=== PATIENT | male | born 1935 | race Caucasian/White ===

== ENCOUNTER 2016-04-13 09:54 | Outpatient (CLI) | payer MEDICARE, OTHER | END 2016-04-13 09:55 | disposition home or self-care (01) | DX: D63.1 Anemia in chronic kidney disease (principal) ==

== ENCOUNTER 2016-06-24 09:35 | Outpatient (CLI) | payer MEDICARE, OTHER | END 2016-06-24 09:36 | disposition home or self-care (01) | DX: I05.9 Rheumatic mitral valve disease, unspecified (principal); I25.10 Atherosclerotic heart disease of native coronary artery without angina pectoris ==

== ENCOUNTER 2017-04-10 08:00 | Outpatient (CLI) | payer MEDICARE, OTHER ==
[2017-04-10 19:35] LABS: BASOPHILS % (AUTO) 0.6 %; EOSINOPHILS # (AUTO) 0.4 10^3/uL (0.0-0.7); EOSINOPHILS % (AUTO) 6.9 %; HGB - HEMOGLOBIN 13.3 g/dL (14.0-18.0); LYMPHOCYTES # (AUTO) 1.2 10^3/uL (1.5-3.5); LYMPHOCYTES % (AUTO) 23.2 %; MEAN CORPUSCULAR HEMOGLOBIN 32.5 pg (27.0-31.0); MEAN CORPUSCULAR HGB CONC 33.3 g/dL (32.0-36.0); MEAN CORPUSCULAR VOLUME 97.6 fL (80.0-94.0); MEAN PLATELET VOLUME 7.2 fL (7.4-11.4); MONOCYTES # (AUTO) 0.7 10^3/uL (0.0-1.0); MONOCYTES % (AUTO) 12.5 %; NEUTROPHILS % (AUTO) 56.8 %; PLT - PLATELET COUNT 232 10^3/uL (130-450); RED BLOOD COUNT 4.11 10^6/uL (4.70-6.10); RED CELL DISTRIBUTION WIDTH 14.1 % (12.0-15.0); WHITE BLOOD COUNT 5.3 x10^3/uL (4.8-10.8)
[2017-04-10 19:40] LABS: ALBUMIN 3.7 g/dL (3.2-5.5); BILIRUBIN,TOTAL 0.4 mg/dL (0.2-1.0); CALCIUM 9.8 mg/dL (8.5-10.3); CREATININE 2.3 mg/dL (0.6-1.2); TOTAL PROTEIN 7.3 g/dL (6.7-8.2)
== END 2017-04-10 08:01 | disposition home or self-care (01) ==
LOC: LAB.WCP 08:00
PROVIDERS: ATTEND Family Medicine
DX: I50.9 Heart failure, unspecified (principal); I25.10 Atherosclerotic heart disease of native coronary artery without angina pectoris; D63.1 Anemia in chronic kidney disease; N18.9 Chronic kidney disease, unspecified; I12.9 Hypertensive chronic kidney disease with stage 1 through stage 4 chronic kidney disease, or unspecified chronic kidney disease
CPT/HCPCS: 36415; 80053; 84443; 85025

== ENCOUNTER 2017-07-24 21:52 | Emergency (ER) | payer MEDICARE, OTHER ==
--- NOTE | 2017-07-24 22:46 | ED Physician Documentation ---
History of Present Illness - Stated complaint Stated Complaint: HI FEVER - Chief complaint Chief Complaint: Resp - History obtained from History obtained from: Patient - History of Present Illness Timing: Yesterday Pain level now: 0 Improved by: no ameliorating factors Worsened by: no exacerbating factors - Additonal information Additional information: c/o rhinorrhea (clear, thin), CAN CRIMPER cough, mild generalized headache, and sinus congestion since yesterday. His chief concern wast that tonight he measured fever of 100.4 at home. He did not take anything that would reduce fever (such as acetaminophen or ibuprofen) today or tonight. Review of Systems Constitutional: reports: Fever (Tmax 100.4). denies: Chills, Myalgias, Fatigue , Sweats Ears: denies: Ear pain Nose: reports: Rhinorrhea / runny nose, Congestion. denies: Sinus pressure / pain Throat: denies: Sore throat Cardiac: reports: Reviewed and negative Respiratory: reports: Cough. denies: Dyspnea, Wheezing GI: reports: Reviewed and negative PD PAST MEDICAL HISTORY - Past Medical History Cardiovascular: Hypertension, High cholesterol, Coronary artery disease, [place], Valve disorder Respiratory: Pneumonia, Sleep apnea, CPAP use Neuro: None Endocrine/Autoimmune: None GI: None : None Psych: None Musculoskeletal: None Derm: Eczema, Psoriasis - Past Surgical History Past Surgical History: Yes General: Cholecystectomy, Appendectomy, Hiatal hernia repair Cardiovascular: CABG, Coronary stent, Other HEENT: Tonsil/Adenoidectomy - Present Medications Home Medications: Ambulatory Orders Medication Instructions Recorded Confirmed Aspirin [Maribeth] 325 mg PO ONCE 02/02/13 01/13/15 Atorvastatin Calcium [Lipitor] 80 mg PO HS 02/02/13 01/13/15 Carvedilol [Coreg] 6.25 mg PO BID 02/02/13 01/13/15 Cetirizine [ZyrTEC] 5 mg PO DAILY 02/02/13 01/13/15 Cholecalciferol (Vitamin D3) 4,000 unit PO DAILY 02/02/13 01/13/15 [Vitamin D-3] Clopidogrel [Plavix] 75 mg PO ONCE 02/02/13 01/13/15 Fluticasone [Flonase] 1 sprays CLARK DAILY 02/02/13 01/13/15 Folic Acid 800 mg PO DAILY 02/02/13 01/13/15 Furosemide [Lasix] 10 mg PO DAILY 02/02/13 01/13/15 Losartan [Cozaar] 25 mg PO DAILY 02/02/13 01/13/15 Clobetasol Propionate/Emoll 1 applic TOP QPM 03/29/14 01/13/15 [Temovate Emollient 0.05% Crm] Esomeprazole Magnesium [Nexium] 1 cap PO BID 03/29/14 01/13/15 Isosorbide Mononitrate [Isosorbide 30 mg PO BID 03/29/14 01/13/15 Mononitrate ER] Nitroglycerin Dixon [Nitrolingual 1 spray SL DAILY 03/29/14 01/13/15 Dixon] - Allergies Allergies/Adverse Reactions: Allergies Allergy/AdvReac Type Severity Reaction Status Date / Time Penicillins AdvReac Severe passed out Verified 07/24/17 22:32 codeine [Codeine] AdvReac Intermediate gi problems Verified 07/24/17 22:32 onion family Allergy Emesis Uncoded 07/24/17 22:32 - Social History Does the pt smoke?: No Smoking Status: Never smoker Does the pt drink ETOH?: Yes Does the pt have substance abuse?: No - Immunizations Immunizations are current?: No Immunizations: TDAP >10years/unknown - POLST Patient has POLST: Yes PD ED PE NORMAL - Vitals Vital signs reviewed: Yes - General General: Alert and oriented X 3, No acute distress, Well developed/nourished - HEENT HEENT: Moist mucous membranes, Pharynx benign - Neck Neck: Supple, no meningeal sign - Cardiac Cardiac: RRR, No murmur - Respiratory Respiratory: No respiratory distress, Clear bilaterally - Extremities Extremities: No edema Results - Vitals Vitals: Vital Signs - 24 hr 07/24/17 07/24/17 21:55 23:10 Temperature 37.1 C 37.3 C Heart Rate 63 67 Respiratory 18 16 Rate Blood Pressure 172/90 H 157/69 H O2 Saturation 95 100 Oxygen O2 Source Room air PD MEDICAL DECISION MAKING - ED course Complexity details: considered differential, d/w patient ED course: well-appearing, NAD. presents with URI symptoms including sinus congestion. cough but denies dyspnea, chest pain, or sensation of chest congestion. 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 Unremarkable physical exam including CTA bilateral pulmonary exam. VSS. emergent testing not indicated at this time, encouraged to return if worse and f/u with PMD if not improving Departure - Departure Disposition: 01 Home, Self Care Clinical Impression: Bronchitis Sinusitis Qualifiers: Sinusitis location: unspecified location Chronicity: unspecified Qualified Code (s): J32.9 - Chronic sinusitis, unspecified Condition: Good Instructions: ED Upper Resp Infec No Abx Tx, ED Sinusitis No Abx Follow-Up: Jorge Lema MD [Primary Care Provider] - Discharge Date/Time: 07/24/17 23:15
[2017-07-24 23:21] VITALS: BP 157/69
== END 2017-07-24 23:15 | disposition home or self-care (01) ==
LOC: ED 21:52
DX: J40 Bronchitis, not specified as acute or chronic (principal); J32.9 Chronic sinusitis, unspecified; I10 Essential (primary) hypertension; E78.00 Pure hypercholesterolemia, unspecified; I25.10 Atherosclerotic heart disease of native coronary artery without angina pectoris; I25.2 Old myocardial infarction; Z95.5 Presence of coronary angioplasty implant and graft; Z95.1 Presence of aortocoronary bypass graft; Z79.82 Long term (current) use of aspirin
CPT/HCPCS: 99282; 99283

== ENCOUNTER 2017-12-20 10:00 | Outpatient (CLI) | payer MEDICARE, OTHER ==
[2017-12-20 12:49] LABS: BASOPHILS % (AUTO) 0.6 %; EOSINOPHILS # (AUTO) 0.3 10^3/uL (0.0-0.7); EOSINOPHILS % (AUTO) 4.9 %; HGB - HEMOGLOBIN 13.6 g/dL (14.0-18.0); LYMPHOCYTES # (AUTO) 1.2 10^3/uL (1.5-3.5); LYMPHOCYTES % (AUTO) 22.5 %; MEAN CORPUSCULAR HEMOGLOBIN 33.5 pg (27.0-31.0); MEAN CORPUSCULAR HGB CONC 34.9 g/dL (32.0-36.0); MEAN PLATELET VOLUME 7.5 fL (7.4-11.4); MONOCYTES # (AUTO) 0.4 10^3/uL (0.0-1.0); MONOCYTES % (AUTO) 7.8 %; NEUTROPHILS # (AUTO) 3.4 10^3/uL (1.5-6.6); NEUTROPHILS % (AUTO) 64.2 %; PLT - PLATELET COUNT 180 10^3/uL (130-450); RED BLOOD COUNT 4.08 10^6/uL (4.70-6.10); RED CELL DISTRIBUTION WIDTH 14.6 % (12.0-15.0); WHITE BLOOD COUNT 5.2 x10^3/uL (4.8-10.8)
[2017-12-20 13:05] LABS: ALBUMIN 4.1 g/dL (3.2-5.5); ALBUMIN/GLOBULIN RATIO 1.5 (1.0-2.2); ALKALINE PHOSPHATASE 85 IU/L (42-121); ALT ALANINE AMINOTRANSFERASE 17 IU/L (10-60); AST ASPARTATE AMINOTRANSFERASE 23 IU/L (10-42); BILIRUBIN,TOTAL 0.7 mg/dL (0.2-1.0); BUN - BLOOD UREA NITROGEN 36 mg/dL (6-20); CALCIUM 10.1 mg/dL (8.5-10.3); CARBON DIOXIDE - CO2 27 mmol/L (21-32); CHLORIDE 104 mmol/L (101-111); CHOL/HDL RATIO 4.4 (<5.0); CHOLESTEROL 194 mg/dL; CREATININE 2.1 mg/dL (0.6-1.2); GFR - MDRD 30 (>89); GLUCOSE 119 mg/dL (70-100); HB2 TOTAL 14.3 g/dL; HDL CHOLESTEROL 44 mg/dL; HEMOGLOBIN A1C 0.59 g/dL; HEMOGLOBIN A1C % 5.9 % (4.6-6.2); LDL CHOLESTEROL,CALCULATED 96 mg/dL; LDL/HDL RATIO 2.2 (<3.6); SODIUM 138 mmol/L (135-145); TOTAL PROTEIN 6.8 g/dL (6.7-8.2); VLDL CHOLESTEROL 54 mg/dL
== END 2017-12-20 10:01 | disposition home or self-care (01) ==
LOC: LAB.WCP 10:00
PROVIDERS: ATTEND Family Medicine
DX: E78.5 Hyperlipidemia, unspecified (principal); R73.02 Impaired glucose tolerance (oral); I10 Essential (primary) hypertension; Z79.899 Other long term (current) drug therapy; D63.1 Anemia in chronic kidney disease
CPT/HCPCS: 36415; 80053; 80061; 83036; 83721; 85025

== ENCOUNTER 2017-12-20 17:19 | Outpatient (CLI) | payer MEDICARE, OTHER ==
--- NOTE | 2017-12-20 18:47 | Ultrasound Report ---
Reason: LEG PAIN, BILATERAL Procedure Date: 12/20/2017 Accession Number: [id number] / [id number] Procedure: US - Duplex Ext Veins Bilateral CPT Code: FULL RESULT: EXAM: BILATERAL LOWER EXTREMITY VENOUS ULTRASOUND EXAM DATE: 12/20/2017 06:05 PM. CLINICAL HISTORY: LEG PAIN, BILATERAL. COMPARISON: None. TECHNIQUE: Real-time sonographic vascular imaging was performed by the headlight adjuster through the lower extremities utilizing both color-flow and Doppler spectral analysis. Multiple manufacturers service representative static images were saved for review. FINDINGS: Right: Common Femoral Vein (CFV): Normal. CFV-GSV Junction: Normal. Profunda Femoral Vein (PFV): Normal. Femoral Vein (FV) Prox: Normal. Femoral Vein (FV) Mid: Normal. Femoral Vein (FV) Dist: Normal. Popliteal Vein: Normal. Posterior Tibial Veins: Normal. Peroneal Veins: Normal. Left: Common Femoral Vein (CFV): Normal. CFV-GSV Junction: Normal. Profunda Femoral Vein (PFV): Normal. Femoral Vein (FV) Prox: Normal. Femoral Vein (FV) Mid: Normal. Femoral Vein (FV) Dist: Normal. Popliteal Vein: Normal. Posterior Tibial Veins: Normal. Peroneal Veins: Normal. Other: None. IMPRESSION: No evidence for deep venous thrombosis bilaterally. RADIA The above findings were discussed with Denice Carty by Dr. Mercy Guadalupe at 18:45 hrs on 12/20/17.
== END 2017-12-20 17:20 | disposition home or self-care (01) ==
LOC: DI 17:19
PROVIDERS: ATTEND Family Medicine
DX: M79.605 Pain in left leg (principal); M79.604 Pain in right leg; Z79.899 Other long term (current) drug therapy; E78.5 Hyperlipidemia, unspecified; I10 Essential (primary) hypertension; D63.1 Anemia in chronic kidney disease
CPT/HCPCS: 36415; 80053; 80061; 83036; 83721; 85025; 93970

== ENCOUNTER 2018-01-08 18:50 | Outpatient (CLI) | payer MEDICARE, OTHER | END 2018-01-08 18:51 | disposition critical access hospital (66) | LOC: EMS 18:50 | PROVIDERS: ATTEND Surgery | DX: R53.1 Weakness (principal); R05 Cough; R50.9 Fever, unspecified; M79.10 Myalgia, unspecified site | CPT/HCPCS: A0425; A0427 ==

== ENCOUNTER 2018-01-08 18:57 | Inpatient (IN) | payer MEDICARE, OTHER ==
[2018-01-08] MEDS ORDERED: OSELTAMIVIR 75 MG CAPSULE PO STA (20:50)
[2018-01-08 21:35] LABS: BASOPHILS % (AUTO) 0.5 %; HGB - HEMOGLOBIN 13.6 g/dL (14.0-18.0); LYMPHOCYTES # (AUTO) 0.6 10^3/uL (1.5-3.5); LYMPHOCYTES % (AUTO) 10.3 %; MEAN CORPUSCULAR HEMOGLOBIN 33.4 pg (27.0-31.0); MEAN CORPUSCULAR VOLUME 95.4 fL (80.0-94.0); MEAN PLATELET VOLUME 7.5 fL (7.4-11.4); MONOCYTES # (AUTO) 0.6 10^3/uL (0.0-1.0); MONOCYTES % (AUTO) 9.7 %; NEUTROPHILS # (AUTO) 4.8 10^3/uL (1.5-6.6); NEUTROPHILS % (AUTO) 79.5 %; PLT - PLATELET COUNT 106 10^3/uL (130-450); RED BLOOD COUNT 4.07 10^6/uL (4.70-6.10); RED CELL DISTRIBUTION WIDTH 14.6 % (12.0-15.0)
[2018-01-08 21:44] LABS: ALBUMIN 3.5 g/dL (3.2-5.5); ALBUMIN/GLOBULIN RATIO 1.2 (1.0-2.2); BILIRUBIN,TOTAL 1.1 mg/dL (0.2-1.0); CALCIUM 8.9 mg/dL (8.5-10.3); CREATININE 2.4 mg/dL (0.6-1.2); TOTAL PROTEIN 6.4 g/dL (6.7-8.2)
[2018-01-08] MEDS ORDERED: ACETAMINOPHEN 500 MG TABLET PO STA (22:20)
[2018-01-08] MEDS ORDERED: SODIUM CHLORIDE 0.9% 1,000 ML IV ONE (22:20)
--- NOTE | 2018-01-08 23:06 | XRAY Report ---
Reason: cough Procedure Date: 01/08/2018 Accession Number: [id number] / [id number] Procedure: XR - Chest 2 View X-Ray CPT Code: 24260 FULL RESULT: EXAM: CHEST RADIOGRAPHY EXAM DATE: 01/08/2018 10:51 PM. CLINICAL HISTORY: Cough. COMPARISON: CHEST 2 VIEW PA/LAT 01/07/2018 2:25 PM. TECHNIQUE: 2 views. FINDINGS: Lungs/Pleura: There are new bibasilar infiltrates present. Trace left effusion. No pneumothorax. Mediastinum: Stable postoperative changes. Other: None. IMPRESSION: New bibasilar infiltrates and trace left effusion. RADIA
[2018-01-08] MEDS ORDERED: PROCHLORPERAZINE 10 MG/2 ML VIAL IVP PRN (23:25)
[2018-01-08] MEDS ORDERED: ONDANSETRON 4 MG/2 ML VIAL IVP PRN (23:25)
[2018-01-08] MEDS ORDERED: SODIUM CHLORIDE FLUSH 0.9% 10 ML SYRINGE IVP PRN (23:25)
[2018-01-08] MEDS ORDERED: oxyCODONE 5 MG TABLET PO PRN (23:25)
[2018-01-08] MEDS ORDERED: ACETAMINOPHEN 325 MG TABLET PO PRN (23:25)
[2018-01-08] MEDS ORDERED: ZOLPIDEM 5 MG TABLET PO PRN (23:25)
[2018-01-08] MEDS ORDERED: PROMETHAZINE 25 MG/1 ML VIAL IM PRN (23:25)
[2018-01-08] MEDS ORDERED: ALBUTEROL NEB 2.5 MG/3 ML INH PRN (23:25)
--- NOTE | 2018-01-08 23:27 | ED Physician Documentation ---
History of Present Illness - Stated complaint Stated Complaint: WEAKNESS - Chief complaint Chief Complaint: General - History obtained from History obtained from: Patient, Family - History of Present Illness Timing: Yesterday - Additonal information Additional information: Patient is an 82 year old male who is presenting to the emergency department for fever, cough and generally not feeling well. Patient saw his pmd and was diagnosed with influenza but was unable to fill his prescription for tamiflu. patient's symptoms got progressively worse this evening and was unable to walk to the bathroom by himself so his brought him in for evaluation. Review of Systems Constitutional: reports: Fever, Chills, Myalgias Nose: reports: Rhinorrhea / runny nose, Congestion Respiratory: reports: Cough GI: reports: Nausea. denies: Vomiting, Constipation, Diarrhea : reports: Reviewed and negative Skin: denies: Rash, Lesions Neurologic: reports: Generalized weakness. denies: Focal weakness, Numbness Immunocompromised: denies: Immunocompromised PD PAST MEDICAL HISTORY - Past Medical History Cardiovascular: Hypertension, High cholesterol, Coronary artery disease, [place], Valve disorder Respiratory: Pneumonia, Sleep apnea, CPAP use Endocrine/Autoimmune: None GI: None : None Psych: None Musculoskeletal: None Derm: Eczema, Psoriasis - Past Surgical History Past Surgical History: Yes General: Cholecystectomy, Appendectomy, Hiatal hernia repair Cardiovascular: CABG, Coronary stent, Other HEENT: Tonsil/Adenoidectomy - Present Medications Home Medications: Ambulatory Orders Medication Instructions Recorded Confirmed Aspirin [Maribeth] 325 mg PO ONCE 02/02/13 01/13/15 Atorvastatin Calcium [Lipitor] 80 mg PO HS 02/02/13 01/13/15 Carvedilol [Coreg] 6.25 mg PO BID 02/02/13 01/13/15 Cetirizine [ZyrTEC] 5 mg PO DAILY 02/02/13 01/13/15 Cholecalciferol (Vitamin D3) 4,000 unit PO DAILY 02/02/13 01/13/15 [Vitamin D-3] Clopidogrel [Plavix] 75 mg PO ONCE 02/02/13 01/13/15 Fluticasone [Flonase] 1 sprays CLARK DAILY 02/02/13 01/13/15 Folic Acid 800 mg PO DAILY 02/02/13 01/13/15 Furosemide [Lasix] 10 mg PO DAILY 02/02/13 01/13/15 Losartan [Cozaar] 25 mg PO DAILY 02/02/13 01/13/15 Clobetasol Propionate/Emoll 1 applic TOP QPM 03/29/14 01/13/15 [Temovate Emollient 0.05% Crm] Esomeprazole Magnesium [Nexium] 1 cap PO BID 03/29/14 01/13/15 Isosorbide Mononitrate [Isosorbide 30 mg PO BID 03/29/14 01/13/15 Mononitrate ER] Nitroglycerin Lannon [Nitrolingual 1 spray SL DAILY 03/29/14 01/13/15 Lannon] - Allergies Allergies/Adverse Reactions: Allergies Allergy/AdvReac Type Severity Reaction Status Date / Time Penicillins AdvReac Severe passed out Verified 01/08/18 18:59 codeine [Codeine] AdvReac Intermediate gi problems Verified 01/08/18 18:59 onion family Allergy Emesis Uncoded 01/08/18 18:59 - Social History Does the pt smoke?: No Smoking Status: Never smoker Does the pt drink ETOH?: Yes Does the pt have substance abuse?: No - Immunizations Immunizations are current?: No Immunizations: TDAP >10years/unknown - POLST Patient has POLST: Yes PD ED PE NORMAL - Vitals Vital signs reviewed: Yes - General General: Alert and oriented X 3 - HEENT HEENT: Atraumatic - Cardiac Cardiac: RRR - Derm Derm: Normal color, Other (diaphoretic) - Extremities Extremities: No deformity - Neuro Neuro: Alert and oriented X 3 Eye Opening: Spontaneous Motor: Obeys Commands Verbal: Oriented GCS Score: 15 PD ED PE EXPANDED - General General: Alert, Other (diaphoretic and ill appearing) - HEENT HEENT: Nasal congestion, Rhinorrhea - Respiratory Respiratory: Decreased breath sounds, Right lower lobe, Left lower lobe Results - Vitals Vitals: Vital Signs - 24 hr 01/08/18 01/08/18 01/08/18 18:59 20:17 22:20 Temperature 37.2 C 38.9 C H Heart Rate 87 73 75 Respiratory 18 20 18 Rate Blood Pressure 102/76 121/62 125/70 O2 Saturation 90 L 90 L 94 01/08/18 23:23 Temperature 39.4 C H Heart Rate 78 Respiratory 16 Rate Blood Pressure 119/64 O2 Saturation 97 Oxygen O2 Source Nasal cannula Oxygen Flow Rate 2 - Labs Labs: Laboratory Tests 01/08/18 01/08/18 01/08/18 19:25 21:20 21:20 WBC 6.0 RBC 4.07 L Hgb 13.6 L Hct 38.8 L MCV 95.4 H MCH 33.4 H MCHC 35.0 RDW 14.6 Plt Count 106 L MPV 7.5 Neut # (Auto) 4.8 Lymph # (Auto) 0.6 L Grayson # (Auto) 0.6 Eos # (Auto) 0.0 Baso # (Auto) 0.0 Absolute Nucleated RBC 0.00 Nucleated RBC % 0.1 Sodium 134 L Potassium 3.8 Chloride 100 L Carbon Dioxide 25 Anion Gap 9.0 BUN 34 H Creatinine 2.4 H Estimated GFR (MDRD) 26 L Glucose 110 H Lactic Acid Calcium 8.9 Total Bilirubin 1.1 H AST 37 ALT 26 Alkaline Phosphatase 78 Total Protein 6.4 L Albumin 3.5 Globulin 2.9 Albumin/Globulin Ratio 1.2 Lipase 32 Influenza A (Rapid) POSITIVE H Influenza B (Rapid) Negative 01/08/18 21:20 WBC RBC Hgb Hct MCV MCH MCHC RDW Plt Count MPV Neut # (Auto) Lymph # (Auto) Grayson # (Auto) Eos # (Auto) Baso # (Auto) Absolute Nucleated RBC Nucleated RBC % Sodium Potassium Chloride Carbon Dioxide Anion Gap BUN Creatinine Estimated GFR (MDRD) Glucose Lactic Acid 1.2 Calcium Total Bilirubin AST ALT Alkaline Phosphatase Total Protein Albumin Globulin Albumin/Globulin Ratio Lipase Influenza A (Rapid) Influenza B (Rapid) - Rads (name of study) chest x-ray Radiology: Final report received (bilateral bibasilar infiltrates) PD MEDICAL DECISION MAKING - ED course Complexity details: reviewed old records, reviewed results, re-evaluated almas lozada, considered differential, d/w patient, d/w family, d/w operations consultant ED course: Patient was seen and examined at bedside. Patient was hypoxic on room air at 90% and treated with supplemental oxygen. patient was positive for influenza and was treated with tamiflu 75mg, ns bolus and tylenol for fever. labs were drawn including cultures. chest x-ray was ordered. patient originally refused the chest x-ray, so there was a delay. Chest x-ray was found to show bilateral infiltrates. Case was discussed with hospitalist. patient was treated with azithromycin and rocephin. Patient was accepted by the hospitalist for for further care. - Sepsis Event Vital Signs: Vital Signs - 24 hr 01/08/18 01/08/18 01/08/18 18:59 20:17 22:20 Temperature 37.2 C 38.9 C H Heart Rate 87 73 75 Respiratory 18 20 18 Rate Blood Pressure 102/76 121/62 125/70 O2 Saturation 90 L 90 L 94 01/08/18 23:23 Temperature 39.4 C H Heart Rate 78 Respiratory 16 Rate Blood Pressure 119/64 O2 Saturation 97 Oxygen O2 Source Nasal cannula Oxygen Flow Rate 2 Departure - Departure Disposition: [facility] DC/Xfer Clinical Impression: Influenza A Condition: Stable Discharge Date/Time: 01/09/18 00:50
[2018-01-08] MEDS ORDERED: IBUPROFEN 600 MG TABLET PO STA (23:40)
[2018-01-08] MEDS ORDERED: ASPIRIN 325 MG TABLET PO SCH (23:45)
[2018-01-08] MEDS ORDERED: CLOPIDOGREL 75 MG TABLET PO SCH (23:45)
[2018-01-08] MEDS ORDERED: SODIUM CHLORIDE 0.9% 1,000 ML IV SCH (23:45)
--- NOTE | 2018-01-08 23:48 | HISTORY & PHYSICAL EXAMINATION ---
Chief Complaint - Chief Complaint Chief Complaint: Weakness and fever History of Present Illness - Admitted From Admitted From:: Emergency Department - History Obtained From Records Reviewed: Yes History obtained from: Patient Exam Limitations: None - History of Present Illness HPI Comment/Other: Patient is an 82-year-old gentleman with a past medical history significant for coronary artery disease status post 8 stents and CABG x2, obstructive sleep apnea on CPAP, mitral regurgitation status post clip repair, hypertension, hyperlipidemia, chronic kidney disease stage III and hiatal hernia repair who presented to the emergency department with a chief complaint of weakness and fever. The patient states that he was in his normal state of health when 2 days ago in the afternoon he was on the phone and then all of a sudden started to feel ill. He states that it started with a runny nose and body aches and then he began to have chills and had the hardest time getting warm again. He states he became extremely weak and could barely get up off the couch. He states that later in the day when getting up out of his bed he actually fell and hit the right side of his torso against a dresser. He states that yesterday he went to see his primary care physician and ended up seeing the physician engineering assistant who ordered a chest x-ray and did a flu swab but did not start him on any treatment. He states that his weakness continued to worsen over the course of the day yesterday. He states today he was having fevers with increasing weakness and began developing a cough with yellow sputum production and felt short of breath. He also states that he has been having headaches and nausea throughout the day. He states that he has a very poor appetite and has barely eaten anything in the last 2 days. He states that since the symptoms were not improving he finally decided to come to the emergency department. Patient denies any blurred vision, sore throat, difficulty swallowing, chest pain, orthopnea, PND, increased lower extremity swelling, abdominal pain, vomiting, diarrhea, constipation, urinary urgency, urinary frequency, dysuria, joint swelling, back pain, neck stiffness, recent unintentional weight loss, skin rash, skin changes, hair loss, polyuria, polydipsia, night sweats or any focal neurologic deficits. On presentation to the emergency department the patient was initially afebrile but then spiked a fever up to 38.9, blood pressure and heart rate remained stable. The patient was slightly hypoxic down to 90% on room air. The patient underwent a flu swab which was positive for influenza A. The patient's lab work revealed acute on chronic renal failure with a creatinine up to 2.4. The atul ent also had slightly elevated BUN and a low sodium all concerning for dehydration. The patient did not have any leukocytosis but did have a mild thrombocytopenia. The patient's chest x-ray revealed bibasilar infiltrates and a trace left effusion concerning for pneumonia. The patient was admitted to the medical escobar for influenza A and community-acquired pneumonia. Blood cultures were taken in the emergency department and patient was started on Tamiflu, ceftriaxone and azithromycin. History - Past Medical History Cardiovascular: reports: Hypertension, High cholesterol, Coronary artery disease, [place], Valve disorder Respiratory: reports: Pneumonia, Sleep apnea, CPAP use Endocrine/Autoimmune: reports: None GI: reports: None : reports: Renal insuffiency Psych: reports: None Musculoskeletal: reports: None Derm: reports: Eczema, Psoriasis MRSA Hx?: No - Past Surgical History General: reports: Cholecystectomy, Appendectomy, Hiatal hernia repair Cardiovascular: reports: CABG, Coronary stent, Other HEENT: reports: Tonsil/Adenoidectomy Derm: reports: Skin cancer surgery - Family & Social History Family History: Mother: (Mother of congestive heart failure and father of cancer), CAD, Father: , Cancer, Brother: Cancer Living arrangement: At home Living Situation: With spouse/s.o. Social History Notes: The patient lives in [place] with his and dog. He has been to his for 50 years they did not have any children. The patient is born and raised in [place] 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 The patient's inherited [address] land in [facility] [facility] [place] from her father and they decided to come here and retire. The patient quit smoking about 50 years ago prior to that he smoked 1 pack a day for 15 years. He drinks alcohol socially but is not a daily drinker. He denies any illicit drug use. - POLST Patient has POLST: No POLST Status: Full Code Meds/Allgy - Home Medications Home Medications: Ambulatory Orders Medication Instructions Recorded Confirmed Aspirin [Maribeth] 325 mg PO ONCE 02/02/13 01/13/15 Atorvastatin Calcium [Lipitor] 80 mg PO HS 10/28/13 10/08/15 Carvedilol [Coreg] 6.25 mg PO BID 02/02/13 01/13/15 Cetirizine [ZyrTEC] 5 mg PO DAILY 02/02/13 01/13/15 Cholecalciferol (Vitamin D3) 4,000 unit PO DAILY 02/02/13 01/13/15 [Vitamin D-3] Clopidogrel [Plavix] 75 mg PO ONCE 02/02/13 01/13/15 Fluticasone [Flonase] 1 sprays CLARK DAILY 02/02/13 01/13/15 Folic Acid 800 mg PO DAILY 02/02/13 01/13/15 Furosemide [Lasix] 10 mg PO DAILY 02/02/13 01/13/15 Losartan [Cozaar] 25 mg PO DAILY 02/02/13 01/13/15 Clobetasol Propionate/Emoll 1 applic TOP QPM 03/29/14 01/13/15 [Temovate Emollient 0.05% Crm] Esomeprazole Magnesium [Nexium] 1 cap PO BID 03/29/14 01/13/15 Isosorbide Mononitrate [Isosorbide 30 mg PO BID 03/29/14 01/13/15 Mononitrate ER] Nitroglycerin [place] [Nitrolingual 1 spray SL DAILY 03/29/14 01/13/15 [place]] - Allergies Allergies/Adverse Reactions: Allergies Allergy/AdvReac Type Severity Reaction Status Date / Time Penicillins AdvReac Severe passed out Verified 01/08/18 18:59 codeine [Codeine] AdvReac Intermediate gi problems Verified 01/08/18 18:59 onion family Allergy Emesis Uncoded 01/08/18 18:59 Review of Systems - Other Findings Other Findings: A comprehensive review of systems was performed the pertinent positives and negatives are stated above in the HPI and the remainder of the review of systems is negative. Prior Level of Functionality: At his baseline the patient is fully independent. He does not use any assistance devices for ambulation. He is able to perform all his activities of daily living independently. Exam - Vital Signs Reviewed Vital Signs: Yes Vital Signs: Vital Signs x48h Temp Pulse Resp BP Pulse Ox 01/08/18 23:23 39.4 C H 78 16 119/64 97 01/08/18 22:20 38.9 C H 75 18 125/70 94 01/08/18 20:17 73 20 121/62 90 L 01/08/18 18:59 37.2 C 87 18 102/76 90 L - Physical Exam General Appearance: positive: Alert, Other (Ill-appearing, flushed and very warm to touch) Eyes Bilateral: positive: Normal inspection, PERRL, EOMI, No lid inflammation, Conjunctivae nml, No scleral icterus ENT: positive: ENT inspection nml, Pharynx nml, Dry mucous membranes. negative: Purulent nasal drainage, Pharyngeal erythema, Oral lesions Neck: positive: Nml inspection, Thyroid nml, No JVD, Trachea midline. negative: Thyromegaly, Lymphadenopathy (R), Lymphadenopathy (L), Stiff neck, Carotid bruit , Tracheal deviation Respiratory: positive: Chest non-tender, No respiratory distress, Rhonchi (Bibasilar) Cardiovascular: positive: Regular rate & rhythm, No murmur, No gallop, Systolic murmur Peripheral Pulses: positive: 2+ Abdomen: positive: Non-tender, No organomegaly, Nml bowel sounds, No distention. negative: Guarding, Rebound, Hepatomegaly Back: positive: Nml inspection. negative: CVA tenderness (R), CVA tenderness (L) Skin: positive: Color nml, No rash, Warm, Dry. negative: Cyanosis, Diaphoresis, Pallor Extremities: positive: Non-tender, Full ROM, Nml appearance, No pedal edema Neurologic/Psychiatric: positive: Oriented x3, CN's nml (2-12), Motor nml, Sensation nml, Mood/affect nml Conclusion/Plan - Problem List (1) CAP (community acquired pneumonia) Conclusion/Plan: Patient presented to the emergency department with generalized weakness and fever. The patient has also been having increasing cough and shortness of breath over the course of the last day. The patient was found to have influenza A positive on his flu swab and chest x-ray revealed a by basilar pneumonia. The patient was hypoxic on presentation down to 90% on room air. The patient's pneumonia severity index score is 136 which puts him at a risk class V, 27-29.2% mortality. Based on the score hospitalization is recommended. Plan: Admit patient to medical escobar IV fluids IV antibiotics with ceftriaxone and azithromycin Tylenol for fever Supplemental oxygen Monitor closely Qualifiers: Laterality: unspecified laterality Qualified Code(s): J18.9 - Pneumonia, unspecified organism (2) Influenza A Conclusion/Plan: Patient presented to the emergency department with generalized weakness and fever. Over the last 3 days the patient has been having symptoms of weakness, body aches, fevers, chills, nausea, decreased appetite and today developed cough and shortness of breath. The patient's flu swab was positive for influenza A on presentation to the ER. The patient appears to have had influenza for the last 2 days and now has developed pneumonia on his chest x-ray. Plan: IV fluids and supportive care Tamiflu adjusted for renal dosing Tylenol for fever (3) Acute renal failure superimposed on stage 3 chronic kidney disease Conclusion/Plan: Patient has a history of chronic kidney disease stage III. Today the patient's creatinine is elevated 2.4 and BUN is elevated to 34. Patient appears to have acute on chronic renal failure likely secondary to dehydration from ongoing infection. Plan: IV fluids Avoid nephrotoxic agents Monitor creatinine Qualifiers: Acute renal failure type: unspecified Qualified Code(s): N17.9 - Acute kidney failure, unspecified; N18.3 - Chronic kidney disease, stage 3 (moderate) (4) Hyponatremia Conclusion/Plan: Patient has mild hyponatremia on presentation with a sodium of 134. Given patient's ongoing infection he likely has dehydration. Patient appears to have hypovolemic hyponatremia. Patient will be given IV fluids and we will continue to monitor his sodium. (5) Hypertension Conclusion/Plan: The patient has a history of hypertension and on presentation to the emergency department the patient's blood pressure is controlled. We are concerned that the patient could become septic and become hypotensive. We will be careful in giving the patient his home antihypertensive medications. We will monitor the blood pressure closely and give him IV fluids. We will hold antihypertensive medications if the patient's blood pressure does drop. Qualifiers: Hypertension type: essential hypertension Qualified Code(s): I10 - Essential (primary) hypertension (6) History of coronary artery disease Conclusion/Plan: Patient has a history of coronary artery disease with 8 stents and 2 coronary artery bypass grafts. The patient is currently on optimal treatment with aspirin, Lipitor, Coreg and Plavix. He is not having any chest pain and his shortness of breath appears to be secondary to his pneumonia. Currently the patient is stable. We will get an echocardiogram since it has been a number of years since his last echo. (7) HONG on CPAP Conclusion/Plan: Patient has a history of obstructive sleep apnea. Patient will be continued on his home CPAP while he is hospitalized. (8) Hyperlipidemia Conclusion/Plan: The patient has a history of hyperlipidemia and is on Lipitor at home. We will continue the patient's home dose of Lipitor while he is hospitalized. Qualifiers: Hyperlipidemia type: unspecified Qualified Code(s): E78.5 - Hyperlipidemia, unspecified - Lab Results Fish Bones: 01/08/18 21:20 01/08/18 21:20 Other Lab Results: Laboratory Results WBC 6.0 x10^3/uL (4.8-10.8) 01/08/18 21:20 RBC 4.07 10^6/uL (4.70-6.10) L 01/08/18 21:20 Hgb 13.6 g/dL (14.0-18.0) L 01/08/18 21:20 Hct 38.8 % (42.0-52.0) L 01/08/18 21:20 MCV 95.4 fL (80.0-94.0) H 01/08/18 21:20 MCH 33.4 pg (27.0-31.0) H 01/08/18 21:20 MCHC 35.0 g/dL (32.0-36.0) 01/08/18 21:20 RDW 14.6 % (12.0-15.0) 01/08/18 21:20 Plt Count 106 10^3/uL (130-450) L 01/08/18 21:20 MPV 7.5 fL (7.4-11.4) 01/08/18 21:20 Neut # (Auto) 4.8 10^3/uL (1.5-6.6) 01/08/18 21:20 Lymph # (Auto) 0.6 10^3/uL (1.5-3.5) L 01/08/18 21:20 [place] # (Auto) 0.6 10^3/uL (0.0-1.0) 01/08/18 21:20 Eos # (Auto) 0.0 10^3/uL (0.0-0.7) 01/08/18 21:20 Baso # (Auto) 0.0 10^3/uL (0.0-0.1) 01/08/18 21:20 Absolute Nucleated RBC 0.00 x10^3/uL 01/08/18 21:20 Nucleated RBC % 0.1 /100WBC 01/08/18 21:20 Sodium 134 mmol/L (135-145) L 01/08/18 21:20 Potassium 3.8 mmol/L (3.5-5.0) 01/08/18 21:20 Chloride 100 mmol/L (101-111) L 01/08/18 21:20 Carbon Dioxide 25 mmol/L (21-32) 01/08/18 21:20 Anion Gap 9.0 (6-13) 01/08/18 21:20 BUN 34 mg/dL (6-20) H 01/08/18 21:20 Creatinine 2.4 mg/dL (0.6-1.2) H 01/08/18 21:20 Estimated GFR (MDRD) 26 (>89) L 01/08/18 21:20 Glucose 110 mg/dL (70-100) H 01/08/18 21:20 Lactic Acid 1.2 mmol/L (0.5-2.2) 01/08/18 21:20 Calcium 8.9 mg/dL (8.5-10.3) 01/08/18 21:20 Total Bilirubin 1.1 mg/dL (0.2-1.0) H 01/08/18 21:20 AST 37 IU/L (10-42) 01/08/18 21:20 ALT 26 IU/L (10-60) 01/08/18 21:20 Alkaline Phosphatase 78 IU/L (42-121) 01/08/18 21:20 Total Protein 6.4 g/dL (6.7-8.2) L 01/08/18 21:20 Albumin 3.5 g/dL (3.2-5.5) 01/08/18 21:20 Globulin 2.9 g/dL (2.1-4.2) 01/08/18 21:20 Albumin/Globulin Ratio 1.2 (1.0-2.2) 01/08/18 21:20 Lipase 32 U/L (22-51) 01/08/18 21:20 Influenza A (Rapid) POSITIVE (Negative) H 01/08/18 19:25 Influenza B (Rapid) Negative (Negative) 01/08/18 19:25 - Diagnostic Imaging Results Diagnostic Imaging Results: positive: Final report reviewed Diagnostic Imaging Results Comments: Chest x-ray Impression: New bibasilar infiltrates and trace left effusion. Core Measures - Anticipated LOS I expect patient to be DC'd or transferred within 96 hours.: Yes - DVT/VTE - Prophylaxis VTE/DVT Prophylaxis med ordered at admit?: Yes
[2018-01-08] MEDS ORDERED: cefTRIAXone 1 GM in SODIUM CHLORIDE 0.9% MINIBAG 100 ML IV STA (23:52)
[2018-01-08] MEDS ORDERED: AZITHROMYCIN INJ 500 MG in SODIUM CHLORIDE 0.9% 250 ML IV STA (23:53)
[2018-01-09] MEDS: SODIUM CHLORIDE FLUSH 0.9% 10 ML SYRINGE IVP SCH ×3 (01:57→18:26)
[2018-01-09] MEDS: PANTOPRAZOLE 40 MG TABLET PO SCH (06:15)
[2018-01-09 06:37] LABS: BASOPHILS % (AUTO) 0.4 %; HGB - HEMOGLOBIN 12.6 g/dL (14.0-18.0); LYMPHOCYTES % (AUTO) 12.5 %; MEAN CORPUSCULAR HEMOGLOBIN 33.5 pg (27.0-31.0); MEAN CORPUSCULAR HGB CONC 34.5 g/dL (32.0-36.0); MEAN CORPUSCULAR VOLUME 97.1 fL (80.0-94.0); MEAN PLATELET VOLUME 7.6 fL (7.4-11.4); MONOCYTES # (AUTO) 0.7 10^3/uL (0.0-1.0); MONOCYTES % (AUTO) 8.9 %; NEUTROPHILS % (AUTO) 78.2 %; PLT - PLATELET COUNT 92 10^3/uL (130-450); RED BLOOD COUNT 3.76 10^6/uL (4.70-6.10); RED CELL DISTRIBUTION WIDTH 14.5 % (12.0-15.0); WHITE BLOOD COUNT 7.7 x10^3/uL (4.8-10.8)
[2018-01-09 07:03] LABS: ALBUMIN 2.9 g/dL (3.2-5.5); ALBUMIN/GLOBULIN RATIO 1.2 (1.0-2.2); ALKALINE PHOSPHATASE 63 IU/L (42-121); ALT ALANINE AMINOTRANSFERASE 22 IU/L (10-60); AST ASPARTATE AMINOTRANSFERASE 34 IU/L (10-42); BUN - BLOOD UREA NITROGEN 39 mg/dL (6-20); CALCIUM 8.3 mg/dL (8.5-10.3); CARBON DIOXIDE - CO2 23 mmol/L (21-32); CHLORIDE 103 mmol/L (101-111); CREATININE 2.6 mg/dL (0.6-1.2); GFR - MDRD 24 (>89); GLUCOSE 102 mg/dL (70-100); SODIUM 134 mmol/L (135-145); TOTAL PROTEIN 5.4 g/dL (6.7-8.2)
[2018-01-09 07:08] LABS: VBG PH 7.336 (7.31-7.41)
[2018-01-09] MEDS ORDERED: HEPARIN 5,000 UNIT/ML VIAL SUBQ SCH (09:00)
[2018-01-09] MEDS ORDERED: ISOSORBIDE MONONITRATE ER 30 MG TABLET PO SCH (09:00)
[2018-01-09] MEDS ORDERED: CARVEDILOL 3.125 MG TABLET PO SCH (09:00)
[2018-01-09] MEDS: cefTRIAXone 2 GM in SODIUM CHLORIDE 0.9% MINIBAG 100 ML IV SCH (10:17)
[2018-01-09] MEDS: SACCHAROMYCES BOULARDII 250 MG CAPSULE PO SCH ×2 (10:39→18:26)
[2018-01-09] MEDS: CETIRIZINE 10 MG TABLET PO SCH (10:40)
[2018-01-09] MEDS: CLOPIDOGREL 75 MG TABLET PO SCH (10:44)
[2018-01-09] MEDS: ASPIRIN 325 MG TABLET PO SCH (10:44)
[2018-01-09] MEDS: POLYETHYLENE GLYCOL 3350 17 GM PACKET PO SCH (11:06)
[2018-01-09] MEDS: OSELTAMIVIR 30 MG CAPSULE PO SCH (11:25)
[2018-01-09] MEDS: LOSARTAN 50 MG TABLET PO SCH (11:25)
[2018-01-09] MEDS: FLUTICASONE NASAL SPRAY NAS SCH (11:29)
[2018-01-09] MEDS: AZITHROMYCIN INJ 500 MG in SODIUM CHLORIDE 0.9% 250 ML IV SCH (11:47)
[2018-01-09] MEDS: ATORVASTATIN 40 MG TABLET PO SCH (13:21)
[2018-01-09] MEDS: SODIUM CHLORIDE 0.9% 1,000 ML IV SCH (14:30)
--- NOTE | 2018-01-09 15:44 | PROVIDER PROGRESS NOTE ---
Subjective - Prog Note Date Prog Note Date: 01/09/18 - Subjective Pt reports feeling: Improved Subjective: pt report he already feels better, no fever or chill, nasal congestion is better. denies chest pain, headache, neck stiffness. Current Medications - Current Medications Current Medications: Active Medications Acetaminophen (Tylenol) 650 mg PO Q4HR PRN PRN Reason: Pain 1 to 4 Albuterol () 2.5 mg INH Q4HR PRN PRN Reason: Wheezing Last Admin: 01/09/18 10:51 Dose: 2.5 mg Aspirin (Maribeth) 325 mg PO DAILY [facility] Last Admin: 01/09/18 10:44 Dose: 325 mg Atorvastatin Calcium (Lipitor) 80 mg PO DAILY [facility] Last Admin: 01/09/18 13:21 Dose: 80 mg Carvedilol (Coreg) 3.125 mg PO DAILY [facility] Cetirizine HCl (Zyrtec) 5 mg PO DAILY [facility] Last Admin: 01/09/18 10:40 Dose: 5 mg Clopidogrel Bisulfate (Plavix) 75 mg PO DAILY [facility] Last Admin: 01/09/18 10:44 Dose: 75 mg Fluticasone Propionate (Flonase) 0 sprays CLARK DAILY [facility] Last Admin: 01/09/18 11:29 Dose: 1 sprays Folic Acid () 1 mg PO DAILY [facility] Azithromycin 500 mg/ Sodium (Chloride) 250 mls @ 250 mls/hr IV DAILY [facility] Last Infusion: 01/09/18 12:47 Dose: Infused Ceftriaxone Sodium 2 gm/ (Sodium Chloride) 100 mls @ 200 mls/hr IV DAILY [facility] Last Infusion: 01/09/18 11:37 Dose: Infused Sodium Chloride (Normal Saline 0.9%) 1,000 mls @ 85 mls/hr IV .[id number] [facility] Last Admin: 01/09/18 14:30 Dose: 85 mls/hr Ibuprofen (Motrin) 600 mg PO Q6HR PRN PRN Reason: Pain 1 to 4 Isosorbide Mononitrate (Imdur) 30 mg PO DAILY [facility] Losartan Potassium (Cozaar) 25 mg PO DAILY [facility] Last Admin: 01/09/18 11:25 Dose: 25 mg Ondansetron HCl (Zofran Inj) 4 mg IVP Q6HR PRN PRN Reason: Nausea / Vomiting Oseltamivir Phosphate (Tamiflu) 30 mg PO DAILY [facility] Last Admin: 01/09/18 11:25 Dose: 30 mg Oxycodone HCl (Roxicodone) 5 mg PO Q4HR PRN PRN Reason: Pain 5 to 7 Pantoprazole Sodium (Protonix) 40 mg PO QDAC [facility] Last Admin: 01/09/18 06:15 Dose: 40 mg Polyethylene Glycol (Miralax) 17 gm PO DAILY [facility] Last Admin: 01/09/18 11:06 Dose: Not Given Prochlorperazine Edisylate (Compazine Inj) 10 mg IVP Q6HR PRN PRN Reason: Nausea / Vomiting Promethazine HCl (Phenergan Inj) 25 mg IM Q6HR PRN PRN Reason: Nausea / Vomiting Saccharomyces Boulardii (Florastor) 250 mg PO BIDWM [facility] Last Admin: 01/09/18 10:39 Dose: 250 mg Sodium Chloride (Normal Saline Flush 0.9%) 10 ml IVP PRN PRN PRN Reason: NEEDED PER PROVIDER ORDERS Last Admin: 01/09/18 01:58 Dose: 10 ml Sodium Chloride (Normal Saline Flush 0.9%) 10 ml IVP 0100,0900,1700 [facility] Last Admin: 01/09/18 10:23 Dose: 10 ml Zolpidem Tartrate (Ambien) 5 mg PO QPM PRN PRN Reason: Insomnia Atorvastatin Calcium [Lipitor] 80 mg PO DAILY 02/02/13 Clopidogrel [Plavix] 75 mg PO DAILY 02/02/13 Fluticasone [Flonase] 1 sprays CLARK DAILY 02/02/13 Furosemide [Lasix] 30 mg PO DAILY 02/02/13 Losartan [Cozaar] 25 mg PO DAILY 02/02/13 Isosorbide Mononitrate [Isosorbide Mononitrate ER] 30 mg PO DAILY 03/29/14 Albuterol Sulfate [Proair Hfa Inhaler] 2 puffs INH Q4H PRN 01/09/18 Aspirin [[place] Aspirin EC] 81 mg PO DAILY 01/09/18 Azelastine HCl 2 spray CLARK BID PRN 01/09/18 Carvedilol [Coreg] 3.125 mg PO DAILY 01/09/18 Cholecalciferol [Vitamin D3] 5,000 unit PO DAILY 01/09/18 Cyclosporine [Restasis] 1 each EACHEYE BID 01/09/18 Escitalopram Oxalate [Lexapro] 5 mg PO DAILY 01/09/18 Esomeprazole Magnesium [Nexium 24Hr] 20 mg PO QDAC 01/09/18 Esomeprazole Magnesium [Nexium 24Hr] 40 mg PO QPM 01/09/18 Folic Acid 1.6 mg PO QPM 01/09/18 Folic Acid 2.4 mg PO DAILY 01/09/18 Nitroglycerin [Nitrostat] 0.4 mg SL Q5MIN PRN 01/09/18 Objective - Vital Signs/Intake & Output Reviewed Vital Signs: Yes Vital Signs: Vital Signs x48h Temp Pulse Pulse Resp BP Pulse Ox 01/09/18 13:47 36.5 C 59 L 16 113/57 L 98 01/09/18 13:23 36.9 C 01/09/18 10:51 65 16 01/09/18 08:36 36.9 C 61 16 111/56 L 97 Intake & Output: Intake & Output 01/06/18 01/07/18 01/08/18 01/09/18 23:59 23:59 23:59 23:59 Intake Total 1300 1215 Balance 1300 1215 - Objective General Appearance: positive: No acute distress, Alert. negative: Lethargic Eyes Bilateral: positive: Normal inspection, PERRL, No lid inflammation, Conj unctivae nml ENT: positive: ENT inspection nml, Pharynx nml, No signs of dehydration. negative: Purulent nasal drainage, Pharyngeal erythema, Oral lesions, Dry mucous membranes Neck: positive: Nml inspection, Thyroid nml, No JVD, Trachea midline. negative: Thyromegaly, Lymphadenopathy (R), Lymphadenopathy (L), Stiff neck, Swelling/bruising, Tracheal deviation Respiratory: positive: Chest non-tender, No respiratory distress, Rhonchi. negative: Wheezes, Rales Cardiovascular: positive: Regular rate & rhythm, No murmur, No gallop. negative: Irregularly irregular, Extrasystoles, Tachycardia, Bradycardia, JVD present, Systolic murmur, Diastolic murmur Peripheral Pulses: 2+ Radial (R), 2+ Radial (L), 2+ Dorsalis pedis (R), 2+ Dorsalis pedis (L) Abdomen: positive: Non-tender, No organomegaly, Nml bowel sounds, No distention. negative: Tenderness, Guarding, Rebound Back: positive: Nml inspection. negative: CVA tenderness (R), CVA tenderness (L) Skin: positive: Color nml, No rash, Warm, Dry. negative: Cyanosis, Diaphoresis, Pallor Extremities: positive: Non-tender, Full ROM, Nml appearance. negative: Calf tenderness, Joint swelling, Mitzy's sign/cords Neurologic/Psychiatric: positive: Oriented x3, Motor nml, Sensation nml, Mood/affect nml. negative: Weakness, Sensory loss, Facial droop, Slurred/abnml speech, Depressed mood/affect - Lab Results Fish Bones: 01/09/18 06:25 01/09/18 06:25 Other Labs: Lab Results x24hrs 01/09/18 01/09/18 01/09/18 Range/Units 06:25 06:25 06:25 WBC (4.8-10.8) x10^3/uL RBC (4.70-6.10) 10^6/uL Hgb (14.0-18.0) g/dL Hct (42.0-52.0) % MCV (80.0-94.0) fL MCH (27.0-31.0) pg MCHC (32.0-36.0) g/dL RDW (12.0-15.0) % Plt Count (130-450) 10^3/uL MPV (7.4-11.4) fL Neut # (Auto) (1.5-6.6) 10^3/uL Lymph # (Auto) (1.5-3.5) 10^3/uL Weber # (Auto) (0.0-1.0) 10^3/uL Eos # (Auto) (0.0-0.7) 10^3/uL Baso # (Auto) (0.0-0.1) 10^3/uL Absolute Nucleated RBC x10^3/uL Nucleated RBC % /100WBC VBG pH 7.336 (7.31-7.41) Ionized Calcium 1.14 L YES (1.15-1.33) mmol/L Sodium 134 L (135-145) mmol/L Potassium 3.6 (3.5-5.0) mmol/L Chloride 103 (101-111) mmol/L Carbon Dioxide 23 (21-32) mmol/L Anion Gap 8.0 (6-13) BUN 39 H (6-20) mg/dL Creatinine 2.6 H (0.6-1.2) mg/dL Estimated GFR (MDRD) 24 L (>89) Glucose 102 H (70-100) mg/dL Lactic Acid 1.1 (0.5-2.2) mmol/L Calcium 8.3 L (8.5-10.3) mg/dL Total Bilirubin 1.0 (0.2-1.0) mg/dL AST 34 (10-42) IU/L ALT 22 (10-60) IU/L Alkaline Phosphatase 63 (42-121) IU/L Total Protein 5.4 L (6.7-8.2) g/dL Albumin 2.9 L (3.2-5.5) g/dL Globulin 2.5 (2.1-4.2) g/dL Albumin/Globulin Ratio 1.2 (1.0-2.2) Lipase (22-51) U/L Influenza A (Rapid) (Negative) Influenza B (Rapid) (Negative) 01/09/18 01/08/18 01/08/18 Range/Units 06:25 21:20 21:20 WBC 7.7 (4.8-10.8) x10^3/uL RBC 3.76 L (4.70-6.10) 10^6/uL Hgb 12.6 L (14.0-18.0) g/dL Hct 36.5 L (42.0-52.0) % MCV 97.1 H (80.0-94.0) fL MCH 33.5 H (27.0-31.0) pg MCHC 34.5 (32.0-36.0) g/dL RDW 14.5 (12.0-15.0) % Plt Count 92 L (130-450) 10^3/uL MPV 7.6 (7.4-11.4) fL Neut # (Auto) 6.0 (1.5-6.6) 10^3/uL Lymph # (Auto) 1.0 L (1.5-3.5) 10^3/uL Weber # (Auto) 0.7 (0.0-1.0) 10^3/uL Eos # (Auto) 0.0 (0.0-0.7) 10^3/uL Baso # (Auto) 0.0 (0.0-0.1) 10^3/uL Absolute Nucleated RBC 0.00 x10^3/uL Nucleated RBC % 0.0 /100WBC VBG pH (7.31-7.41) Ionized Calcium (1.15-1.33) mmol/L Sodium 134 L (135-145) mmol/L Potassium 3.8 (3.5-5.0) mmol/L Chloride 100 L (101-111) mmol/L Carbon Dioxide 25 (21-32) mmol/L Anion Gap 9.0 (6-13) BUN 34 H (6-20) mg/dL Creatinine 2.4 H (0.6-1.2) mg/dL Estimated GFR (MDRD) 26 L (>89) Glucose 110 H (70-100) mg/dL Lactic Acid 1.2 (0.5-2.2) mmol/L Calcium 8.9 (8.5-10.3) mg/dL Total Bilirubin 1.1 H (0.2-1.0) mg/dL AST 37 (10-42) IU/L ALT 26 (10-60) IU/L Alkaline Phosphatase 78 (42-121) IU/L Total Protein 6.4 L (6.7-8.2) g/dL Albumin 3.5 (3.2-5.5) g/dL Globulin 2.9 (2.1-4.2) g/dL Albumin/Globulin Ratio 1.2 (1.0-2.2) Lipase 32 (22-51) U/L Influenza A (Rapid) (Negative) Influenza B (Rapid) (Negative) 01/08/18 01/08/18 Range/Units 21:20 19:25 WBC 6.0 (4.8-10.8) x10^3/uL RBC 4.07 L (4.70-6.10) 10^6/uL Hgb 13.6 L (14.0-18.0) g/dL Hct 38.8 L (42.0-52.0) % MCV 95.4 H (80.0-94.0) fL MCH 33.4 H (27.0-31.0) pg MCHC 35.0 (32.0-36.0) g/dL RDW 14.6 (12.0-15.0) % Plt Count 106 L (130-450) 10^3/uL MPV 7.5 (7.4-11.4) fL Neut # (Auto) 4.8 (1.5-6.6) 10^3/uL Lymph # (Auto) 0.6 L (1.5-3.5) 10^3/uL Weber # (Auto) 0.6 (0.0-1.0) 10^3/uL Eos # (Auto) 0.0 (0.0-0.7) 10^3/uL Baso # (Auto) 0.0 (0.0-0.1) 10^3/uL Absolute Nucleated RBC 0.00 x10^3/uL Nucleated RBC % 0.1 /100WBC VBG pH (7.31-7.41) Ionized Calcium (1.15-1.33) mmol/L Sodium (135-145) mmol/L Potassium (3.5-5.0) mmol/L Chloride (101-111) mmol/L Carbon Dioxide (21-32) mmol/L Anion Gap (6-13) BUN (6-20) mg/dL Creatinine (0.6-1.2) mg/dL Estimated GFR (MDRD) (>89) Glucose (70-100) mg/dL Lactic Acid (0.5-2.2) mmol/L Calcium (8.5-10.3) mg/dL Total Bilirubin (0.2-1.0) mg/dL AST (10-42) IU/L ALT (10-60) IU/L Alkaline Phosphatase (42-121) IU/L Total Protein (6.7-8.2) g/dL Albumin (3.2-5.5) g/dL Globulin (2.1-4.2) g/dL Albumin/Globulin Ratio (1.0-2.2) Lipase (22-51) U/L Influenza A (Rapid) POSITIVE H (Negative) Influenza B (Rapid) Negative (Negative) ABX Reporting Has patient been on IV antibiotics over the past 48 hours?: Yes Assessment/Plan - Problem List (1) CAP (community acquired pneumonia) Impression: Conclusion/Plan: 01/09 continue IV fluids, IV antibiotics with ceftriaxone and azithromycin no more fever, follow up blood culture Patient presented to the emergency department with generalized weakness and fever. The patient has also been having increasing cough and shortness of breath over the course of the last day. The patient was found to have influenza A positive on his flu swab and chest x-ray revealed a by basilar pneumonia. The patient was hypoxic on presentation down to 90% on room air. The patient's pneumonia severity index score is 136 which puts him at a risk class V, 27-29.2% mortality. Based on the score hospitalization is recommended. Plan: Admit patient to medical escobar IV fluids IV antibiotics with ceftriaxone and azithromycin Tylenol for fever Supplemental oxygen Monitor closely Qualifiers: Laterality: unspecified laterality Qualified Code(s): J18.9 - Pneumonia, unspecified organism (2) Influenza A Conclusion/Plan: continue IV fluids and supportive care Tamiflu adjusted for renal dosing Patient presented to the emergency department with generalized weakness and fever. Over the last 3 days the patient has been having symptoms of weakness, body aches, fevers, chills, nausea, decreased appetite and today developed cough and shortness of breath. The patient's flu swab was positive for influenza A on presentation to the ER. The patient appears to have had influenza for the last 2 days and now has developed pneumonia on his chest x-ray. Plan: IV fluids and supportive care Tamiflu adjusted for renal dosing Tylenol for fever (3) Acute renal failure superimposed on stage 3 chronic kidney disease Conclusion/Plan: IV fluids Avoid nephrotoxic agents continue lab monitor Patient has a history of chronic kidney disease stage III. Today the patient's creatinine is elevated 2.4 and BUN is elevated to 34. Patient appears to have acute on chronic renal failure likely secondary to dehydration from ongoing infection. Plan: IV fluids Avoid nephrotoxic agents Monitor creatinine (4) Hyponatremia Conclusion/Plan: Patient has mild hyponatremia on presentation with a sodium of 134. Given atul ent's ongoing infection he likely has dehydration. Patient appears to have hypovolemic hyponatremia. Patient will be given IV fluids and we will continue to monitor his sodium. (5) Hypertension Conclusion/Plan: The patient has a history of hypertension and on presentation to the emergency department the patient's blood pressure is controlled. We are concerned that the patient could become septic and become hypotensive. We will be careful in giving the patient his home antihypertensive medications. We will monitor the blood pressure closely and give him IV fluids. We will hold antihypertensive medications if the patient's blood pressure does drop. Qualifiers: Hypertension type: essential hypertension Qualified Code(s): I10 - Essential (primary) hypertension (6) History of coronary artery disease Conclusion/Plan: stable, no chest pain. Patient has a history of coronary artery disease with 8 stents and 2 coronary artery bypass grafts. The patient is currently on optimal treatment with aspirin, Lipitor, Coreg and Plavix. He is not having any chest pain and his shortness of breath appears to be secondary to his pneumonia. Currently the p atient is stable. We will get an echocardiogram since it has been a number of years since his last echo. (7) HONG on CPAP Conclusion/Plan: Patient has a history of obstructive sleep apnea. Patient will be continued on his home CPAP while he is hospitalized. (8) Hyperlipidemia Conclusion/Plan: The patient has a history of hyperlipidemia and is on Lipitor at home. We will continue the patient's home dose of Lipitor while he is hospitalized. Qualifiers: Laterality: unspecified laterality Qualified Code(s): J18.9 - Pneumonia, unspecified organism
[2018-01-09] MEDS: BENZOCAINE/MENTHOL LOZENGE MM PRN ×2 (18:43→21:56)
[2018-01-09] MEDS ORDERED: ATORVASTATIN 40 MG TABLET PO SCH (21:00)
[2018-01-09] MEDS ORDERED: CLOBETASOL PROPIONATE TOP SCH (21:00)
[2018-01-09] MEDS ORDERED: EMOLL TOP SCH (21:00)
[2018-01-10] MEDS: SODIUM CHLORIDE FLUSH 0.9% 10 ML SYRINGE IVP SCH ×3 (01:00→15:34)
[2018-01-10] MEDS: SODIUM CHLORIDE 0.9% 1,000 ML IV SCH ×2 (01:10→13:24)
[2018-01-10] MEDS: IBUPROFEN 600 MG TABLET PO PRN ×2 (01:15→21:22)
[2018-01-10 06:27] LABS: BASOPHILS % (AUTO) 0.2 %; EOSINOPHILS # (AUTO) 0.1 10^3/uL (0.0-0.7); HGB - HEMOGLOBIN 11.6 g/dL (14.0-18.0); LYMPHOCYTES # (AUTO) 1.3 10^3/uL (1.5-3.5); LYMPHOCYTES % (AUTO) 17.8 %; MEAN CORPUSCULAR HEMOGLOBIN 33.6 pg (27.0-31.0); MEAN CORPUSCULAR HGB CONC 34.6 g/dL (32.0-36.0); MEAN CORPUSCULAR VOLUME 97.2 fL (80.0-94.0); MEAN PLATELET VOLUME 7.6 fL (7.4-11.4); MONOCYTES # (AUTO) 0.5 10^3/uL (0.0-1.0); NEUTROPHILS # (AUTO) 5.4 10^3/uL (1.5-6.6); PLT - PLATELET COUNT 87 10^3/uL (130-450); RED BLOOD COUNT 3.45 10^6/uL (4.70-6.10); RED CELL DISTRIBUTION WIDTH 14.6 % (12.0-15.0); WHITE BLOOD COUNT 7.3 x10^3/uL (4.8-10.8)
[2018-01-10 06:44] LABS: ALBUMIN 2.7 g/dL (3.2-5.5); ALBUMIN/GLOBULIN RATIO 1.2 (1.0-2.2); ALKALINE PHOSPHATASE 62 IU/L (42-121); ALT ALANINE AMINOTRANSFERASE 21 IU/L (10-60); AST ASPARTATE AMINOTRANSFERASE 28 IU/L (10-42); BILIRUBIN,TOTAL 0.5 mg/dL (0.2-1.0); BUN - BLOOD UREA NITROGEN 36 mg/dL (6-20); CALCIUM 8.5 mg/dL (8.5-10.3); CARBON DIOXIDE - CO2 23 mmol/L (21-32); CHLORIDE 106 mmol/L (101-111); CREATININE 2.3 mg/dL (0.6-1.2); GFR - MDRD 27 (>89); GLUCOSE 105 mg/dL (70-100); SODIUM 137 mmol/L (135-145)
[2018-01-10] MEDS: PANTOPRAZOLE 40 MG TABLET PO SCH (06:55)
[2018-01-10] MEDS: ASPIRIN 325 MG TABLET PO SCH (08:44)
[2018-01-10] MEDS: FOLIC ACID 1 MG TABLET PO SCH (08:44)
[2018-01-10] MEDS: CETIRIZINE 10 MG TABLET PO SCH (08:44)
[2018-01-10] MEDS: ATORVASTATIN 40 MG TABLET PO SCH (08:45)
[2018-01-10] MEDS: CLOPIDOGREL 75 MG TABLET PO SCH (08:45)
[2018-01-10] MEDS: ISOSORBIDE MONONITRATE ER 30 MG TABLET PO SCH (08:46)
[2018-01-10] MEDS: LOSARTAN 50 MG TABLET PO SCH (08:46)
[2018-01-10] MEDS: CARVEDILOL 3.125 MG TABLET PO SCH (08:46)
[2018-01-10] MEDS: OSELTAMIVIR 30 MG CAPSULE PO SCH (08:47)
[2018-01-10] MEDS: FLUTICASONE NASAL SPRAY NAS SCH (08:48)
[2018-01-10] MEDS: POLYETHYLENE GLYCOL 3350 17 GM PACKET PO SCH (08:50)
[2018-01-10] MEDS: cefTRIAXone 2 GM in SODIUM CHLORIDE 0.9% MINIBAG 100 ML IV SCH (08:50)
[2018-01-10] MEDS: SACCHAROMYCES BOULARDII 250 MG CAPSULE PO SCH (08:50)
[2018-01-10] MEDS: guaiFENesin/CODEINE 5 ML UDC PO PRN ×2 (09:50→16:06)
[2018-01-10] MEDS: AZITHROMYCIN INJ 500 MG in SODIUM CHLORIDE 0.9% 250 ML IV SCH (10:14)
--- NOTE | 2018-01-10 11:32 | PROVIDER PROGRESS NOTE ---
Subjective - Prog Note Date Prog Note Date: 01/10/18 - Subjective Pt reports feeling: Improved Subjective: pt report he feel better for breathing, but still complain of cough, and feel weakness. Pt denies fever, chill, chest pain, SOB Current Medications - Current Medications Current Medications: Active Medications Acetaminophen (Tylenol) 650 mg PO Q4HR PRN PRN Reason: Pain 1 to 4 Albuterol () 2.5 mg INH Q4HR PRN PRN Reason: Wheezing Last Admin: 01/09/18 10:51 Dose: 2.5 mg Aspirin (Maribeth) 325 mg PO DAILY [facility] Last Admin: 01/10/18 08:44 Dose: 325 mg Atorvastatin Calcium (Lipitor) 80 mg PO DAILY [facility] Last Admin: 01/10/18 08:45 Dose: 80 mg Carvedilol (Coreg) 3.125 mg PO DAILY [facility] Last Admin: 01/10/18 08:46 Dose: 3.125 mg Cetirizine HCl (Zyrtec) 5 mg PO DAILY [facility] Last Admin: 01/10/18 08:44 Dose: 5 mg Clopidogrel Bisulfate (Plavix) 75 mg PO DAILY [facility] Last Admin: 01/10/18 08:45 Dose: 75 mg Fluticasone Propionate (Flonase) 0 sprays CLARK DAILY [facility] Last Admin: 01/10/18 08:48 Dose: 1 sprays Folic Acid () 1 mg PO DAILY [facility] Last Admin: 01/10/18 08:44 Dose: 1 mg Guaifenesin/Codeine Phosphate (Robitussin Ac) 5 ml PO Q6HR PRN PRN Reason: Cough Last Admin: 01/10/18 09:50 Dose: 5 ml Azithromycin 500 mg/ Sodium (Chloride) 250 mls @ 250 mls/hr IV DAILY [facility] Last Infusion: 01/10/18 11:17 Dose: Infused Ceftriaxone Sodium 2 gm/ (Sodium Chloride) 100 mls @ 200 mls/hr IV DAILY [facility] Last Infusion: 01/10/18 09:52 Dose: Infused Sodium Chloride (Normal Saline 0.9%) 1,000 mls @ 85 mls/hr IV .[id number] [facility] Last Admin: 01/10/18 01:10 Dose: 85 mls/hr Ibuprofen (Motrin) 600 mg PO Q6HR PRN PRN Reason: Pain 1 to 4 Last Admin: 01/10/18 01:15 Dose: 600 mg Isosorbide Mononitrate (Imdur) 30 mg PO DAILY [facility] Last Admin: 01/10/18 08:46 Dose: 30 mg Losartan Potassium (Cozaar) 25 mg PO DAILY [facility] Last Admin: 01/10/18 08:46 Dose: 25 mg Ondansetron HCl (Zofran Inj) 4 mg IVP Q6HR PRN PRN Reason: Nausea / Vomiting Oseltamivir Phosphate (Tamiflu) 30 mg PO DAILY [facility] Last Admin: 01/10/18 08:47 Dose: 30 mg Oxycodone HCl (Roxicodone) 5 mg PO Q4HR PRN PRN Reason: Pain 5 to 7 Pantoprazole Sodium (Protonix) 40 mg PO QDAC [facility] Last Admin: 01/10/18 06:55 Dose: 40 mg Polyethylene Glycol (Miralax) 17 gm PO DAILY [facility] Last Admin: 01/10/18 08:50 Dose: Not Given Prochlorperazine Edisylate (Compazine Inj) 10 mg IVP Q6HR PRN PRN Reason: Nausea / Vomiting Promethazine HCl (Phenergan Inj) 25 mg IM Q6HR PRN PRN Reason: Nausea / Vomiting Sodium Chloride (Normal Saline Flush 0.9%) 10 ml IVP PRN PRN PRN Reason: NEEDED PER PROVIDER ORDERS Last Admin: 01/09/18 01:58 Dose: 10 ml Sodium Chloride (Normal Saline Flush 0.9%) 10 ml IVP 0100,0900,1700 [facility] Last Admin: 01/10/18 10:18 Dose: 10 ml Throat Lozenges (Cepacol) 1 lozenge MM Q2HR PRN PRN Reason: Throat pain Last Admin: 01/09/18 21:56 Dose: 1 lozenge Atorvastatin Calcium [Lipitor] 80 mg PO DAILY 02/02/13 Clopidogrel [Plavix] 75 mg PO DAILY 02/02/13 Fluticasone [Flonase] 1 sprays CLARK DAILY 02/02/13 Furosemide [Lasix] 30 mg PO DAILY 02/02/13 Losartan [Cozaar] 25 mg PO DAILY 02/02/13 Isosorbide Mononitrate [Isosorbide Mononitrate ER] 30 mg PO DAILY 03/29/14 Albuterol Sulfate [Proair Hfa Inhaler] 2 puffs INH Q4H PRN 01/09/18 Aspirin [Reno Aspirin EC] 81 mg PO DAILY 01/09/18 Azelastine HCl 2 spray CLARK BID PRN 01/09/18 Carvedilol [Coreg] 3.125 mg PO DAILY 01/09/18 Cholecalciferol [Vitamin D3] 5,000 unit PO DAILY 01/09/18 Cyclosporine [Restasis] 1 each EACHEYE BID 01/09/18 Escitalopram Oxalate [Lexapro] 5 mg PO DAILY 01/09/18 Esomeprazole Magnesium [Nexium 24Hr] 20 mg PO QDAC 01/09/18 Esomeprazole Magnesium [Nexium 24Hr] 40 mg PO QPM 01/09/18 Folic Acid 1.6 mg PO QPM 01/09/18 Folic Acid 2.4 mg PO DAILY 01/09/18 Nitroglycerin [Nitrostat] 0.4 mg SL Q5MIN PRN 01/09/18 Objective - Vital Signs/Intake & Output Reviewed Vital Signs: Yes Vital Signs: Vital Signs x48h Temp Pulse Resp BP Pulse Ox 01/10/18 07:54 36.6 C 60 16 118/66 94 Intake & Output: Intake & Output 01/07/18 01/08/18 01/09/18 01/10/18 23:59 23:59 23:59 23:59 Intake Total 1300 2551 1526.667 Output Total 650 675 Balance 1300 1901 851.667 - Objective General Appearance: positive: No acute distress, Alert. negative: Lethargic Eyes Bilateral: positive: Normal inspection, PERRL, No lid inflammation, Conjunctivae nml ENT: positive: ENT inspection nml, Pharynx nml, No signs of dehydration. negative: Purulent nasal drainage, Pharyngeal erythema, Oral lesions Neck: positive: Nml inspection, Thyroid nml, No JVD, Trachea midline. negative: Thyromegaly, Lymphadenopathy (R), Lymphadenopathy (L), Stiff neck, Swelling/bruising, Tracheal deviation Respiratory: positive: Chest non-tender, No respiratory distress. negative: Wheezes, Rales, Rhonchi Cardiovascular: positive: Regular rate & rhythm, No murmur, No gallop. negative: Irregularly irregular, Extrasystoles, Tachycardia, Bradycardia, JVD present, Systolic murmur, Diastolic murmur Peripheral Pulses: 2+ Radial (R), 2+ Radial (L), 2+ Dorsalis pedis (R), 2+ D orsalis pedis (L) Abdomen: positive: Non-tender, No organomegaly, Nml bowel sounds, No distention. negative: Tenderness, Guarding, Rebound Back: positive: Nml inspection. negative: CVA tenderness (R), CVA tenderness (L) Skin: positive: Color nml, No rash, Warm, Dry. negative: Cyanosis, Diaphoresis, Pallor Extremities: positive: Non-tender, Full ROM, Nml appearance. negative: Calf tenderness, Joint swelling, Mitzy's sign/cords Neurologic/Psychiatric: positive: Oriented x3, Motor nml, Sensation nml, Mood/affect nml. negative: Weakness, Sensory loss, Facial droop, Slurred/abnml speech, Depressed mood/affect - Lab Results Fish Bones: 01/10/18 06:07 01/10/18 06:07 Other Labs: Lab Results x24hrs 01/10/18 01/10/18 Range/Units 06:07 06:07 WBC 7.3 (4.8-10.8) x10^3/uL RBC 3.45 L (4.70-6.10) 10^6/uL Hgb 11.6 L (14.0-18.0) g/dL Hct 33.5 L (42.0-52.0) % MCV 97.2 H (80.0-94.0) fL MCH 33.6 H (27.0-31.0) pg MCHC 34.6 (32.0-36.0) g/dL RDW 14.6 (12.0-15.0) % Plt Count 87 L (130-450) 10^3/uL MPV 7.6 (7.4-11.4) fL Neut # (Auto) 5.4 (1.5-6.6) 10^3/uL Lymph # (Auto) 1.3 L (1.5-3.5) 10^3/uL Pitt # (Auto) 0.5 (0.0-1.0) 10^3/uL Eos # (Auto) 0.1 (0.0-0.7) 10^3/uL Baso # (Auto) 0.0 (0.0-0.1) 10^3/uL Absolute Nucleated RBC 0.01 x10^3/uL Nucleated RBC % 0.1 /100WBC Sodium 137 (135-145) mmol/L Potassium 3.7 (3.5-5.0) mmol/L Chloride 106 (101-111) mmol/L Carbon Dioxide 23 (21-32) mmol/L Anion Gap 8.0 (6-13) BUN 36 H (6-20) mg/dL Creatinine 2.3 H (0.6-1.2) mg/dL Estimated GFR (MDRD) 27 L (>89) Glucose 105 H (70-100) mg/dL Calcium 8.5 (8.5-10.3) mg/dL Ionized Calcium NO Total Bilirubin 0.5 (0.2-1.0) mg/dL AST 28 (10-42) IU/L ALT 21 (10-60) IU/L Alkaline Phosphatase 62 (42-121) IU/L Total Protein 5.0 L (6.7-8.2) g/dL Albumin 2.7 L (3.2-5.5) g/dL Globulin 2.3 (2.1-4.2) g/dL Albumin/Globulin Ratio 1.2 (1.0-2.2) ABX Reporting Has patient been on IV antibiotics over the past 48 hours?: Yes Assessment/Plan - Problem List (1) CAP (community acquired pneumonia) Impression: Conclusion/Plan: 01/10, pt feel better, but continue to have cough, and feel weakness add Robutassin AC for cough continue to antibiotics rocephin and azithromycin PT for weakness 01/09 continue IV fluids, IV antibiotics with ceftriaxone and azithromycin no more fever, follow up blood culture Patient presented to the emergency department with generalized weakness and fever. The patient has also been having increasing cough and shortness of breath over the course of the last day. The patient was found to have influenza A positive on his flu swab and chest x-ray revealed a by basilar pneumonia. The patient was hypoxic on presentation down to 90% on room air. The patient's pneumonia severity index score is 136 which puts him at a risk class V, 27-29.2% mortality. Based on the score hospitalization is recommended. Plan: Admit patient to medical escobar IV fluids IV antibiotics with ceftriaxone and azithromycin Tylenol for fever Supplemental oxygen Monitor closely Qualifiers: Laterality: unspecified laterality Qualified Code(s): J18.9 - Pneumonia, unspecified organism (2) Influenza A Conclusion/Plan: 01/09 pt feel better, continue Tamiflu continue IV fluids and supportive care Tamiflu adjusted for renal dosing Patient presented to the emergency department with generalized weakness and fever. Over the last 3 days the patient has been having symptoms of weakness, body aches, fevers, chills, nausea, decreased appetite and today developed cough and shortness of breath. The patient's flu swab was positive for influenza A on presentation to the ER. The patient appears to have had influenza for the last 2 days and now has developed pneumonia on his chest x-ray. Plan: IV fluids and supportive care Tamiflu adjusted for renal dosing Tylenol for fever (3) Acute renal failure superimposed on stage 3 chronic kidney disease Conclusion/Plan: 01/09, improved, as pt's baseline continue gently IVF, daily lab monitor IV fluids Avoid nephrotoxic agents continue lab monitor Patient has a history of chronic kidney disease stage III. Today the patient's creatinine is elevated 2.4 and BUN is elevated to 34. Patient appears to have acute on chronic renal failure likely secondary to dehydration from ongoing infection. Plan: IV fluids Avoid nephrotoxic agents Monitor creatinine (4) Hyponatremia Conclusion/Plan: 01/09 resolved Patient has mild hyponatremia on presentation with a sodium of 134. Given patient's ongoing infection he likely has dehydration. Patient appears to have hypovolemic hyponatremia. Patient will be given IV fluids and we will continue to monitor his sodium. (5) Hypertension Conclusion/Plan: The patient has a history of hypertension and on presentation to the emergency department the patient's blood pressure is controlled. We are concerned that the patient could become septic and become hypotensive. We will be careful in giving the patient his home antihypertensive medications. We will monitor the blood pressure closely and give him IV fluids. We will hold antihypertensive me dications if the patient's blood pressure does drop. Qualifiers: Hypertension type: essential hypertension Qualified Code(s): I10 - Essential (primary) hypertension (6) History of coronary artery disease Conclusion/Plan: stable, no chest pain. Patient has a history of coronary artery disease with 8 stents and 2 coronary artery bypass grafts. The patient is currently on optimal treatment with aspi rin, Lipitor, Coreg and Plavix. He is not having any chest pain and his shortness of breath appears to be secondary to his pneumonia. Currently the patient is stable. We will get an echocardiogram since it has been a number of years since his last echo. (7) HONG on CPAP Conclusion/Plan: Patient has a history of obstructive sleep apnea. Patient will be continued on his home CPAP while he is hospitalized. (8) Hyperlipidemia Conclusion/Plan: The patient has a history of hyperlipidemia and is on Lipitor at home. We will continue the patient's home dose of Lipitor while he is hospitalized. (9) weakness PT evaluation and treatment for pt Qualifiers: Laterality: unspecified laterality Qualified Code(s): J18.9 - Pneumonia, unspecified organism
[2018-01-10] MEDS: BENZOCAINE/MENTHOL LOZENGE MM PRN (16:06)
[2018-01-10] MEDS: RESTASIS EACHEYE SCH (21:22)
[2018-01-11] MEDS: SODIUM CHLORIDE 0.9% 1,000 ML IV SCH (00:15)
[2018-01-11] MEDS: SODIUM CHLORIDE FLUSH 0.9% 10 ML SYRINGE IVP SCH (00:16)
[2018-01-11] MEDS: PANTOPRAZOLE 40 MG TABLET PO SCH (06:06)
[2018-01-11 07:18] LABS: BASOPHILS % (AUTO) 0.3 %; EOSINOPHILS # (AUTO) 0.3 10^3/uL (0.0-0.7); EOSINOPHILS % (AUTO) 4.7 %; HGB - HEMOGLOBIN 12.1 g/dL (14.0-18.0); LYMPHOCYTES # (AUTO) 1.2 10^3/uL (1.5-3.5); LYMPHOCYTES % (AUTO) 21.3 %; MEAN CORPUSCULAR HEMOGLOBIN 33.8 pg (27.0-31.0); MEAN CORPUSCULAR HGB CONC 34.9 g/dL (32.0-36.0); MEAN CORPUSCULAR VOLUME 96.8 fL (80.0-94.0); MEAN PLATELET VOLUME 8.3 fL (7.4-11.4); MONOCYTES # (AUTO) 0.4 10^3/uL (0.0-1.0); MONOCYTES % (AUTO) 6.9 %; NEUTROPHILS # (AUTO) 3.9 10^3/uL (1.5-6.6); NEUTROPHILS % (AUTO) 66.8 %; PLT - PLATELET COUNT 91 10^3/uL (130-450); RED BLOOD COUNT 3.57 10^6/uL (4.70-6.10); RED CELL DISTRIBUTION WIDTH 14.8 % (12.0-15.0); WHITE BLOOD COUNT 5.9 x10^3/uL (4.8-10.8)
[2018-01-11 07:31] LABS: ALBUMIN 2.8 g/dL (3.2-5.5); ALKALINE PHOSPHATASE 82 IU/L (42-121); ALT ALANINE AMINOTRANSFERASE 21 IU/L (10-60); AST ASPARTATE AMINOTRANSFERASE 25 IU/L (10-42); BILIRUBIN,TOTAL 0.6 mg/dL (0.2-1.0); BUN - BLOOD UREA NITROGEN 34 mg/dL (6-20); CALCIUM 8.9 mg/dL (8.5-10.3); CARBON DIOXIDE - CO2 21 mmol/L (21-32); CHLORIDE 112 mmol/L (101-111); GFR - MDRD 32 (>89); GLUCOSE 93 mg/dL (70-100); SODIUM 139 mmol/L (135-145); TOTAL PROTEIN 5.6 g/dL (6.7-8.2)
[2018-01-11 08:23] VITALS: BP 144/70
[2018-01-11] MEDS: OSELTAMIVIR 30 MG CAPSULE PO SCH (09:26)
[2018-01-11] MEDS: ATORVASTATIN 40 MG TABLET PO SCH (09:27)
[2018-01-11] MEDS: CETIRIZINE 10 MG TABLET PO SCH (09:27)
[2018-01-11] MEDS: CARVEDILOL 3.125 MG TABLET PO SCH (09:28)
[2018-01-11] MEDS: CLOPIDOGREL 75 MG TABLET PO SCH (09:29)
[2018-01-11] MEDS: ISOSORBIDE MONONITRATE ER 30 MG TABLET PO SCH (09:29)
[2018-01-11] MEDS: FOLIC ACID 1 MG TABLET PO SCH (09:29)
[2018-01-11] MEDS: ASPIRIN 325 MG TABLET PO SCH (09:30)
[2018-01-11] MEDS: LOSARTAN 50 MG TABLET PO SCH (09:30)
[2018-01-11] MEDS: FLUTICASONE NASAL SPRAY NAS SCH (09:31)
[2018-01-11] MEDS: RESTASIS EACHEYE SCH (09:32)
[2018-01-11] MEDS: POLYETHYLENE GLYCOL 3350 17 GM PACKET PO SCH (09:33)
[2018-01-11] MEDS: cefTRIAXone 2 GM in SODIUM CHLORIDE 0.9% MINIBAG 100 ML IV SCH (09:33)
--- NOTE | 2018-01-11 10:26 | Discharge Plan ---
Discharge Plan Disposition: Home Health Service Condition: Poor Prescriptions: Cephalexin [Keflex] 500 mg PO BID #12 capsule guaiFENesin [Mucinex] 600 mg PO BID PRN #14 tablet PRN Reason: Cough Oseltamivir [Tamiflu] 30 mg PO DAILY #7 capsule Diet: Regular Activity Restrictions: Activity as Tolerated Shower Restrictions: No (fall precaution) Instruction Topics: Oseltamivir capsules, Cephalexin tablets or capsules, Pneumonia, Flu Additional Instructions or Follow Up instructions: You may follow up your PCP in one week. You were found to have influenza A, and Pneumonia in hospital. You was treated with anti-virus and antibiotics. Pt are prescribed this two meds to home. Also Home PT will follow up to your home to help you. Should your symptoms return or worsen, your may present ER or call 911 for help. Follow-Up Care: Home Health - PT No Smoking: If you smoke, Please STOP! Call for help. Follow-up with: Denice Carty MD [Primary Care Provider] -
[2018-01-11] MEDS: AZITHROMYCIN INJ 500 MG in SODIUM CHLORIDE 0.9% 250 ML IV SCH (10:28)
[2018-01-11] MEDS ORDERED: cephALEXin 250 MG CAPSULE PO SCH ×2 (11:00)
--- NOTE | 2018-01-11 12:56 | DISCHARGE SUMMARY ---
Discharge Summary Discharge Date: 01/11/18 Discharging Provider: IVY Primary Care Provider: Denice Upton Condition at Discharge: Poor Discharge Disposition: Home Health Service Discharge Facility Name: home - DIAGNOSES Admission Diagnoses: (1) CAP (community acquired pneumonia) (2) Influenza A (3) Acute renal failure superimposed on stage 3 chronic kidney disease (4) Hyponatremia (5) Hypertension (6) History of coronary artery disease (7) HONG on CPAP (8) Hyperlipidemia Discharge Diagnoses with Status of Each Condition: (1) CAP (community acquired pneumonia) pt's WBC is normal, 95% sats on room air, no fever or chill. pt is prescribe antibiotics to finish the course. (2) Influenza A after treatment, pt is no nasal congestion, feel much better and request to be d/c home today. tamiflu is prescribe to pt to home to finish the course. (3) Acute renal failure superimposed on stage 3 chronic kidney disease improved as the pt's baseline, continue PCP management (4) Hyponatremia resolved (5) Hypertension stable, continue PCP management (6) History of coronary artery disease stable, continue PCP management (7) HONG on CPAP stable (8) Hyperlipidemia stable (9) weakness PT/OT evaluation and treatment pt, and recommendation of home PT to pt. - HPI History of Present Illness: refer from Dr. Luna's HPI for pt as the following: Patient is an 82-year-old gentleman with a past medical history significant for coronary artery disease status post 8 stents and CABG x2, obstructive sleep apnea on CPAP, mitral regurgitation status post clip repair, hypertension, hyperlipidemia, chronic kidney disease stage III and hiatal hernia repair who presented to the emergency department with a chief complaint of weakness and fever. The patient states that he was in his normal state of health when 2 days ago in the afternoon he was on the phone and then all of a sudden started to fe el ill. He states that it started with a runny nose and body aches and then he began to have chills and had the hardest time getting warm again. He states he became extremely weak and could barely get up off the couch. He states that later in the day when getting up out of his bed he actually fell and hit the right side of his torso against a dresser. He states that yesterday he went to see his primary care physician and ended up seeing the physician assistant brand manager who ordered a chest x-ray and did a flu swab but did not start him on any treatment. He states that his weakness continued to worsen over the course of the day yesterday. He states today he was having fevers with increasing weakness and began developing a cough with yellow sputum production and felt short of breath. He also states that he has been having headaches and nausea throughout the day. He states that he has a very poor appetite and has barely eaten anything in the last 2 days. He states that since the symptoms were not improving he finally decided to come to the emergency department. Patient denies any blurred vision, sore throat, difficulty swallowing, chest pain, orthopnea, PND, increased lower extremity swelling, abdominal pain, vomiting, diarrhea, constipation, urinary urgency, urinary frequency, dysuria, joint swelling, back pain, neck stiffness, recent unintentional weight loss, skin rash, skin changes, hair loss, polyuria, polydipsia, night sweats or any focal neurologic deficits. On presentation to the emergency department the patient was initially afebrile but then spiked a fever up to 38.9, blood pressure and heart rate remained stable. The patient was slightly hypoxic down to 90% on room air. The patient underwent a flu swab which was positive for influenza A. The patient's lab work revealed acute on chronic renal failure with a creatinine up to 2.4. The patient also had slightly elevated BUN and a low sodium all concerning for dehydration. The patient did not have any leukocytosis but did have a mild thrombocytopenia. The patient's chest x-ray revealed bibasilar infiltrates and a trace left effusion concerning for pneumonia. The patient was admitted to the medical escobar for influenza A and community-acquired pneumonia. Blood cultures were taken in the emergency department and patient was started on Tamiflu, ceftriaxone and azithromycin. - ALLERGIES Allergies/Adverse Reactions: Allergies Allergy/AdvReac Type Severity Reaction Status Date / Time Penicillins AdvReac Severe passed out Verified 01/08/18 18:59 codeine [Codeine] AdvReac Intermediate gi problems Verified 01/08/18 18:59 onion family Allergy Emesis Uncoded 01/08/18 18:59 - MEDICATIONS Home Medications: Ambulatory Orders Medication Instructions Recorded Confirmed Atorvastatin Calcium [Lipitor] 80 mg PO DAILY 02/02/13 01/09/18 Clopidogrel [Plavix] 75 mg PO DAILY 02/02/13 01/09/18 Fluticasone [Flonase] 1 sprays CLARK DAILY 02/02/13 01/09/18 Furosemide [Lasix] 30 mg PO DAILY 02/02/13 01/09/18 Losartan [Cozaar] 25 mg PO DAILY 02/02/13 01/09/18 Isosorbide Mononitrate [Isosorbide 30 mg PO DAILY 03/29/14 01/09/18 Mononitrate ER] Albuterol Sulfate [Proair Hfa 2 puffs INH Q4H PRN 01/09/18 01/09/18 Inhaler] Aspirin [Gandy Aspirin EC] 81 mg PO DAILY 01/09/18 01/09/18 Azelastine HCl 2 spray CLARK BID PRN 01/09/18 01/09/18 Carvedilol [Coreg] 3.125 mg PO DAILY 01/09/18 01/09/18 Cholecalciferol [Vitamin D3] 5,000 unit PO DAILY 01/09/18 01/09/18 Cyclosporine [Restasis] 1 each EACHEYE BID 01/09/18 01/09/18 Escitalopram Oxalate [Lexapro] 5 mg PO DAILY 01/09/18 01/09/18 Esomeprazole Magnesium [Nexium 20 mg PO QDAC 01/09/18 01/09/18 24Hr] Esomeprazole Magnesium [Nexium 40 mg PO QPM 01/09/18 01/09/18 24Hr] Folic Acid 1.6 mg PO QPM 01/09/18 01/09/18 Folic Acid 2.4 mg PO DAILY 01/09/18 01/09/18 Nitroglycerin [Nitrostat] 0.4 mg SL Q5MIN PRN 01/09/18 01/09/18 Cephalexin [Keflex] 500 mg PO BID #12 capsule 01/11/18 Oseltamivir [Tamiflu] 30 mg PO DAILY #7 capsule 01/11/18 guaiFENesin [Mucinex] 600 mg PO BID PRN #14 tablet 01/11/18 - PHYSICAL EXAM AT DISCHARGE General Appearance: positive: No acute distress, Alert. negative: Lethargic Eyes Bilateral: positive: Normal inspection, PERRL, No lid inflammation, Conjunctivae nml ENT: positive: ENT inspection nml, Pharynx nml, No signs of dehydration. negative: Purulent nasal drainage, Pharyngeal erythema, Oral lesions Neck: positive: Nml inspection, Thyroid nml, No JVD, Trachea midline. negative: Thyromegaly, Lymphadenopathy (R), Lymphadenopathy (L), Stiff neck, Swe lling/bruising, Tracheal deviation Respiratory: positive: Chest non-tender, No respiratory distress, Breath sounds nml. negative: Wheezes, Rales, Rhonchi Cardiovascular: positive: Regular rate & rhythm, No murmur, No gallop. negative: Irregularly irregular, Extrasystoles, Tachycardia, Bradycardia, JVD present, Systolic murmur, Diastolic murmur Peripheral Pulses: positive: 2+ Abdomen: positive: Non-tender, No organomegaly, Nml bowel sounds, No distention. negative: Tenderness, Guarding, Rebound Back: positive: Nml inspection. negative: CVA tenderness (R), CVA tenderness (L) Skin: positive: Color nml, No rash, Warm, Dry. negative: Cyanosis, Diaphoresis, Pallor Extremities: positive: Non-tender, Full ROM, Nml appearance. negative: Calf tenderness, Joint swelling, Mitzy's sign/cords Neurologic/Psychiatric: positive: Oriented x3, Motor nml, Sensation nml, Mood/affect nml. negative: Weakness, Sensory loss, Facial droop, Slurred/abnml speech, Depressed mood/affect - LABS Result Diagrams: 01/11/18 07:00 01/11/18 07:00 - FOLLOW UP Follow Up: You may follow up your PCP in one week. You were found to have influenza A, and Pneumonia in hospital. You was treated with anti-virus and antibiotics. Pt are prescribed this two meds to home. Also Home PT will follow up to your home to help you. Should your symptoms return or worsen, your may present ER or call 911 for help. - TIME SPENT Time Spent in Discharge (Minutes): 45
== END 2018-01-11 14:51 | disposition home health service (06) | DRG 194 ==
LOC: EDUNIT# → ED 18:57 → MS2 23:25 → FBP 01-09 00:45 → MS2 01-09 00:48
PROVIDERS: ADMIT Internal Medicine; ATTEND Nurse Practitioner Gerontology
DX: J11.1 Influenza due to unidentified influenza virus with other respiratory manifestations (principal); I10 Essential (primary) hypertension; E78.00 Pure hypercholesterolemia, unspecified; I25.2 Old myocardial infarction; J11.00 Influenza due to unidentified influenza virus with unspecified type of pneumonia; N17.9 Acute kidney failure, unspecified; E87.1 Hypo-osmolality and hyponatremia; I12.9 Hypertensive chronic kidney disease with stage 1 through stage 4 chronic kidney disease, or unspecified chronic kidney disease; N18.3 Chronic kidney disease, stage 3 (moderate); I25.10 Atherosclerotic heart disease of native coronary artery without angina pectoris; Z95.5 Presence of coronary angioplasty implant and graft; Z95.1 Presence of aortocoronary bypass graft; G47.33 Obstructive sleep apnea (adult) (pediatric); E78.5 Hyperlipidemia, unspecified
CPT/HCPCS: 36415; 71046; 80053; 82330; 82607; 83605; 83690; 85025; 87040; 87275; 87276; 87493; 93306; 94640; 96360; 99284

== ENCOUNTER 2018-01-14 08:10 | Outpatient (CLI) | payer MEDICARE, OTHER | END 2018-01-14 08:11 | disposition critical access hospital (66) | LOC: EMS 08:10 | PROVIDERS: ATTEND Surgery | DX: K92.1 Melena (principal); R53.1 Weakness; Z79.02 Long term (current) use of antithrombotics/antiplatelets | CPT/HCPCS: A0425; A0427 ==

== ENCOUNTER 2018-01-14 08:27 | Inpatient (IN) | payer MEDICARE, OTHER ==
[2018-01-14 09:09] LABS: ALBUMIN 2.8 g/dL (3.2-5.5); ALBUMIN/GLOBULIN RATIO 1.2 (1.0-2.2); CALCIUM 8.7 mg/dL (8.5-10.3); TOTAL PROTEIN 5.2 g/dL (6.7-8.2)
[2018-01-14] MEDS ORDERED: SODIUM CHLORIDE 0.9% 1,000 ML IV ONE (09:14)
[2018-01-14] MEDS ORDERED: FAMOTIDINE 20 MG/50 ML 50 ML IV ONE (09:15)
--- NOTE | 2018-01-14 09:17 | ED Physician Documentation ---
History of Present Illness - Stated complaint Stated Complaint: WEAK/DIZZY - Chief complaint Chief Complaint: Abd Pain - Additonal information Additional information: hx from pt 82 male plavix 2/2 8 stents recent admit for pna and flu A dc 2 days ago last night abd pain hematemesis and maroon stool feels SOA and weak prior colonoscopies no abn per pt Review of Systems Constitutional: denies: Fever Cardiac: denies: Chest pain / pressure, Palpitations Respiratory: reports: Dyspnea GI: reports: Abdominal Pain (not now), Hematemesis, Bloody / black stool Neurologic: reports: Generalized weakness Endocrine: reports: Easy bruising / bleeding Immunocompromised: denies: Immunocompromised PD PAST MEDICAL HISTORY - Past Medical History Cardiovascular: Hypertension, High cholesterol, Coronary artery disease, [place], Valve disorder Respiratory: Pneumonia, Sleep apnea, CPAP use Endocrine/Autoimmune: None GI: None : Renal insuffiency Psych: None Musculoskeletal: None Derm: Eczema, Psoriasis - Past Surgical History Past Surgical History: Yes General: Cholecystectomy, Appendectomy, Hiatal hernia repair Cardiovascular: CABG, Coronary stent, Other HEENT: Tonsil/Adenoidectomy Derm: Skin cancer surgery - Present Medications Home Medications: Ambulatory Orders Medication Instructions Recorded Confirmed Atorvastatin Calcium [Lipitor] 80 mg PO DAILY 02/02/13 01/14/18 Clopidogrel [Plavix] 75 mg PO DAILY 02/02/13 01/14/18 Fluticasone [Flonase] 1 sprays CLARK DAILY 02/02/13 01/14/18 Furosemide [Lasix] 30 mg PO DAILY 02/02/13 01/14/18 Losartan [Cozaar] 25 mg PO DAILY 02/02/13 01/14/18 Isosorbide Mononitrate [Isosorbide 60 mg PO DAILY 03/29/14 01/14/18 Mononitrate ER] Albuterol Sulfate [Proair Hfa 2 puffs INH Q4H PRN 01/09/18 01/14/18 Inhaler] Aspirin [Cope Aspirin EC] 81 mg PO DAILY 01/09/18 01/14/18 Azelastine HCl 2 spray CLARK BID PRN 01/09/18 01/14/18 Carvedilol [Coreg] 3.125 mg PO DAILY 01/09/18 01/14/18 Cholecalciferol [Vitamin D3] 5,000 unit PO DAILY 01/09/18 01/14/18 Cyclosporine [Restasis] 1 each EACHEYE BID 01/09/18 01/14/18 Escitalopram Oxalate [Lexapro] 5 mg PO DAILY 01/09/18 01/14/18 Esomeprazole Magnesium [Nexium 40 mg PO BID 01/09/18 01/14/18 24Hr] Folic Acid 2 mg PO QPM 01/09/18 01/14/18 Folic Acid 3 mg PO DAILY 01/09/18 01/14/18 Nitroglycerin [Nitrostat] 0.4 mg SL Q5MIN PRN 01/09/18 01/14/18 - Allergies Allergies/Adverse Reactions: Allergies Allergy/AdvReac Type Severity Reaction Status Date / Time Penicillins AdvReac Severe passed out Verified 01/14/18 08:33 codeine [Codeine] AdvReac Intermediate gi problems Verified 01/14/18 08:33 onion family Allergy Emesis Uncoded 01/14/18 08:33 - Social History Does the pt smoke?: No Smoking Status: Never smoker Does the pt drink ETOH?: Yes Does the pt have substance abuse?: No - Immunizations Immunizations are current?: No Immunizations: TDAP >10years/unknown - POLST Patient has POLST: No POLST Status: Full Code PD ED PE NORMAL - Vitals Vital signs reviewed: Yes (hypotensive) - General General: Alert and oriented X 3 - HEENT HEENT: Other (pale) - Neck Neck: Supple, no meningeal sign - Cardiac Cardiac: RRR - Respiratory Respiratory: No respiratory distress - Abdomen Abdomen: Soft, Non tender - Rectal Rectal: Other (no fissure hemorrhoid or mass nadeem maroon blood ) - Derm Derm: Other (pale) - Neuro Neuro: Alert and oriented X 3 Results - Vitals Vitals: Vital Signs - 24 hr 01/14/18 08:28 Temperature 35.7 C L Heart Rate 65 Respiratory 15 Rate Blood Pressure 97/56 L O2 Saturation 100 Oxygen O2 Source [Without Activity] Room air O2 Source Room air - EKG (time done) 0840 Rate: Rate (enter#) (61) Rhythm: NSR Intervals: RBBB Ischemia: Q waves (inf) - Labs Labs: Laboratory Tests 01/14/18 08:35 Sodium 139 Potassium 4.1 Chloride 109 Carbon Dioxide 22 Anion Gap 8.0 BUN 34 H Creatinine 2.0 H Estimated GFR (MDRD) 32 L Glucose 184 H Calcium 8.7 Total Bilirubin 1.0 AST 21 ALT 19 Alkaline Phosphatase 103 Total Protein 5.2 L Albumin 2.8 L Globulin 2.4 Albumin/Globulin Ratio 1.2 Lipase 28 PD MEDICAL DECISION MAKING - ED course ED course: delay 2/2 lab cannot run CBC hgb 10 - was 12 at dc creat baseline (labs won't import but were reviewed) hypotensive GIB, likely upper, in recently admitted pt on plavix given pepcid better after IVF resusc type and screened will admit called hospitalist at 1045 and she will admit to inpt - Sepsis Event Vital Signs: Vital Signs - 24 hr 01/14/18 08:28 Temperature 35.7 C L Heart Rate 65 Respiratory 15 Rate Blood Pressure 97/56 L O2 Saturation 100 Oxygen O2 Source [Without Activity] Room air O2 Source Room air Departure - Departure Disposition: [facility] DC/Xfer Clinical Impression: GI bleed Qualifiers: GI bleed type/associated pathology: unspecified gastrointestinal hemorrhage type Qualified Code(s): K92.2 - Gastrointestinal hemorrhage, unspecified Discharge Date/Time: 01/14/18 11:58
[2018-01-14 10:02] LABS: BILIRUBIN,URINE NEGATIVE (NEGATIVE); GLUCOSE, URINE (UA) NEGATIVE (NEGATIVE); KETONES,URINE (UA) NEGATIVE (NEGATIVE); LEUKOCYTE ESTERASE, URINE NEGATIVE (NEGATIVE); NITRITE,URINE NEGATIVE (NEGATIVE); OCCULT BLOOD,URINE NEGATIVE (NEGATIVE); PH,URINE 5.5 PH (5.0-7.5); PROTEIN,URINE NEGATIVE (NEGATIVE); UROBILINOGEN,URINE 0.2 (NORMAL) E.U./dL (NORMAL)
[2018-01-14 10:03] LABS: CLARITY,URINE CLEAR (CLEAR)
[2018-01-14 10:08] LABS: BASOPHILS % (AUTO) 0.3 %; EOSINOPHILS # (AUTO) 0.2 10^3/uL (0.0-0.7); EOSINOPHILS % (AUTO) 2.2 %; HGB - HEMOGLOBIN 10.1 g/dL (14.0-18.0); LYMPHOCYTES # (AUTO) 1.1 10^3/uL (1.5-3.5); LYMPHOCYTES % (AUTO) 12.1 %; MEAN CORPUSCULAR HEMOGLOBIN 32.7 pg (27.0-31.0); MEAN CORPUSCULAR HGB CONC 33.7 g/dL (32.0-36.0); MEAN PLATELET VOLUME 7.9 fL (7.4-11.4); MONOCYTES # (AUTO) 0.6 10^3/uL (0.0-1.0); MONOCYTES % (AUTO) 7.3 %; NEUTROPHILS # (AUTO) 6.8 10^3/uL (1.5-6.6); NEUTROPHILS % (AUTO) 78.1 %; PLT - PLATELET COUNT 225 10^3/uL (130-450); RED BLOOD COUNT 3.09 10^6/uL (4.70-6.10); WHITE BLOOD COUNT 8.7 x10^3/uL (4.8-10.8)
[2018-01-14 10:12] LABS: INR 1.1 (0.8-1.2); PT - PROTHROMBIN TIME 12.7 secs (9.9-12.6)
[2018-01-14] MEDS ORDERED: NITROGLYCERIN SL 0.4 MG TABLET SL PRN (11:27)
[2018-01-14] MEDS ORDERED: ALBUTEROL NEB 2.5 MG/3 ML INH PRN ×2 (11:47→11:48)
[2018-01-14] MEDS: DEXTROSE 5%-0.9% NACL 1,000 ML IV SCH (12:30)
[2018-01-14] MEDS ORDERED: guaiFENesin/CODEINE 5 ML UDC PO PRN (13:14)
--- NOTE | 2018-01-14 14:43 | HISTORY & PHYSICAL EXAMINATION ---
DATE OF SERVICE: 01/14/2018 Physician: Vanessa Caruso MD HISTORY OF PRESENT ILLNESS: This is an 82-year-old white male with a history of coronary artery disease, prior MD, 3-vessel bypass surgery and redone again, history of 8 coronary stents in total on Plavix and aspirin, history of mitral valve clipping done x2, history of a remote peptic ulcer and he cannot remember the details regarding this. The patient also has a history of dry eyes for which he takes eyedrops, has a history of sleep apnea on CPAP, chronic renal insufficiency, eczema and psoriasis, appendectomy and cholecystectomy and tonsillectomy and skin cancer surgery. The patient was admitted here and discharged just 2 days ago for community-acquired pneumonia and influenza A positive, sent home on Keflex, Tamiflu and Mucinex. The patient has felt weak since getting home, unable to walk his dog or exercise on the treadmill, which he normally does. This morning he awoke with abdominal pain and went to the bathroom and had emesis of dark fluid. This made him feel better and he went back to bed. He awoke again 1 hour later with similar symptoms and again had hematemesis. This time, he was very weak and sat on the toilet. He was too weak to arise and felt dizzy and sat there for 1 entire hour and then called out to his who called paramedics. The paramedics found him on the toilet, there had not been any diarrhea or bloody bowel movements, however. He does not remember what vital signs were noted at the scene. He was transported to the emergency room and in the ER was found to have a blood pressure of 97 systolic, received crystalloids for improvement of blood pressure. He currently has no abdominal pain, but states that he is tender "as if he has vomited a lot." He has never had this type of presentation before. He has been compliant with all his medications. Besides the antibiotics and Mucinex there has been no other new medication use. There has been no angina or heart failure symptoms with this. The symptoms only started approximately 6 hours ago. PAST MEDICAL HISTORY: Coronary artery disease with bypasses and stents, mitral regurgitation with 2 MitraClips, history of hypertension, chronic kidney disease with creatinine of 2.0 at baseline, eczema and psoriasis, dry eyes. ALLERGIES: NONE. MEDICATIONS: 1. Lipitor 80 mg daily. 2. Plavix 75 mg daily. 3. Aspirin 81 mg daily. 4. Flonase nasal spray daily. 5. Lasix 30 mg daily. 6. Losartan 25 mg daily. 7. Imdur 60 mg daily. 8. Albuterol inhaler p.r.n. 9. Azelastine nasal spray b.i.d. p.r.n. 10. Coreg 3.125 p.o. daily, which was decreased from 6.25 b.i.d. during this last admission because of low blood pressures 11. Vitamin D3 5000 units daily. 12. Restasis eyedrops daily. 13. Lexapro 5 mg daily. 14. Nexium 40 mg b.i.d., which he has been on for many years. 15. Folic acid 3 mg in the a.m., 2 mg in the p.m. and Sublingual nitro p.r.n. ALLERGIES: PENICILLIN AND CODEINE ALLERGY. SOCIAL HISTORY: The patient is a nonsmoker, quit 50 years ago. Drinks rare alcohol. Uses no illicit drugs. The patient lives with his and dog. 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 He does exercise on his treadmill occasionally during the week. REVIEW OF SYSTEMS: A comprehensive review of systems was performed and the pertinent positives are in the HPI, the rest are negative. FAMILY HISTORY: No inherited diseases. His parents both elderly in their 80s and 90s of heart failure. He has no children. PHYSICAL EXAMINATION: GENERAL: Elderly white male in no distress. He is very pale. VITAL SIGNS: Blood pressure 140/70, heart rate 50s and 60s in sinus rhythm, afebrile, room air saturation 96%. HEENT: Reveals scleral pallor, moist oral mucosa. NECK: Without JVD or carotid bruits. CHEST: Clear. HEART: Sounds normal. No audible murmur. No RV heave. No gallop. ABDOMEN: Soft, hypertympanic. No organomegaly, nontender. EXTREMITIES: No clubbing, cyanosis, edema. Normal leg pulses. NEUROLOGIC: Grossly intact. LABORATORIES: Normal electrolytes, BUN is 34, creatinine 2.0. Normal liver tests. INR normal. White blood count 8.7, MCV is 97, hemoglobin is 10, on the last admission it was 12, just 4 days ago. Platelet count normal at 225,000. Urinalysis unremarkable. No chest x-ray was done. No EKG was done. On the last admission from just 5 days ago, an Echo was done that showed normal LV size and EF, mitral valve thickening, presumably from the MitraClips and only mild mitral regurgitation is present. IMPRESSION/DIAGNOSES: 1. Gastrointestinal bleed in a patient on Plavix, aspirin, received subcutaneous heparin for DVT prophylaxis on the last admission just 3 and 4 days ago. The most likely diagnosis is an ulcer, possibly a stress ulcer. 2. Recent community-acquired pneumonia on Keflex. 3. Recent influenza A positive on Tamiflu. 4. History of coronary artery disease. 5. History of mitral regurgitation with a MitraClip. 6. History of hypertension, currently hypotension, presumably from acute blood loss anemia. 7. Chronic kidney disease with GFR of 32. PLAN: Admit the patient to Med/Surg status, on telemetry. Begin IV fluids using D5 NS for further blood pressure support. Hold his blood pressure lowering medications temporarily. Begin n.p.o. status, bowel rest, IV H2 blockers. Obtain a general surgery consult for an EGD, potentially colonoscopy. Follow his hemoglobin and hematocrit every 6 hours. The patient is already being typed and screened. Blood is on hold if the transfusion is needed. The patient is advised not to get out of bed since there has been dizziness and a documented low blood pressure, to call for a nurse and he should use a urinal and bedpan when needed. Deep venous thrombosis prophylaxis: SCDs. CODE STATUS: FULL CODE. ATTESTATION: The patient is expected to be discharged or transferred to another facility within 96 hours: Yes. cc: Denice Carty MD TD: 01/14/2018 13:43 MTDD
[2018-01-14 15:38] LABS: HGB - HEMOGLOBIN 9.2 g/dL (14.0-18.0)
[2018-01-14] MEDS: SODIUM CHLORIDE FLUSH 0.9% 10 ML SYRINGE IVP SCH (15:51)
[2018-01-14] MEDS: PROCHLORPERAZINE 10 MG/2 ML VIAL IVP PRN (16:26)
[2018-01-14] MEDS ORDERED: FAMOTIDINE 20 MG/50 ML 50 ML IV SCH (21:00)
[2018-01-14 21:02] LABS: HGB - HEMOGLOBIN 7.5 g/dL (14.0-18.0)
[2018-01-14] MEDS ORDERED: SODIUM CHLORIDE 0.9% 500 ML IV ONE ×4 (22:23→23:50)
[2018-01-14] MEDS ORDERED: PANTOPRAZOLE 40 MG VIAL IVP STA (22:33)
[2018-01-14] MEDS ORDERED: EPINEPHrine 1 MG/ML AMP ONE (22:39)
[2018-01-14] MEDS ORDERED: SODIUM CHLORIDE FLUSH 0.9% 10 ML SYRINGE ONE ×2 (22:40→22:43)
--- NOTE | 2018-01-14 22:46 | ANESTHESIA ---
Pre-Anesthesia VS, & Labs - Diagnosis GI Bleed - Procedure EGD Vital Signs: Temp Pulse Resp BP Pulse Ox 36.4 C L 73 20 100/60 98 01/14/18 20:27 01/14/18 20:27 01/14/18 20:27 01/14/18 20:27 01/14/18 20:27 Height 5 ft 7 in Weight (kg) 85.5 kg Body Mass Index 29.4 - NPO >8 hours - Lab Results Current Lab Results: Laboratory Tests 01/14/18 20:55: Hgb 7.5 L, Hct 22.4 L 01/14/18 15:34: Hgb 9.2 L, Hct 26.8 L 01/14/18 15:34: Blood Type Recheck A NEGATIVE 01/14/18 08:35: Blood Type A NEGATIVE, Antibody Screen POSITIVE, Antibody Identification Anti-D, Crossmatch See Detail 01/14/18 08:35: PT 12.7 H, INR 1.1, APTT 28.1 01/14/18 08:35: Sodium 139, Potassium 4.1, Chloride 109, Carbon Dioxide 22, Anion Gap 8.0, BUN 34 H, Creatinine 2.0 H, Estimated GFR (MDRD) 32 L, Glucose 184 H, Calcium 8.7, Total Bilirubin 1.0, AST 21, ALT 19, Alkaline Phosphatase 103, Total Protein 5.2 L, Albumin 2.8 L, Globulin 2.4, Albumin/Globulin Ratio 1.2, Lipase 28 01/14/18 08:35: WBC 8.7, RBC 3.09 L, Hgb 10.1 L, Hct 30.0 L, MCV 97.0 H, MCH 32.7 H, MCHC 33.7, RDW 14.0, Plt Count 225, MPV 7.9, Neut # (Auto) 6.8 H, Lymph # (Auto) 1.1 L, Wolfe # (Auto) 0.6, Eos # (Auto) 0.2, Baso # (Auto) 0.0, Absolute Nucleated RBC 0.00, Nucleated RBC % 0.0 Lab results reviewed: Yes Fish Bones: 01/14/18 20:55 01/14/18 08:35 Home Medications and Allergies Active Medications Albuterol () 2.5 mg INH RTQ4H PRN PRN Reason: Wheezing Cephalexin (Keflex) 500 mg PO BID [facility] Escitalopram Oxalate (Lexapro) 5 mg PO DAILY [facility] Fluticasone Propionate (Flonase) 1 sprays CLARK DAILY [facility] Guaifenesin/Codeine Phosphate (Robitussin Ac) 5 ml PO Q6HR PRN PRN Reason: Cough Dextrose/Sodium Chloride (D5ns) 1,000 mls @ 100 mls/hr IV .Q10H [facility] Last Infusion: 01/14/18 22:35 Dose: Infused Sodium Chloride (Normal Saline 0.9%) 500 mls @ 999 mls/hr IV ONCE ONE Stop: 01/14/18 22:53 Pantoprazole Sodium 80 mg/ (Sodium Chloride) 100 mls @ 10 mls/hr IV .Q10H [facility] Nitroglycerin (Nitrostat) 0.4 mg SL Q5MIN PRN PRN Reason: Chest Pain Oseltamivir Phosphate (Tamiflu) 30 mg PO BID [facility] Pantoprazole Sodium (Protonix) 80 mg IVP ONCE STA Stop: 01/14/18 22:34 Cyclosporine [ (Restasis] Eye Drops) 1 each EACHEYE BID [facility] Polyethylene Glycol (Miralax) 17 gm PO DAILY [facility] Prochlorperazine Edisylate (Compazine Inj) 10 mg IVP Q6HR PRN PRN Reason: Nausea / Vomiting Last Admin: 01/14/18 16:26 Dose: 10 mg Sodium Chloride (Normal Saline Flush 0.9%) 10 ml IVP PRN PRN PRN Reason: NEEDED PER PROVIDER ORDERS Sodium Chloride (Normal Saline Flush 0.9%) 10 ml IVP 0100,0900,1700 [facility] Last Admin: 01/14/18 15:51 Dose: Not Given Atorvastatin Calcium [Lipitor] 80 mg PO DAILY 02/02/13 Clopidogrel [Plavix] 75 mg PO DAILY 02/02/13 Fluticasone [Flonase] 1 sprays CLARK DAILY 02/02/13 Furosemide [Lasix] 30 mg PO DAILY 02/02/13 Losartan [Cozaar] 25 mg PO DAILY 02/02/13 Isosorbide Mononitrate [Isosorbide Mononitrate ER] 60 mg PO DAILY 03/29/14 Albuterol Sulfate [Proair Hfa Inhaler] 2 puffs INH Q4H PRN 01/09/18 Aspirin [Floyd Aspirin EC] 81 mg PO DAILY 01/09/18 Azelastine HCl 2 spray CLARK BID PRN 01/09/18 Carvedilol [Coreg] 3.125 mg PO DAILY 01/09/18 Cholecalciferol [Vitamin D3] 5,000 unit PO DAILY 01/09/18 Cyclosporine [Restasis] 1 each EACHEYE BID 01/09/18 Escitalopram Oxalate [Lexapro] 5 mg PO DAILY 01/09/18 Esomeprazole Magnesium [Nexium 24Hr] 40 mg PO BID 01/09/18 Folic Acid 2 mg PO QPM 01/09/18 Folic Acid 3 mg PO DAILY 01/09/18 Nitroglycerin [Nitrostat] 0.4 mg SL Q5MIN PRN 01/09/18 Allergies/Adverse Reactions: Allergies Allergy/AdvReac Type Severity Reaction Status Date / Time Penicillins AdvReac Severe passed out Verified 01/14/18 08:33 codeine [Codeine] AdvReac Intermediate gi problems Verified 01/14/18 08:33 onion family Allergy Emesis Uncoded 01/14/18 08:33 Anes History & Medical History - Anesthetic History Anesthesia Complications: reports: No previous complications Family history of Anesthesia Complications: Denies Family history of Malignant Hyperthermia: Denies - Medical History Cardiovascular: reports: Hypertension, High cholesterol, Coronary artery disease, [place], Valve disorder Pulmonary: reports: Pneumonia, Sleep apnea, CPAP use Gastrointestinal: reports: None Urinary: reports: Renal insuffiency Neuro: reports: None Musculoskeletal: reports: None Endocrine/Autoimmune: reports: None Blood Disorders: reports: None Skin: reports: Eczema, Psoriasis Smoking Status: Never smoker - Surgical History General: Cholecystectomy, Appendectomy, Hiatal hernia repair Eyes Ears Nose Throat (EENT): Tonsil/Adenoidectomy Cardiothoracic: CABG, Coronary stent, Other Dermatologic: Skin cancer surgery Exam General: Alert, Oriented x3, Cooperative, No acute distress Dental: Dentures full Upper, Dentures full Lower Mouth Openin Fingerbreadth Neck Mobility: Normal Mallampati classification: II Thyromental Distance: greater than 6 cm Respiratory: Normal breath sounds Cardiovascular: Regular rate, Normal S1, Normal S2, No murmurs Mental/Cognitive Status: Alert/Oriented X3, Normal for patient Cognitive Status: Within normal limits Plan Anesthesia Type: MAC Consent for Procedure(s) Verified and Reviewed: Yes Code Status: Attempt Resuscitation ASA classification: 3-Severe systemic disease Is this case an emergency?: Yes
[2018-01-14] MEDS ORDERED: THROMBIN (BOVINE) 5,000 UNIT VIAL TOP ONE (22:48)
[2018-01-14] MEDS ORDERED: EPINEPHrine 1 MG/ML AMP IVP ONE (22:48)
[2018-01-14] MEDS ORDERED: PANTOPRAZOLE 80 MG in SODIUM CHLORIDE 0.9% 100ML 100 ML IV SCH (23:00)
[2018-01-14] MEDS ORDERED: PANTOPRAZOLE 40 MG VIAL IVP SCH (23:00)
[2018-01-14] MEDS ORDERED: SODIUM CHLORIDE 0.9% 200 ML IV ONE (23:23)
--- NOTE | 2018-01-14 23:23 | CONSULTATION NOTE ---
Referring Provider Name of Referring Provider:: Dr Vanessa Caruso Consult Date: 01/14/18 Chief Complaint - Chief Complaint Chief Complaint: Upper gastrointestinal bleeding History of Present Illness - Admitted From Admitted From:: [facility] ED - History Obtained From Records Reviewed: Yes History obtained from: Patient, Dr. Luna, chart Exam Limitations: None - History of Present Illness HPI Comment/Other: Dr. Vanessa Caruso asked that I see this 82-year-old male who is on aspirin and Plavix as well as occasional ibuprofen who presented with decreasing hemoglo bin/hematocrit and per the chart a history of maroon stools and a bout of hematemesis. With this he became so lightheaded he though he was going to pass out. The patient has had previous colonoscopies and EGDs. He states that the colonoscopies were normal whereas the EGDs had shown an ulcer in the past. He is normally on a PPI daily. History - Past Medical History Cardiovascular: reports: Hypertension, High cholesterol, Coronary artery disease, [place], Valve disorder Respiratory: reports: Pneumonia, Sleep apnea, CPAP use Neuro: reports: None Endocrine/Autoimmune: reports: None GI: reports: None : reports: Renal insuffiency Psych: reports: None Musculoskeletal: reports: None Derm: reports: Eczema, Psoriasis MRSA Hx?: No - Past Surgical History General: reports: Cholecystectomy, Appendectomy, Hiatal hernia repair Cardiovascular: reports: CABG, Coronary stent, Other HEENT: reports: Tonsil/Adenoidectomy Derm: reports: Skin cancer surgery - Family & Social History Family History: Mother: (Mother of congestive heart failure and father of cancer), CAD, Father: , Cancer, Brother: Cancer Social History Notes: The patient lives in [place] with his and dog. He has been to his for 50 years they did not have any children. 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 The patient's inherited [address] acres of land in [place] from her father and they decided to come here and retire. The patient quit smoking about 50 years ago prior to that he smoked 1 pack a day for 15 years. He drinks alcohol socially but is not a daily drinker. He denies any illicit drug use. - POLST Patient has POLST: No POLST Status: Full Code Meds/Allgy - Home Medications Home Medications: Ambulatory Orders Medication Instructions Recorded Confirmed RX: Atorvastatin Calcium [Lipitor] 80 mg PO DAILY 02/02/13 01/14/18 RX: Clopidogrel [Plavix] 75 mg PO DAILY 02/02/13 01/14/18 RX: Fluticasone [Flonase] 1 sprays CLARK DAILY 02/02/13 01/14/18 RX: Furosemide [Lasix] 30 mg PO DAILY 02/02/13 01/14/18 RX: Losartan [Cozaar] 25 mg PO DAILY 02/02/13 01/14/18 RX: Isosorbide Mononitrate 60 mg PO DAILY 03/29/14 01/14/18 [Isosorbide Mononitrate ER] RX: Albuterol Sulfate [Proair Hfa 2 puffs INH Q4H PRN 01/09/18 01/14/18 Inhaler] RX: Aspirin [[place] Aspirin EC] 81 mg PO DAILY 01/09/18 01/14/18 RX: Azelastine HCl 2 spray CLARK BID PRN 01/09/18 01/14/18 RX: Carvedilol [Coreg] 3.125 mg PO DAILY 01/09/18 01/14/18 RX: Cholecalciferol [Vitamin D3] 5,000 unit PO DAILY 01/09/18 01/14/18 RX: Cyclosporine [Restasis] 1 each EACHEYE BID 01/09/18 01/14/18 RX: Escitalopram Oxalate [Lexapro] 5 mg PO DAILY 01/09/18 01/14/18 RX: Esomeprazole Magnesium [Nexium 40 mg PO BID 01/09/18 01/14/18 24Hr] RX: Folic Acid 2 mg PO QPM 01/09/18 01/14/18 RX: Folic Acid 3 mg PO DAILY 01/09/18 01/14/18 RX: Nitroglycerin [Nitrostat] 0.4 mg SL Q5MIN PRN 01/09/18 01/14/18 - Allergies Allergies/Adverse Reactions: Allergies Allergy/AdvReac Type Severity Reaction Status Date / Time Penicillins AdvReac Severe passed out Verified 01/14/18 08:33 codeine [Codeine] AdvReac Intermediate gi problems Verified 01/14/18 08:33 onion family Allergy Emesis Uncoded 01/14/18 08:33 Review of Systems - Constitutional Constitutional: reports: Fatigue. denies: Fever, Chills, Malaise - Eyes Eyes: denies: Pain - Ears, Nose & Throat Ears, Nose & Throat: denies: Ear pain - Cardiovascular Cariovascular: denies: Chest pain - Respiratory Respiratory: denies: Cough - Gastrointestinal Gastrointestinal: reports: Rectal bleeding, Bloody stools, Anthony blood emesis (By history.). denies: Abdominal pain - Genitourinary Genitourinary: denies: Dysuria - Integumentary Integumentary: denies: Rash - Neurological Neurological: reports: General weakness. denies: Focal weakness Exam - Vital Signs Reviewed Vital Signs: Yes Vital Signs: Vital Signs x48h Temp Pulse Pulse Resp BP BP Pulse Ox 01/14/18 23:00 36.8 C 81 16 101/63 01/14/18 22:44 36.4 C L 87 16 106/55 L 01/14/18 20:27 36.4 C L 73 20 100/60 98 01/14/18 18:58 100/58 L 01/14/18 18:48 36.6 C 84 16 90/43 L 94 01/14/18 15:45 36.7 C 53 L 20 131/57 H 97 - Physical Exam General Appearance: positive: No acute distress Eyes Bilateral: positive: No lid inflammation, Conjunctivae nml, No scleral icterus, Other (Sclera pale.) ENT: positive: Dry mucous membranes Neck: positive: Trachea midline Respiratory: positive: Chest non-tender, No respiratory distress, Breath sounds nml Cardiovascular: positive: Regular rate & rhythm Abdomen: positive: Non-tender, Nml bowel sounds, Tenderness Skin: positive: Pallor Extremities: positive: Non-tender, Nml appearance Neurologic/Psychiatric: positive: Oriented x3 Conclusion/Plan - Diagnosis Diagnosis: Gastrointestinal hemorrhage in an 82 year old male on aspirin and Plavix (as well as a daily PPI) - Plan Plan: Esophagogastroduodenoscopy with possible biopsies and/or polypectomies. Indications, procedure, alternatives (such as barium studies and even no procedure at all) and risks including but not limited to perforation requiring operative repair, bleeding with its risks, and were fully explained to him. Conscious sedation was discussed at length with him as were its risks including but not limited to loss of airway, aspiration, respiratory depression, and not enough relief of pain and anxiety. I explained that his posterior oropharynx would also be anesthetized for the procedure. I explained that MAC anesthesia is associated with a higher incidence of intestinal perforation but would be preferable in this case. Review of his history does not reveal any significant systemic disease that would contraindicate use of conscious sedation or MAC anesthesia. All questions were fully answered. Verbal and written consent was obtained. The patient in preparation for his esophagogastroduodenoscopy will be n.p.o. 45 minutes of [id number] time spent with the patient the majority of which was spent in discussion, coordination of his care and completion of the requisite paperwork Dragon disclaimer: This document was created in part using voice recognition technology. Because of the inherent limitations of the system ([employer]'s [employer] user manual states that the licensee understands that speech recognition is a statistical process and that recognition errors are inherent in the process), occasional same sounding word substitutions and grammatical errors do occur and persist despite proofreading. Please read this document for context. - Lab Results Lab results reviewed: Yes Alvarado Bones: 01/14/18 20:55 01/14/18 08:35
[2018-01-14] MEDS ORDERED: PROPOFOL 200 MG/20 ML VIAL IVP ONE (23:40)
[2018-01-14] MEDS ORDERED: LIDOCAINE-MPF 2% 5 ML VIAL IM ONE (23:40)
[2018-01-15] MEDS: cephALEXin 250 MG CAPSULE PO SCH ×3 (00:22→20:30)
[2018-01-15] MEDS: OSELTAMIVIR 30 MG CAPSULE PO SCH ×3 (00:24→20:35)
--- NOTE | 2018-01-15 00:24 | MISCELLANEOUS PROVIDER NOTE ---
Miscellaneous Provider Note - - Note: The MIKE test is positive - patient should be treated.
[2018-01-15] MEDS ORDERED: SODIUM CHLORIDE 0.9% 500 ML IV ONE (00:47)
[2018-01-15] MEDS ORDERED: metroNIDAZOLE 250 MG TABLET PO SCH (01:00)
[2018-01-15] MEDS: CYCLOSPORINE EYE EACHEYE SCH ×3 (01:07→20:33)
[2018-01-15] MEDS: DEXTROSE 5%-0.9% NACL 1,000 ML IV SCH ×3 (04:14→23:39)
[2018-01-15] MEDS: SODIUM CHLORIDE FLUSH 0.9% 10 ML SYRINGE IVP SCH ×4 (04:24→23:43)
[2018-01-15] MEDS: SODIUM CHLORIDE FLUSH 0.9% 10 ML SYRINGE IVP PRN ×2 (04:58→09:23)
[2018-01-15 05:53] LABS: BASOPHILS % (AUTO) 0.3 %; EOSINOPHILS % (AUTO) 3.5 %; HGB - HEMOGLOBIN 8.8 g/dL (14.0-18.0); LYMPHOCYTES % (AUTO) 20.6 %; MEAN CORPUSCULAR VOLUME 94.2 fL (80.0-94.0); MEAN PLATELET VOLUME 7.5 fL (7.4-11.4); MONOCYTES % (AUTO) 11.8 %; NEUTROPHILS % (AUTO) 63.8 %; PLT - PLATELET COUNT 205 10^3/uL (130-450); RED BLOOD COUNT 2.74 10^6/uL (4.70-6.10); RED CELL DISTRIBUTION WIDTH 16.3 % (12.0-15.0); WHITE BLOOD COUNT 6.6 x10^3/uL (4.8-10.8)
[2018-01-15 05:57] LABS: ABNORMAL LYMPHS % (MANUAL) 0 %
[2018-01-15 07:04] LABS: BAND NEUTROPHILS % (MANUAL) 15 %; BASOPHILS # (MANUAL) 0.1 10^3/uL (0-0.1); BASOPHILS % (MANUAL) 1 %; EOSINOPHILS # (MANUAL) 0.1 10^3/uL (0-0.7); LYMPHOCYTES # (MANUAL) 1.3 10^3/uL (1.5-3.5); LYMPHOCYTES % (MANUAL) 20 %; METAMYELOCYTES % (MANUAL) 1 %; MONOCYTES # (MANUAL) 0.3 10^3/uL (0.0-1.0); MYELOCYTES % (MANUAL) 1 %; NEUTROPHILS # (MANUAL) 4.7 10^3/uL (1.5-6.6); NEUTROPHILS % (MANUAL) 56 %; PLATELET ESTIMATE, MANUAL NORMAL (130-450,000) (NORMAL); RBC MORPHOLOGY (MULTIPLE) NORMAL APPEARANCE (NORMAL)
[2018-01-15 07:05] LABS: DIFFERENTIAL COMMENT MANUAL DIFFERENTIAL
[2018-01-15] MEDS: POLYETHYLENE GLYCOL 3350 17 GM PACKET PO SCH (07:13)
[2018-01-15] MEDS: CLARITHROMYCIN 500 MG TABLET PO SCH ×2 (09:05→20:31)
[2018-01-15] MEDS: ESCITALOPRAM 10 MG TABLET PO SCH (09:05)
[2018-01-15] MEDS: PANTOPRAZOLE 40 MG TABLET PO SCH ×2 (09:07→20:30)
[2018-01-15] MEDS: FLUTICASONE NASAL SPRAY NAS SCH (09:08)
[2018-01-15 13:14] LABS: HGB - HEMOGLOBIN 8.2 g/dL (14.0-18.0)
[2018-01-15 13:26] LABS: CREATININE 1.8 mg/dL (0.6-1.2)
[2018-01-15] MEDS: metroNIDAZOLE 250 MG TABLET PO SCH ×2 (13:47→22:01)
--- NOTE | 2018-01-15 15:43 | PROVIDER PROGRESS NOTE ---
Assessment/Plan - Problem List (1) GI bleed Qualifiers: GI bleed type/associated pathology: gastritis Qualified Code(s): K92.2 - Gastrointestinal hemorrhage, unspecified Assessment/Plan: Only gastritis in the antrum of the stomach was seen, no blood was seen during EGD done last evening. Also, a hiatal hernia was noted. Continue PPI ac. Will advance diet. Follow H/H every 6-12 hours. If there is rebleeding, will plan a nuclear bleeding scan. (2) Helicobacter pylori antibody positive Assessment/Plan: This was strongly positive, therefore she was started on Biaxin and Flagyl after EGD yesterday. Biopsy results still pending. (3) Anemia Qualifiers: Anemia type: unspecified cause Qualified Code(s): D64.9 - Anemia, unspecified Assessment/Plan: Pt did get 2U of PRBCs when Hgb fell below 8 and pt was very symptomatic yesterday with lightheadedness. Continue to follow H/H every 6-12 h. (4) Acute renal failure superimposed on stage 3 chronic kidney disease Qualifiers: Acute renal failure type: unspecified Qualified Code(s): N17.9 - Acute kidney failure, unspecified; N18.3 - Chronic kidney disease, stage 3 (moderate) Assessment/Plan: Creat is improving with volume replacemet with saline and blood transfusion. Monitor BMP daily. (5) History of coronary artery disease Assessment/Plan: Unfortunately, the pt must remain off ASA, Plavix, NSAIDs and Lovnox, until OKd by surgeon. He has no angina and none for many years. Continue other meds: B-anh, statin. (6) HONG on CPAP Assessment/Plan: Will order home CPAP unit to use while here. (7) CAP (community acquired pneumonia) Qualifiers: Laterality: unspecified laterality Qualified Code(s): J18.9 - Pneumonia, unspecified organism Assessment/Plan: Pt still on final days of oral antibiotic course for his last recent admission for CAP. (8) Influenza A Assessment/Plan: Pt still on final days of po Tamiflu for recent admission for Influenza A. (9) History of mitral valve disease Assessment/Plan: Pt has a [place] Clip. Stable. - Current Meds Current Meds: Current Medications Generic Name Dose Route Start Last Admin Trade Name Freq PRN Reason Stop Dose Admin Cephalexin 500 mg 01/14/18:00 01/15/18 09:08 Keflex PO 500 mg BID DONIS Administration Clarithromycin 500 mg 01/15/18 09:00 01/15/18 09:05 Biaxin PO 500 mg BID DONIS Administration Escitalopram Oxalate 5 mg 01/15/18 09:00 01/15/18 09:05 Lexapro PO 5 mg DAILY DONIS Administration Fluticasone Propionate 1 sprays 01/15/18 09:00 01/15/18 09:08 Flonase CLARK 1 spr DAILY DONIS Administration Dextrose/Sodium Chloride 1,000 mls @ 100 mls/hr 01/14/18 12:00 01/15/18 13:47 D5ns IV 100 mls/hr .Q10H DONIS Administration Metronidazole 500 mg 01/15/18 14:00 01/15/18 13:47 Flagyl PO 01/29/18 13:59 500 mg TID DONIS Administration Oseltamivir Phosphate 30 mg 01/14/18 21:00 01/15/18 09:07 Tamiflu PO 30 mg BID DONIS Administration Pantoprazole Sodium 40 mg 01/15/18 09:00 01/15/18 09:07 Protonix PO 40 mg BID DONIS Administration Cyclosporine [ 1 each 01/14/18 21:00 01/15/18 09:09 Restasis] Eye Drops EACHEYE 1 each BID DONIS Administration Polyethylene Glycol 17 gm 01/15/18 09:00 01/15/18 07:13 Miralax PO Not Given DAILY DONIS Prochlorperazine Edisylate 10 mg 01/14/18 11:20 01/14/18 16:26 Compazine Inj IVP 10 mg Q6HR PRN Administration Nausea / Vomiting Sodium Chloride 10 ml 01/14/18 11:20 01/15/18 09:23 Normal Saline Flush 0.9% IVP 10 ml PRN PRN Administration NEEDED PER PROVIDER ORDERS Sodium Chloride 10 ml 01/14/18 17:00 01/15/18 07:14 Normal Saline Flush 0.9% IVP Not Given 0100,0900,1700 DONIS - Lab Result Fish Bone Diagrams: 01/15/18 13:04 01/15/18 13:04 - Additional Planning My Orders: My Active Orders 01/14/18 17:00 Sodium Chloride Flush 0.9% [Normal Saline Flush 0.9%] 10 ml IVP 0100,0900,1700 01/14/18 18:11 Nebulizer/MDI Tx. [RC] .Q4PRN 01/14/18 21:00 Oseltamivir [Tamiflu] 30 mg PO BID Patient Own Med [Patient Own Medication] 1 each EACHEYE BID cephALEXin [Keflex] 500 mg PO BID 01/15/18 09:00 Escitalopram [Lexapro] 5 mg PO DAILY Fluticasone [Flonase] 1 sprays CLARK DAILY Polyethylene Glycol 3350 [Miralax] 17 gm PO DAILY 01/15/18 20:00 HEMOGLOBIN AND HEMATOCRIT [HEME] Timed 01/15/18 Lunch Clear Liquid Diet [DIET] 01/16/18 05:00 BMP - BASIC METABOLIC PANEL [CHEM] DAILYLAB CBC - COMP BLD CT W/AUTO DIFF [HEME] DAILYLAB 01/17/18 05:00 BMP - BASIC METABOLIC PANEL [CHEM] DAILYLAB CBC - COMP BLD CT W/AUTO DIFF [HEME] DAILYLAB Subjective - Subjective Patient Reports: Feeling Better, Other (No BMs since yesterday's bloody BMs.) Objective Vital Signs: Vital Signs - 24 hr 01/14/18 01/14/18 01/14/18 15:45 18:48 18:58 Temperature 36.7 C 36.6 C Heart Rate Heart Rate [ 53 L 84 Brachial] Respiratory 20 16 Rate Blood Pressure Blood Pressure 131/57 H 90/43 L 100/58 L [Left Brachial artery] O2 Saturation 97 94 01/14/18 01/14/18 01/14/18 20:25 20:27 22:44 Temperature 36.4 C L 36.4 C L Heart Rate 86 87 Heart Rate [ 73 Brachial] Respiratory 16 20 16 Rate Blood Pressure 106/55 L Blood Pressure 100/60 [Left Brachial artery] O2 Saturation 98 01/14/18 01/14/18 01/15/18 23:00 23:55 00:29 Temperature 36.8 C 37.0 C 36.7 C Heart Rate 81 64 Heart Rate [ Brachial] Respiratory 16 16 Rate Blood Pressure 101/63 126/106 H Blood Pressure 88/55 L [Left Brachial artery] O2 Saturation 100 01/15/18 01/15/18 01/15/18 00:56 01:16 04:11 Temperature 36.7 C 36.7 C 37.7 C H Heart Rate 72 72 66 Heart Rate [ Brachial] Respiratory 16 16 16 Rate Blood Pressure 106/52 L 101/48 L 109/83 H Blood Pressure [Left Brachial artery] O2 Saturation 01/15/18 01/15/18 01/15/18 04:35 07:57 13:00 Temperature 36.8 C 37.0 C Heart Rate Heart Rate [ 68 71 Brachial] Respiratory 16 18 19 Rate Blood Pressure Blood Pressure 115/54 L 131/55 H [Left Brachial artery] O2 Saturation 96 98 100 01/15/18 14:00 Temperature Heart Rate 72 Heart Rate [ Brachial] Respiratory 16 Rate Blood Pressure Blood Pressure [Left Brachial artery] O2 Saturation Oxygen O2 Source [Without Activity] Room air O2 Source Room air I&O (Last 24 Hrs): Intake and Output Totals x24h 01/13/18 01/14/18 01/15/18 23:59 23:59 23:59 Intake Total 2550 2853.500 Output Total 600 700 Balance 1950 2153.500 General: Alert, Oriented x3 HEENT: Mucous membr. moist/pink, Other (No longer pale) Neck: Supple, No JVD Neuro: Non Focal Cardiovascular: No murmurs Respiratory: No respiratory distress, Breath sounds nml Abdomen: Soft, No tenderness, No hepatospenomegaly Extremities: No edema - Results Results: Laboratory Results WBC 6.6 x10^3/uL (4.8-10.8) 01/15/18 05:15 RBC 2.74 10^6/uL (4.70-6.10) L 01/15/18 05:15 Hgb 8.2 g/dL (14.0-18.0) L 01/15/18 13:04 Hct 24.0 % (42.0-52.0) L 01/15/18 13:04 MCV 94.2 fL (80.0-94.0) H 01/15/18 05:15 MCH 32.0 pg (27.0-31.0) H 01/15/18 05:15 MCHC 34.0 g/dL (32.0-36.0) 01/15/18 05:15 RDW 16.3 % (12.0-15.0) H 01/15/18 05:15 Plt Count 205 10^3/uL (130-450) 01/15/18 05:15 MPV 7.5 fL (7.4-11.4) 01/15/18 05:15 Neut # (Auto) Not Reportable 01/15/18 05:15 Lymph # (Auto) Not Reportable 01/15/18 05:15 [place] # (Auto) Not Reportable 01/15/18 05:15 Eos # (Auto) Not Reportable 01/15/18 05:15 Baso # (Auto) Not Reportable 01/15/18 05:15 Absolute Nucleated RBC Not Reportable 01/15/18 05:15 Total Counted 100 01/15/18 05:15 Band Neuts % (Manual) 15 % (0-10) H 01/15/18 05:15 Abnorm Lymph % (Manual) 0 % 01/15/18 05:15 Metamyelocytes % 1 % (-0) H 01/15/18 05:15 Myelocytes % 1 % (-0) H 01/15/18 05:15 Nucleated RBC % Not Reportable 01/15/18 05:15 Neutrophils # (Manual) 4.7 10^3/uL (1.5-6.6) 01/15/18 05:15 Lymphocytes # (Manual) 1.3 10^3/uL (1.5-3.5) L 01/15/18 05:15 Monocytes # (Manual) 0.3 10^3/uL (0.0-1.0) 01/15/18 05:15 Eosinophils # (Manual) 0.1 10^3/uL (0-0.7) 01/15/18 05:15 Basophils # (Manual) 0.1 10^3/uL (0-0.1) 01/15/18 05:15 Differential Comment MANUAL DIFFERENTIAL 01/15/18 05:15 Platelet Estimate NORMAL (130-450,000) (NORMAL) 01/15/18 05:15 RBC Morph Micro Appear NORMAL APPEARANCE (NORMAL) 01/15/18 05:15 PT 12.7 secs (9.9-12.6) H 01/14/18 08:35 INR 1.1 (0.8-1.2) 01/14/18 08:35 APTT 28.1 secs (24.9-33.3) 01/14/18 08:35 Sodium 139 mmol/L (135-145) 01/15/18 13:04 Potassium 3.8 mmol/L (3.5-5.0) 01/15/18 13:04 Chloride 115 mmol/L (101-111) H 01/15/18 13:04 Carbon Dioxide 23 mmol/L (21-32) 01/15/18 13:04 Anion Gap 1.0 (6-13) L 01/15/18 13:04 BUN 27 mg/dL (6-20) H 01/15/18 13:04 Creatinine 1.8 mg/dL (0.6-1.2) H 01/15/18 13:04 Estimated GFR (MDRD) 36 (>89) L 01/15/18 13:04 Glucose 116 mg/dL (70-100) H 01/15/18 13:04 Calcium 8.0 mg/dL (8.5-10.3) L 01/15/18 13:04 Total Bilirubin 1.0 mg/dL (0.2-1.0) 01/14/18 08:35 AST 21 IU/L (10-42) 01/14/18 08:35 ALT 19 IU/L (10-60) 01/14/18 08:35 Alkaline Phosphatase 103 IU/L (42-121) 01/14/18 08:35 Total Protein 5.2 g/dL (6.7-8.2) L 01/14/18 08:35 Albumin 2.8 g/dL (3.2-5.5) L 01/14/18 08:35 Globulin 2.4 g/dL (2.1-4.2) 01/14/18 08:35 Albumin/Globulin Ratio 1.2 (1.0-2.2) 01/14/18 08:35 Lipase 28 U/L (22-51) 01/14/18 08:35 Urine Color YELLOW 01/14/18 09:15 Urine Clarity CLEAR (CLEAR) 01/14/18 09:15 Urine pH 5.5 PH (5.0-7.5) 01/14/18 09:15 Ur Specific [place] 1.025 (1.002-1.030) 01/14/18 09:15 Urine Protein NEGATIVE mg/dL (NEGATIVE) 01/14/18 09:15 Urine Glucose (UA) NEGATIVE mg/dL (NEGATIVE) 01/14/18 09:15 Urine Ketones NEGATIVE mg/dL (NEGATIVE) 01/14/18 09:15 Urine Occult Blood NEGATIVE (NEGATIVE) 01/14/18 09:15 Urine Nitrite NEGATIVE (NEGATIVE) 01/14/18 09:15 Urine Bilirubin NEGATIVE (NEGATIVE) 01/14/18 09:15 Urine Urobilinogen 0.2 (NORMAL) E.U./dL (NORMAL) 01/14/18 09:15 Ur Leukocyte Esterase NEGATIVE (NEGATIVE) 01/14/18 09:15 Ur Microscopic Review NOT INDICATED 01/14/18 09:15 Urine Culture Comments NOT INDICATED 01/14/18 09:15 Blood Type A NEGATIVE 01/14/18 08:35 Blood Type Recheck A NEGATIVE 01/14/18 15:34 Antibody Screen POSITIVE 01/14/18 08:35 Antibody Identification Anti-D 01/14/18 08:35 Crossmatch See Detail 01/14/18 08:35
[2018-01-15 20:09] LABS: HGB - HEMOGLOBIN 8.1 g/dL (14.0-18.0)
[2018-01-16] MEDS: metroNIDAZOLE 250 MG TABLET PO SCH ×3 (05:15→21:20)
[2018-01-16] MEDS: SODIUM CHLORIDE FLUSH 0.9% 10 ML SYRINGE IVP PRN (05:19)
[2018-01-16 05:27] LABS: BASOPHILS % (AUTO) 0.5 %; EOSINOPHILS % (AUTO) 7.3 %; HGB - HEMOGLOBIN 7.6 g/dL (14.0-18.0); LYMPHOCYTES % (AUTO) 19.5 %; MEAN CORPUSCULAR HEMOGLOBIN 31.6 pg (27.0-31.0); MEAN CORPUSCULAR HGB CONC 33.8 g/dL (32.0-36.0); MEAN CORPUSCULAR VOLUME 93.4 fL (80.0-94.0); MEAN PLATELET VOLUME 6.7 fL (7.4-11.4); MONOCYTES % (AUTO) 9.4 %; NEUTROPHILS % (AUTO) 63.3 %; PLT - PLATELET COUNT 232 10^3/uL (130-450); WHITE BLOOD COUNT 6.1 x10^3/uL (4.8-10.8)
[2018-01-16 05:29] LABS: CALCIUM 8.2 mg/dL (8.5-10.3); CREATININE 1.8 mg/dL (0.6-1.2)
[2018-01-16 05:33] LABS: ABNORMAL LYMPHS % (MANUAL) 0 %
[2018-01-16 06:13] LABS: BAND NEUTROPHILS % (MANUAL) 6 %; DIFFERENTIAL COMMENT MANUAL DIFFERENTIAL; EOSINOPHILS # (MANUAL) 0.2 10^3/uL (0-0.7); LYMPHOCYTES # (MANUAL) 1.1 10^3/uL (1.5-3.5); LYMPHOCYTES % (MANUAL) 18 %; MONOCYTES # (MANUAL) 0.4 10^3/uL (0.0-1.0); NEUTROPHILS # (MANUAL) 4.4 10^3/uL (1.5-6.6); NEUTROPHILS % (MANUAL) 66 %; PLATELET ESTIMATE, MANUAL NORMAL (130-450,000) (NORMAL); RBC MORPHOLOGY (MULTIPLE) NORMAL APPEARANCE (NORMAL)
[2018-01-16] MEDS: CLARITHROMYCIN 500 MG TABLET PO SCH ×2 (09:08→21:20)
[2018-01-16] MEDS: cephALEXin 250 MG CAPSULE PO SCH ×2 (09:08→21:20)
[2018-01-16] MEDS: PANTOPRAZOLE 40 MG TABLET PO SCH ×2 (09:09→21:19)
[2018-01-16] MEDS: ESCITALOPRAM 10 MG TABLET PO SCH (09:10)
[2018-01-16] MEDS: OSELTAMIVIR 30 MG CAPSULE PO SCH ×2 (09:14→21:21)
[2018-01-16] MEDS: FLUTICASONE NASAL SPRAY NAS SCH (09:15)
[2018-01-16] MEDS: CYCLOSPORINE EYE EACHEYE SCH ×2 (09:15→21:20)
[2018-01-16] MEDS: DEXTROSE 5%-0.9% NACL 1,000 ML IV SCH ×2 (09:16→22:25)
[2018-01-16] MEDS: POLYETHYLENE GLYCOL 3350 17 GM PACKET PO SCH (09:16)
[2018-01-16] MEDS: SODIUM CHLORIDE FLUSH 0.9% 10 ML SYRINGE IVP SCH ×3 (09:20→15:40)
--- NOTE | 2018-01-16 09:20 | PROVIDER PROGRESS NOTE ---
Assessment/Plan - Problem List (1) GI bleed Qualifiers: GI bleed type/associated pathology: gastritis Assessment/Plan: Since no obvious bleeding source was seen on EGD, will plan to do a tagged red cell nuclear scan to search for bleeding spot by nuclear imaging today. Also, pt will get a colonoscopy tomorrow, therefore a bowel prep will start today. Continue clear liquid diet. (2) Helicobacter pylori antibody positive Assessment/Plan: Pt on Biaxin, Flagyl and PPI, started after EGD. (3) Anemia Qualifiers: Anemia type: unspecified cause Assessment/Plan: Still has a H/H that is drifting down. Will transfuse 1 U of PRBCs today, no Lasix sibne he needs volume replacement. Follow H/H q12 h. (4) Acute renal failure superimposed on stage 3 chronic kidney disease Qualifiers: Acute renal failure type: unspecified Qualified Code(s): N17.9 - Acute kidney failure, unspecified; N18.3 - Chronic kidney disease, stage 3 (moderate) Assessment/Plan: Stable but abnormal. (5) History of coronary artery disease Assessment/Plan: Stable without overt sx. (6) HONG on CPAP Assessment/Plan: Home CPAP device was ordered to be used here. (7) CAP (community acquired pneumonia) Qualifiers: Laterality: unspecified laterality Qualified Code(s): J18.9 - Pneumonia, unspecified organism Assessment/Plan: Pt on course of oral antibiotic therapy yet. (8) Influenza A Assessment/Plan: Pt on course of Tamiflu yet. Will monitor LFTs intermittently. - Current Meds Current Meds: Current Medications Generic Name Dose Route Start Last Admin Trade Name Federicoq PRN Reason Stop Dose Admin Cephalexin 500 mg 01/14/18 21:00 01/15/18 20:30 Keflex PO 500 mg BID DONIS Administration Clarithromycin 500 mg 01/15/18 09:00 01/15/18 20:31 Biaxin PO 500 mg BID DONIS Administration Escitalopram Oxalate 5 mg 01/15/18 09:00 01/15/18 09:05 Lexapro PO 5 mg DAILY DONIS Administration Fluticasone Propionate 1 sprays 01/15/18 09:00 01/15/18 09:08 Flonase CLARK 1 spr DAILY DONIS Administration Dextrose/Sodium Chloride 1,000 mls @ 100 mls/hr 01/14/18 12:00 01/15/18 23:39 D5ns IV 100 mls/hr .Q10H DONIS Administration Metronidazole 500 mg 01/15/18 14:00 01/16/18 05:15 Flagyl PO 01/29/18 13:59 500 mg TID DONIS Administration Oseltamivir Phosphate 30 mg 01/14/18 21:00 01/15/18 20:35 Tamiflu PO 30 mg BID DONIS Administration Pantoprazole Sodium 40 mg 01/15/18 09:00 01/15/18 20:30 Protonix PO 40 mg BID DONIS Administration Cyclosporine [ 1 each 01/14/18 21:00 01/15/18 20:33 Restasis] Eye Drops EACHEYE 1 each BID DONIS Administration Polyethylene Glycol 17 gm 01/15/18 09:00 01/15/18 07:13 Miralax PO Not Given DAILY DONIS Prochlorperazine Edisylate 10 mg 01/14/18 11:20 01/14/18 16:26 Compazine Inj IVP 10 mg Q6HR PRN Administration Nausea / Vomiting Sodium Chloride 10 ml 01/14/18 11:20 01/16/18 05:19 Normal Saline Flush 0.9% IVP 10 ml PRN PRN Administration NEEDED PER PROVIDER ORDERS Sodium Chloride 10 ml 01/14/18 17:00 01/15/18 23:43 Normal Saline Flush 0.9% IVP Not Given 0100,0900,1700 DONIS - Lab Result Fish Bone Diagrams: 01/16/18 05:15 01/16/18 05:15 - Additional Planning My Orders: My Active Orders 01/15/18 09:00 Escitalopram [Lexapro] 5 mg PO DAILY Fluticasone [Flonase] 1 sprays CLARK DAILY Polyethylene Glycol 3350 [Miralax] 17 gm PO DAILY 01/15/18 17:57 GI Bleed/Tagged RBC [NM] Routine 01/15/18 Lunch Clear Liquid Diet [DIET] 01/16/18 09:17 Transfuse RBCs Leukoreduced [RC] .ONCE 01/16/18 18:00 HEMOGLOBIN AND HEMATOCRIT [HEME] Timed 01/17/18 05:00 BMP - BASIC METABOLIC PANEL [CHEM] DAILYLAB CBC - COMP BLD CT W/AUTO DIFF [HEME] DAILYLAB Subjective - Subjective Patient Reports: Feeling Better Nursing Reports: Other (Small dark loose BM this am, not maroon or bloody) Objective Vital Signs: Vital Signs - 24 hr 01/15/18 01/15/18 01/15/18 13:00 14:00 15:47 Temperature 37.0 C 36.8 C Heart Rate 72 Heart Rate [ 71 60 Brachial] Respiratory 19 16 24 Rate Blood Pressure 131/55 H [Left Brachial artery] Blood Pressure 123/51 L [Right Brachial artery] O2 Saturation 100 98 01/15/18 01/16/18 01/16/18 20:12 00:14 05:00 Temperature 37.0 C 37.1 C 36.3 C L Heart Rate Heart Rate [ 62 83 70 Brachial] Respiratory 24 16 16 Rate Blood Pressure [Left Brachial artery] Blood Pressure 129/51 L 121/77 128/51 L [Right Brachial artery] O2 Saturation 100 96 98 01/16/18 07:37 Temperature 36.5 C Heart Rate Heart Rate [ 61 Brachial] Respiratory 20 Rate Blood Pressure [Left Brachial artery] Blood Pressure 113/51 L [Right Brachial artery] O2 Saturation 100 Oxygen O2 Source [Without Activity] Room air O2 Source BIPAP I&O (Last 24 Hrs): Intake and Output Totals x24h 01/14/18 01/15/18 01/16/18 23:59 23:59 23:59 Intake Total 2550 4490.167 220 Output Total 600 1425 875 Balance 1950 3065.167 -655 General: Alert, Oriented x3 HEENT: Mucous membr. moist/pink, Other (Pale) Neck: Supple, No JVD Neuro: Non Focal Cardiovascular: Regular rate Respiratory: No respiratory distress Abdomen: Soft Extremities: No edema - Results Results: Laboratory Results WBC 6.1 x10^3/uL (4.8-10.8) 01/16/18 05:15 RBC 2.40 10^6/uL (4.70-6.10) L 01/16/18 05:15 Hgb 7.6 g/dL (14.0-18.0) L 01/16/18 05:15 Hct 22.4 % (42.0-52.0) L 01/16/18 05:15 MCV 93.4 fL (80.0-94.0) 01/16/18 05:15 MCH 31.6 pg (27.0-31.0) H 01/16/18 05:15 MCHC 33.8 g/dL (32.0-36.0) 01/16/18 05:15 RDW 16.0 % (12.0-15.0) H 01/16/18 05:15 Plt Count 232 10^3/uL (130-450) 01/16/18 05:15 MPV 6.7 fL (7.4-11.4) L 01/16/18 05:15 Neut # (Auto) Not Reportable 01/16/18 05:15 Lymph # (Auto) Not Reportable 01/16/18 05:15 [place] # (Auto) Not Reportable 01/16/18 05:15 Eos # (Auto) Not Reportable 01/16/18 05:15 Baso # (Auto) Not Reportable 01/16/18 05:15 Absolute Nucleated RBC Not Reportable 01/16/18 05:15 Total Counted 100 01/16/18 05:15 Band Neuts % (Manual) 6 % (0-10) 01/16/18 05:15 Abnorm Lymph % (Manual) 0 % 01/16/18 05:15 Metamyelocytes % 1 % (-0) H 01/15/18 05:15 Myelocytes % 1 % (-0) H 01/15/18 05:15 Nucleated RBC % Not Reportable 01/16/18 05:15 Neutrophils # (Manual) 4.4 10^3/uL (1.5-6.6) 01/16/18 05:15 Lymphocytes # (Manual) 1.1 10^3/uL (1.5-3.5) L 01/16/18 05:15 Monocytes # (Manual) 0.4 10^3/uL (0.0-1.0) 01/16/18 05:15 Eosinophils # (Manual) 0.2 10^3/uL (0-0.7) 01/16/18 05:15 Basophils # (Manual) 0.0 10^3/uL (0-0.1) 01/16/18 05:15 Differential Comment MANUAL DIFFERENTIAL 01/16/18 05:15 Platelet Estimate NORMAL (130-450,000) (NORMAL) 01/16/18 05:15 RBC Morph Micro Appear NORMAL APPEARANCE (NORMAL) 01/16/18 05:15 PT 12.7 secs (9.9-12.6) H 01/14/18 08:35 INR 1.1 (0.8-1.2) 01/14/18 08:35 APTT 28.1 secs (24.9-33.3) 01/14/18 08:35 Sodium 140 mmol/L (135-145) 01/16/18 05:15 Potassium 3.8 mmol/L (3.5-5.0) 01/16/18 05:15 Chloride 115 mmol/L (101-111) H 01/16/18 05:15 Carbon Dioxide 22 mmol/L (21-32) 01/16/18 05:15 Anion Gap 3.0 (6-13) L 01/16/18 05:15 BUN 20 mg/dL (6-20) 01/16/18 05:15 Creatinine 1.8 mg/dL (0.6-1.2) H 01/16/18 05:15 Estimated GFR (MDRD) 36 (>89) L 01/16/18 05:15 Glucose 127 mg/dL (70-100) H 01/16/18 05:15 Calcium 8.2 mg/dL (8.5-10.3) L 01/16/18 05:15 Magnesium 1.8 mg/dL (1.7-2.8) 01/16/18 05:15 Total Bilirubin 1.0 mg/dL (0.2-1.0) 01/14/18 08:35 AST 21 IU/L (10-42) 01/14/18 08:35 ALT 19 IU/L (10-60) 01/14/18 08:35 Alkaline Phosphatase 103 IU/L (42-121) 01/14/18 08:35 Total Protein 5.2 g/dL (6.7-8.2) L 01/14/18 08:35 Albumin 2.8 g/dL (3.2-5.5) L 01/14/18 08:35 Globulin 2.4 g/dL (2.1-4.2) 01/14/18 08:35 Albumin/Globulin Ratio 1.2 (1.0-2.2) 01/14/18 08:35 Lipase 28 U/L (22-51) 01/14/18 08:35 Urine Color YELLOW 01/14/18 09:15 Urine Clarity CLEAR (CLEAR) 01/14/18 09:15 Urine pH 5.5 PH (5.0-7.5) 01/14/18 09:15 Ur Specific [place] 1.025 (1.002-1.030) 01/14/18 09:15 Urine Protein NEGATIVE mg/dL (NEGATIVE) 01/14/18 09:15 Urine Glucose (UA) NEGATIVE mg/dL (NEGATIVE) 01/14/18 09:15 Urine Ketones NEGATIVE mg/dL (NEGATIVE) 01/14/18 09:15 Urine Occult Blood NEGATIVE (NEGATIVE) 01/14/18 09:15 Urine Nitrite NEGATIVE (NEGATIVE) 01/14/18 09:15 Urine Bilirubin NEGATIVE (NEGATIVE) 01/14/18 09:15 Urine Urobilinogen 0.2 (NORMAL) E.U./dL (NORMAL) 01/14/18 09:15 Ur Leukocyte Esterase NEGATIVE (NEGATIVE) 01/14/18 09:15 Ur Microscopic Review NOT INDICATED 01/14/18 09:15 Urine Culture Comments NOT INDICATED 01/14/18 09:15 Blood Type A NEGATIVE 01/15/18 13:04 Blood Type Recheck A NEGATIVE 01/14/18 15:34 Antibody Screen POSITIVE 01/15/18 13:04 Antibody Identification Anti-C Anti-D 01/15/18 13:04 Antibody Identification Anti-C Anti-D 01/15/18 13:04 Crossmatch See Detail 01/15/18 13:04
[2018-01-16] MEDS ORDERED: MIN OIL/DIMETHICON/COCONUT OIL 92 GM TUBE TOP PRN (10:50)
[2018-01-16] MEDS: PROCHLORPERAZINE 10 MG/2 ML VIAL IVP PRN (11:25)
--- NOTE | 2018-01-16 13:00 | PROVIDER PROGRESS NOTE ---
Subjective - General Admit Date: 01/14/18 Procedure Date: 01/15/18 (EGD) Post Op Days: 4 Procedure Performed: EGD - Review of Systems General: positive: No symptoms HEENT: positive: No symptoms Pulmonary: positive: No symptoms Cardiovascular: positive: No symptoms Gastrointestinal: positive: No symptoms Genitourinary: positive: No symptoms Musculoskeletal: positive: No symptoms Skin: positive: No symptoms Psychiatric: positive: No symptoms Objective - Patient Data Reviewed Vital Signs: Yes Vital Signs: Vital Signs x48h Temp Pulse Resp BP Pulse Ox 01/16/18 07:37 36.5 C 61 20 113/51 L 100 01/16/18 05:00 36.3 C L 70 16 128/51 L 98 Weight: Weight 01/14/18 01/15/18 01/16/18 23:59 23:59 23:59 Weight (kg) 85.5 kg 85.5 kg Intake & Output: Intake and Output Totals x24h 01/14/18 01/15/18 01/16/18 23:59 23:59 23:59 Intake Total 2550 4490.167 1181.667 Output Total 600 1425 875 Balance 1950 3065.167 306.667 - Lab Results Lab Results: 01/18/18 13:29 01/17/18 05:05 Other Lab Results: Lab Results x24hrs 01/16/18 01/16/18 01/16/18 Range/Units 05:15 05:15 05:15 WBC 6.1 (4.8-10.8) x10^3/uL RBC 2.40 L (4.70-6.10) 10^6/uL Hgb 7.6 L (14.0-18.0) g/dL Hct 22.4 L (42.0-52.0) % MCV 93.4 (80.0-94.0) fL MCH 31.6 H (27.0-31.0) pg MCHC 33.8 (32.0-36.0) g/dL RDW 16.0 H (12.0-15.0) % Plt Count 232 (130-450) 10^3/uL MPV 6.7 L (7.4-11.4) fL Neut # (Auto) Not Reportable Lymph # (Auto) Not Reportable [place] # (Auto) Not Reportable Eos # (Auto) Not Reportable Baso # (Auto) Not Reportable Absolute Nucleated RBC Not Reportable Total Counted 100 Band Neuts % (Manual) 6 (0 - 10) % Abnorm Lymph % (Manual) 0 % Nucleated RBC % Not Reportable Neutrophils # (Manual) 4.4 (1.5-6.6) 10^3/uL Lymphocytes # (Manual) 1.1 L (1.5-3.5) 10^3/uL Monocytes # (Manual) 0.4 (0.0-1.0) 10^3/uL Eosinophils # (Manual) 0.2 (0-0.7) 10^3/uL Basophils # (Manual) 0.0 (0-0.1) 10^3/uL Differential Comment MANUAL DIFFERENTIAL Platelet Estimate NORMAL (130-450,000) (NORMAL) RBC Morph Micro Appear NORMAL APPEARANCE (NORMAL) Sodium 140 (135-145) mmol/L Potassium 3.8 (3.5-5.0) mmol/L Chloride 115 H (101-111) mmol/L Carbon Dioxide 22 (21-32) mmol/L Anion Gap 3.0 L (6-13) BUN 20 (6-20) mg/dL Creatinine 1.8 H (0.6-1.2) mg/dL Estimated GFR (MDRD) 36 L (>89) Glucose 127 H (70-100) mg/dL Calcium 8.2 L (8.5-10.3) mg/dL Magnesium 1.8 (1.7-2.8) mg/dL Blood Type Antibody Screen Antibody Identification Crossmatch 01/15/18 01/15/18 01/15/18 Range/Units 20:00 13:04 13:04 WBC (4.8-10.8) x10^3/uL RBC (4.70-6.10) 10^6/uL Hgb 8.1 L (14.0-18.0) g/dL Hct 23.9 L (42.0-52.0) % MCV (80.0-94.0) fL MCH (27.0-31.0) pg MCHC (32.0-36.0) g/dL RDW (12.0-15.0) % Plt Count (130-450) 10^3/uL MPV (7.4-11.4) fL Neut # (Auto) Lymph # (Auto) [place] # (Auto) Eos # (Auto) Baso # (Auto) Absolute Nucleated RBC Total Counted Band Neuts % (Manual) (0 - 10) % Abnorm Lymph % (Manual) % Nucleated RBC % Neutrophils # (Manual) (1.5-6.6) 10^3/uL Lymphocytes # (Manual) (1.5-3.5) 10^3/uL Monocytes # (Manual) (0.0-1.0) 10^3/uL Eosinophils # (Manual) (0-0.7) 10^3/uL Basophils # (Manual) (0-0.1) 10^3/uL Differential Comment Platelet Estimate (NORMAL) RBC Morph Micro Appear (NORMAL) Sodium 139 (135-145) mmol/L Potassium 3.8 (3.5-5.0) mmol/L Chloride 115 H (101-111) mmol/L Carbon Dioxide 23 (21-32) mmol/L Anion Gap 1.0 L (6-13) BUN 27 H (6-20) mg/dL Creatinine 1.8 H (0.6-1.2) mg/dL Estimated GFR (MDRD) 36 L (>89) Glucose 116 H (70-100) mg/dL Calcium 8.0 L (8.5-10.3) mg/dL Magnesium (1.7-2.8) mg/dL Blood Type A NEGATIVE Antibody Screen POSITIVE Antibody Identification Anti-D Crossmatch See Detail 01/15/18 01/14/18 Range/Units 13:04 08:35 WBC (4.8-10.8) x10^3/uL RBC (4.70-6.10) 10^6/uL Hgb 8.2 L (14.0-18.0) g/dL Hct 24.0 L (42.0-52.0) % MCV (80.0-94.0) fL MCH (27.0-31.0) pg MCHC (32.0-36.0) g/dL RDW (12.0-15.0) % Plt Count (130-450) 10^3/uL MPV (7.4-11.4) fL Neut # (Auto) Lymph # (Auto) [place] # (Auto) Eos # (Auto) Baso # (Auto) Absolute Nucleated RBC Total Counted Band Neuts % (Manual) (0 - 10) % Abnorm Lymph % (Manual) % Nucleated RBC % Neutrophils # (Manual) (1.5-6.6) 10^3/uL Lymphocytes # (Manual) (1.5-3.5) 10^3/uL Monocytes # (Manual) (0.0-1.0) 10^3/uL Eosinophils # (Manual) (0-0.7) 10^3/uL Basophils # (Manual) (0-0.1) 10^3/uL Differential Comment Platelet Estimate (NORMAL) RBC Morph Micro Appear (NORMAL) Sodium (135-145) mmol/L Potassium (3.5-5.0) mmol/L Chloride (101-111) mmol/L Carbon Dioxide (21-32) mmol/L Anion Gap (6-13) BUN (6-20) mg/dL Creatinine (0.6-1.2) mg/dL Estimated GFR (MDRD) (>89) Glucose (70-100) mg/dL Calcium (8.5-10.3) mg/dL Magnesium (1.7-2.8) mg/dL Blood Type Antibody Screen Antibody Identification Anti-D Crossmatch - Current Medications Current Medications: Current Medications Generic Name Dose Route Start Last Admin Trade Name Federicoq PRN Reason Stop Dose Admin Cephalexin 500 mg 01/14/18 21:00 01/16/18 09:08 Keflex PO 500 mg BID DONIS Administration Clarithromycin 500 mg 01/15/18 09:00 01/16/18 09:08 Biaxin PO 500 mg BID DONIS Administration Escitalopram Oxalate 5 mg 01/15/18 09:00 01/16/18 09:10 Lexapro PO 5 mg DAILY DONIS Administration Fluticasone Propionate 1 sprays 01/15/18 09:00 01/16/18 09:15 Flonase CLARK 1 spr DAILY DONIS Administration Dextrose/Sodium Chloride 1,000 mls @ 100 mls/hr 01/14/18 12:00 01/16/18 09:16 D5ns IV 100 mls/hr .Q10H DONIS Administration Metronidazole 500 mg 01/15/18 14:00 01/16/18 05:15 Flagyl PO 01/29/18 13:59 500 mg TID DONIS Administration Oseltamivir Phosphate 30 mg 01/14/18 21:00 01/16/18 09:14 Tamiflu PO 30 mg BID DONIS Administration Pantoprazole Sodium 40 mg 01/15/18 09:00 01/16/18 09:09 Protonix PO 40 mg BID DONIS Administration Cyclosporine [ 1 each 01/14/18 21:00 01/16/18 09:15 Restasis] Eye Drops EACHEYE 1 each BID DONIS Administration Polyethylene Glycol 17 gm 01/15/18 09:00 01/16/18 09:16 Miralax PO Not Given DAILY DONIS Prochlorperazine Edisylate 10 mg 01/14/18 11:20 01/16/18 11:25 Compazine Inj IVP 10 mg Q6HR PRN Administration Nausea / Vomiting Sodium Chloride 10 ml 01/14/18 11:20 01/16/18 05:19 Normal Saline Flush 0.9% IVP 10 ml PRN PRN Administration NEEDED PER PROVIDER ORDERS Sodium Chloride 10 ml 01/14/18 17:00 01/16/18 11:26 Normal Saline Flush 0.9% IVP 10 ml 0100,0900,1700 DONIS Administration - Physical Exam General Appearance: positive: No acute distress Eyes Bilateral: positive: No lid inflammation, Conjunctivae nml, No scleral icterus ENT: positive: No signs of dehydration Neck: positive: Trachea midline Respiratory: positive: Chest non-tender, Breath sounds nml Cardiovascular: positive: Regular rate & rhythm Abdomen: positive: Non-tender, No organomegaly, Nml bowel sounds, No distention Skin: positive: Pallor (Slight.) Extremities: positive: Nml appearance Neurologic/Psychiatric: positive: Oriented x3 Impression/Plan - Problem List Problem List: At 1230 patient still getting bleeding scan. Prep for colonoscopy ordered. Verbal consent obtained written consent will be obtained the day of the procedure. The colonoscopy is planned for tomorrow.
--- NOTE | 2018-01-16 14:31 | Nuclear Medicine Report ---
Reason: GI bleed Procedure Date: 01/16/2018 Accession Number: [id number] / [id number] Procedure: NM - GI Bleed/Tagged RBC CPT Code: FULL RESULT: EXAM: GASTROINTESTINAL BLEED LOCALIZATION STUDY WITH VASCULAR FLOW STUDY EXAM DATE: 01/16/2018 01:45 PM. CLINICAL HISTORY: GI bleed. COMPARISON: None. TECHNIQUE: The patient's own red blood cells were labeled with 31.3 mCi Tc-99m pertechnetate according to department protocol. Following the administration of the radiolabeled red blood cells, dynamic flow images were acquired for the initial 2 minutes. Next, dynamic gamma camera imaging for a total of 60 minutes post injection was acquired from the anterior projection. Postvoid images were also acquired. FINDINGS: No foci of progressive antegrade or retrograde radiotracer activity to suggest etiology of GI bleed. Physiological uptake in vasculature, spleen, liver, and bladder. IMPRESSION: No scintigraphic evidence of active GI bleed. RADIA
[2018-01-16] MEDS: SODIUM/POTASSIUM/MAG SULFATES 354 ML PREP KIT PO SCH (18:12)
[2018-01-17] MEDS: SODIUM CHLORIDE FLUSH 0.9% 10 ML SYRINGE IVP SCH ×4 (02:03→20:27)
[2018-01-17] MEDS: metroNIDAZOLE 250 MG TABLET PO SCH ×3 (05:25→20:23)
[2018-01-17] MEDS: SODIUM/POTASSIUM/MAG SULFATES 354 ML PREP KIT PO SCH (05:27)
[2018-01-17 05:31] LABS: BASOPHILS % (AUTO) 0.4 %; EOSINOPHILS % (AUTO) 5.5 %; HGB - HEMOGLOBIN 7.9 g/dL (14.0-18.0); LYMPHOCYTES % (AUTO) 19.7 %; MEAN CORPUSCULAR HGB CONC 34.6 g/dL (32.0-36.0); MEAN CORPUSCULAR VOLUME 92.4 fL (80.0-94.0); MEAN PLATELET VOLUME 6.6 fL (7.4-11.4); MONOCYTES % (AUTO) 7.9 %; NEUTROPHILS % (AUTO) 66.5 %; PLT - PLATELET COUNT 259 10^3/uL (130-450); RED BLOOD COUNT 2.48 10^6/uL (4.70-6.10); RED CELL DISTRIBUTION WIDTH 16.9 % (12.0-15.0); WHITE BLOOD COUNT 7.5 x10^3/uL (4.8-10.8)
[2018-01-17 05:37] LABS: CALCIUM 8.6 mg/dL (8.5-10.3); CREATININE 1.7 mg/dL (0.6-1.2)
[2018-01-17 05:38] LABS: ABNORMAL LYMPHS % (MANUAL) 0 %
[2018-01-17 06:14] LABS: BAND NEUTROPHILS % (MANUAL) 4 %; DIFFERENTIAL COMMENT MANUAL DIFFERENTIAL; EOSINOPHILS # (MANUAL) 0.8 10^3/uL (0-0.7); LYMPHOCYTES # (MANUAL) 1.1 10^3/uL (1.5-3.5); LYMPHOCYTES % (MANUAL) 15 %; MONOCYTES # (MANUAL) 0.3 10^3/uL (0.0-1.0); NEUTROPHILS # (MANUAL) 5.3 10^3/uL (1.5-6.6); NEUTROPHILS % (MANUAL) 66 %; PLATELET ESTIMATE, MANUAL NORMAL (130-450,000) (NORMAL); RBC MORPHOLOGY (MULTIPLE) NORMAL APPEARANCE (NORMAL)
[2018-01-17] MEDS: POLYETHYLENE GLYCOL 3350 17 GM PACKET PO SCH (07:25)
[2018-01-17] MEDS ORDERED: DEXTROSE 5%-0.9% NACL 1,000 ML IV SCH ×2 (08:09)
[2018-01-17 08:45] LABS: ALBUMIN 2.6 g/dL (3.2-5.5); BILIRUBIN,DIRECT 0.2 mg/dL (0.1-0.5); BILIRUBIN,TOTAL 0.3 mg/dL (0.2-1.0); TOTAL PROTEIN 4.7 g/dL (6.7-8.2)
[2018-01-17] MEDS: OSELTAMIVIR 30 MG CAPSULE PO SCH ×2 (10:03→20:24)
[2018-01-17] MEDS: ESCITALOPRAM 10 MG TABLET PO SCH (10:03)
[2018-01-17] MEDS: CLARITHROMYCIN 500 MG TABLET PO SCH ×2 (10:03→20:24)
[2018-01-17] MEDS: FLUTICASONE NASAL SPRAY NAS SCH (10:04)
[2018-01-17] MEDS: CYCLOSPORINE EYE EACHEYE SCH ×2 (10:04→20:23)
[2018-01-17] MEDS: cephALEXin 250 MG CAPSULE PO SCH ×2 (10:04→20:24)
[2018-01-17] MEDS: PANTOPRAZOLE 40 MG TABLET PO SCH ×2 (10:08→20:23)
--- NOTE | 2018-01-17 10:16 | ANESTHESIA ---
Pre-Anesthesia VS, & Labs - Diagnosis Diagnosis Gastrointestinal hemorrhage in an 82 year old male on aspirin and Plavix (as well as a daily PPI) - Procedure colonoscopy Vital Signs: Temp Pulse Resp BP Pulse Ox 36.5 C 83 18 140/97 H 95 01/17/18 09:00 01/17/18 09:00 01/17/18 09:00 01/17/18 09:00 01/17/18 09:00 Height 5 ft 7 in Weight (kg) 87 kg Body Mass Index 29.4 - Lab Results Current Lab Results: Laboratory Tests 01/17/18 05:05: Total Bilirubin 0.3, Direct Bilirubin 0.2, AST 19, ALT 14, Alkaline Phosphatase 75, Total Protein 4.7 L, Albumin 2.6 L, Globulin 2.1 01/17/18 05:05: Troponin I 0.04 01/17/18 05:05: Sodium 143, Potassium 3.6, Chloride 116 H, Carbon Dioxide 21, Anion Gap 6.0, BUN 18, Creatinine 1.7 H, Estimated GFR (MDRD) 39 L, Glucose 142 H, Calcium 8.6 01/17/18 05:05: WBC 7.5, RBC 2.48 L, Hgb 7.9 L, Hct 22.9 L, MCV 92.4, MCH 32.0 H , MCHC 34.6, RDW 16.9 H, Plt Count 259, MPV 6.6 L, Neut # (Auto) Not Reportable, Lymph # (Auto) Not Reportable, [place] # (Auto) Not Reportable, Eos # (Auto) Not Reportable, Baso # (Auto) Not Reportable, Absolute Nucleated RBC Not Reportable, Total Counted 100, Band Neuts % (Manual) 4, Abnorm Lymph % (Manual) 0, Nucleated RBC % Not Reportable, Neutrophils # (Manual) 5.3, Lymphocytes # (Manual) 1.1 L, Monocytes # (Manual) 0.3, Eosinophils # (Manual) 0.8 H, Basophils # (Manual) 0.0, Differential Comment MANUAL DIFFERENTIAL, Platelet Estimate NORMAL (130- 450,000), RBC Morph Micro Appear NORMAL APPEARANCE 01/16/18 20:20: Hgb 9.0 L, Hct 27.0 L 01/16/18 05:15: Magnesium 1.8 01/16/18 05:15: Sodium 140, Potassium 3.8, Chloride 115 H, Carbon Dioxide 22, Anion Gap 3.0 L, BUN 20, Creatinine 1.8 H, Estimated GFR (MDRD) 36 L, Glucose 127 H, Calcium 8.2 L 01/16/18 05:15: WBC 6.1, RBC 2.40 L, Hgb 7.6 L, Hct 22.4 L, MCV 93.4, MCH 31.6 H , MCHC 33.8, RDW 16.0 H, Plt Count 232, MPV 6.7 L, Neut # (Auto) Not Reportable, Lymph # (Auto) Not Reportable, [place] # (Auto) Not Reportable, Eos # (Auto) Not Reportable, Baso # (Auto) Not Reportable, Absolute Nucleated RBC Not Reportable, Total Counted 100, Band Neuts % (Manual) 6, Abnorm Lymph % (Manual) 0, Nucleated RBC % Not Reportable, Neutrophils # (Manual) 4.4, Lymphocytes # (Manual) 1.1 L, Monocytes # (Manual) 0.4, Eosinophils # (Manual) 0.2, Basophils # (Manual) 0.0, Differential Comment MANUAL DIFFERENTIAL, Platelet Estimate NORMAL (130- 450,000), RBC Morph Micro Appear NORMAL APPEARANCE 01/15/18 20:00: Hgb 8.1 L, Hct 23.9 L 01/15/18 13:04: Blood Type A NEGATIVE, Antibody Screen POSITIVE, Antibody Identification Anti-D, Crossmatch See Detail 01/15/18 13:04: Sodium 139, Potassium 3.8, Chloride 115 H, Carbon Dioxide 23, Anion Gap 1.0 L, BUN 27 H, Creatinine 1.8 H, Estimated GFR (MDRD) 36 L, Glucose 116 H, Calcium 8.0 L 01/15/18 13:04: Hgb 8.2 L, Hct 24.0 L 01/15/18 05:15: WBC 6.6, RBC 2.74 L, Hgb 8.8 L, Hct 25.8 L, MCV 94.2 H, MCH 32.0 H, MCHC 34.0, RDW 16.3 H, Plt Count 205, MPV 7.5, Neut # (Auto) Not Reportable, Lymph # (Auto) Not Reportable, [place] # (Auto) Not Reportable, Eos # (Auto) Not R eportable, Baso # (Auto) Not Reportable, Absolute Nucleated RBC Not Reportable, Total Counted 100, Band Neuts % (Manual) 15 H, Abnorm Lymph % (Manual) 0, Metamyelocytes % 1 H, Myelocytes % 1 H, Nucleated RBC % Not Reportable, Neutrophils # (Manual) 4.7, Lymphocytes # (Manual) 1.3 L, Monocytes # (Manual) 0.3, Eosinophils # (Manual) 0.1, Basophils # (Manual) 0.1, Differential Comment MANUAL DIFFERENTIAL, Platelet Estimate NORMAL (130-450,000), RBC Morph Micro Appear NORMAL APPEARANCE 01/14/18 20:55: Hgb 7.5 L, Hct 22.4 L 01/14/18 15:34: Hgb 9.2 L, Hct 26.8 L 01/14/18 15:34: Blood Type Recheck A NEGATIVE 01/14/18 08:35: Blood Type A NEGATIVE, Antibody Screen POSITIVE, Antibody Identification Anti-D, Crossmatch See Detail 01/14/18 08:35: PT 12.7 H, INR 1.1, APTT 28.1 01/14/18 08:35: Sodium 139, Potassium 4.1, Chloride 109, Carbon Dioxide 22, Anion Gap 8.0, BUN 34 H, Creatinine 2.0 H, Estimated GFR (MDRD) 32 L, Glucose 184 H, Calcium 8.7, Total Bilirubin 1.0, AST 21, ALT 19, Alkaline Phosphatase 103, Total Protein 5.2 L, Albumin 2.8 L, Globulin 2.4, Albumin/Globulin Ratio 1.2, Lipase 28 01/14/18 08:35: WBC 8.7, RBC 3.09 L, Hgb 10.1 L, Hct 30.0 L, MCV 97.0 H, MCH 32.7 H, MCHC 33.7, RDW 14.0, Plt Count 225, MPV 7.9, Neut # (Auto) 6.8 H, Lymph # (Auto) 1.1 L, [place] # (Auto) 0.6, Eos # (Auto) 0.2, Baso # (Auto) 0.0, Absolute Nucleated RBC 0.00, Nucleated RBC % 0.0 Fish Bones: 01/17/18 05:05 01/17/18 05:05 Home Medications and Allergies Active Medications Albuterol () 2.5 mg INH RTQ4H PRN PRN Reason: Wheezing Cephalexin (Keflex) 500 mg PO BID [facility] Last Admin: 01/17/18 10:04 Dose: 500 mg Clarithromycin (Biaxin) 500 mg PO BID [facility] Last Admin: 01/17/18 10:03 Dose: 500 mg Escitalopram Oxalate (Lexapro) 5 mg PO DAILY [facility] Last Admin: 01/17/18 10:03 Dose: 5 mg Fluticasone Propionate (Flonase) 1 sprays CLARK DAILY [facility] Last Admin: 01/17/18 10:04 Dose: 1 spr Guaifenesin/Codeine Phosphate (Robitussin Ac) 5 ml PO Q6HR PRN PRN Reason: Cough Dextrose/Sodium Chloride (D5ns) 1,000 mls @ 40 mls/hr IV .Q25H [facility] Last Admin: 01/17/18 08:38 Dose: 40 mls/hr Metronidazole (Flagyl) 500 mg PO TID [facility] Stop: 01/29/18 13:59 Last Admin: 01/17/18 05:25 Dose: 500 mg Mineral Oil (Cavilon) 1 applic TOP PRN PRN PRN Reason: Skin Care Nitroglycerin (Nitrostat) 0.4 mg SL Q5MIN PRN PRN Reason: Chest Pain Oseltamivir Phosphate (Tamiflu) 30 mg PO BID [facility] Last Admin: 01/17/18 10:03 Dose: 30 mg Pantoprazole Sodium (Protonix) 40 mg PO BID [facility] Last Admin: 01/17/18 10:08 Dose: 40 mg Cyclosporine [ (Restasis] Eye Drops) 1 each EACHEYE BID [facility] Last Admin: 01/17/18 10:04 Dose: 1 each Polyethylene Glycol (Miralax) 17 gm PO DAILY [facility] Last Admin: 01/17/18 07:25 Dose: Not Given Prochlorperazine Edisylate (Compazine Inj) 10 mg IVP Q6HR PRN PRN Reason: Nausea / Vomiting Last Admin: 01/16/18 11:25 Dose: 10 mg Sodium Chloride (Normal Saline Flush 0.9%) 10 ml IVP PRN PRN PRN Reason: NEEDED PER PROVIDER ORDERS Last Admin: 01/16/18 05:19 Dose: 10 ml Sodium Chloride (Normal Saline Flush 0.9%) 10 ml IVP 0100,0900,1700 [facility] Last Admin: 01/17/18 10:04 Dose: 10 ml Atorvastatin Calcium [Lipitor] 80 mg PO DAILY 02/02/13 Clopidogrel [Plavix] 75 mg PO DAILY 02/02/13 Fluticasone [Flonase] 1 sprays CLARK DAILY 02/02/13 Furosemide [Lasix] 30 mg PO DAILY 02/02/13 Losartan [Cozaar] 25 mg PO DAILY 02/02/13 Isosorbide Mononitrate [Isosorbide Mononitrate ER] 60 mg PO DAILY 03/29/14 Albuterol Sulfate [Proair Hfa Inhaler] 2 puffs INH Q4H PRN 01/09/18 Aspirin [Jessamine Aspirin EC] 81 mg PO DAILY 01/09/18 Azelastine HCl 2 spray CLARK BID PRN 01/09/18 Carvedilol [Coreg] 3.125 mg PO DAILY 01/09/18 Cholecalciferol [Vitamin D3] 5,000 unit PO DAILY 01/09/18 Cyclosporine [Restasis] 1 each EACHEYE BID 01/09/18 Escitalopram Oxalate [Lexapro] 5 mg PO DAILY 01/09/18 Esomeprazole Magnesium [Nexium 24Hr] 40 mg PO BID 01/09/18 Folic Acid 2 mg PO QPM 01/09/18 Folic Acid 3 mg PO DAILY 01/09/18 Nitroglycerin [Nitrostat] 0.4 mg SL Q5MIN PRN 01/09/18 Allergies/Adverse Reactions: Allergies Allergy/AdvReac Type Severity Reaction Status Date / Time Penicillins AdvReac Severe passed out Verified 01/14/18 08:33 codeine [Codeine] AdvReac Intermediate gi problems Verified 01/14/18 08:33 onion family Allergy Emesis Uncoded 01/15/18 11:00 Anes History & Medical History - Anesthetic History Anesthesia Complications: reports: No previous complications - Medical History Cardiovascular: reports: Hypertension, High cholesterol, Coronary artery disease, [place], Valve disorder Pulmonary: reports: Pneumonia, Sleep apnea, CPAP use Gastrointestinal: reports: None Urinary: reports: Renal insuffiency Neuro: reports: None Musculoskeletal: reports: None Endocrine/Autoimmune: reports: None Blood Disorders: reports: None Skin: reports: Eczema, Psoriasis Smoking Status: Never smoker - Surgical History General: Cholecystectomy, Appendectomy, Hiatal hernia repair Eyes Ears Nose Throat (EENT): Tonsil/Adenoidectomy Cardiothoracic: CABG, Coronary stent, Other Dermatologic: Skin cancer surgery Exam Dental: Dentures full Upper, Dentures full Lower Plan ASA classification: 3-Severe systemic disease Is this case an emergency?: Yes
--- NOTE | 2018-01-17 10:23 | ANESTHESIA ---
Pre-Anesthesia VS, & Labs - Diagnosis Diagnosis Gastrointestinal hemorrhage in an 82 year old male on aspirin and Plavix (as well as a daily PPI) - Procedure colonoscopy Vital Signs: Temp Pulse Resp BP Pulse Ox 36.5 C 83 18 140/97 H 95 01/17/18 09:00 01/17/18 09:00 01/17/18 09:00 01/17/18 09:00 01/17/18 09:00 Height 5 ft 7 in Weight (kg) 87 kg Body Mass Index 29.4 - NPO >8 hours - Lab Results Current Lab Results: Laboratory Tests 01/17/18 05:05: Total Bilirubin 0.3, Direct Bilirubin 0.2, AST 19, ALT 14, Alkaline Phosphatase 75, Total Protein 4.7 L, Albumin 2.6 L, Globulin 2.1 01/17/18 05:05: Troponin I 0.04 01/17/18 05:05: Sodium 143, Potassium 3.6, Chloride 116 H, Carbon Dioxide 21, Anion Gap 6.0, BUN 18, Creatinine 1.7 H, Estimated GFR (MDRD) 39 L, Glucose 142 H, Calcium 8.6 01/17/18 05:05: WBC 7.5, RBC 2.48 L, Hgb 7.9 L, Hct 22.9 L, MCV 92.4, MCH 32.0 H , MCHC 34.6, RDW 16.9 H, Plt Count 259, MPV 6.6 L, Neut # (Auto) Not Reportable, Lymph # (Auto) Not Reportable, [place] # (Auto) Not Reportable, Eos # (Auto) Not Reportable, Baso # (Auto) Not Reportable, Absolute Nucleated RBC Not Reportable, Total Counted 100, Band Neuts % (Manual) 4, Abnorm Lymph % (Manual) 0, Nucleated RBC % Not Reportable, Neutrophils # (Manual) 5.3, Lymphocytes # (Manual) 1.1 L, Monocytes # (Manual) 0.3, Eosinophils # (Manual) 0.8 H, Basophils # (Manual) 0.0, Differential Comment MANUAL DIFFERENTIAL, Platelet Estimate NORMAL (130- 450,000), RBC Morph Micro Appear NORMAL APPEARANCE 01/16/18 20:20: Hgb 9.0 L, Hct 27.0 L 01/16/18 05:15: Magnesium 1.8 01/16/18 05:15: Sodium 140, Potassium 3.8, Chloride 115 H, Carbon Dioxide 22, Anion Gap 3.0 L, BUN 20, Creatinine 1.8 H, Estimated GFR (MDRD) 36 L, Glucose 127 H, Calcium 8.2 L 01/16/18 05:15: WBC 6.1, RBC 2.40 L, Hgb 7.6 L, Hct 22.4 L, MCV 93.4, MCH 31.6 H , MCHC 33.8, RDW 16.0 H, Plt Count 232, MPV 6.7 L, Neut # (Auto) Not Reportable, Lymph # (Auto) Not Reportable, [place] # (Auto) Not Reportable, Eos # (Auto) Not Reportable, Baso # (Auto) Not Reportable, Absolute Nucleated RBC Not Reportable, Total Counted 100, Band Neuts % (Manual) 6, Abnorm Lymph % (Manual) 0, Nucleated RBC % Not Reportable, Neutrophils # (Manual) 4.4, Lymphocytes # (Manual) 1.1 L, Monocytes # (Manual) 0.4, Eosinophils # (Manual) 0.2, Basophils # (Manual) 0.0, Differential Comment MANUAL DIFFERENTIAL, Platelet Estimate NORMAL (130- 450,000), RBC Morph Micro Appear NORMAL APPEARANCE 01/15/18 20:00: Hgb 8.1 L, Hct 23.9 L 01/15/18 13:04: Blood Type A NEGATIVE, Antibody Screen POSITIVE, Antibody Identification Anti-D, Crossmatch See Detail 01/15/18 13:04: Sodium 139, Potassium 3.8, Chloride 115 H, Carbon Dioxide 23, Anion Gap 1.0 L, BUN 27 H, Creatinine 1.8 H, Estimated GFR (MDRD) 36 L, Glucose 116 H, Calcium 8.0 L 01/15/18 13:04: Hgb 8.2 L, Hct 24.0 L 01/15/18 05:15: WBC 6.6, RBC 2.74 L, Hgb 8.8 L, Hct 25.8 L, MCV 94.2 H, MCH 32.0 H, MCHC 34.0, RDW 16.3 H, Plt Count 205, MPV 7.5, Neut # (Auto) Not Reportable, Lymph # (Auto) Not Reportable, [place] # (Auto) Not Reportable, Eos # (Auto) Not Reportable, Baso # (Auto) Not Reportable, Absolute Nucleated RBC Not Reportable, Total Counted 100, Band Neuts % (Manual) 15 H, Abnorm Lymph % (Manual) 0, Metamyelocytes % 1 H, Myelocytes % 1 H, Nucleated RBC % Not Reportable, Neutrophils # (Manual) 4.7, Lymphocytes # (Manual) 1.3 L, Monocytes # (Manual) 0.3, Eosinophils # (Manual) 0.1, Basophils # (Manual) 0.1, Differential Comment MANUAL DIFFERENTIAL, Platelet Estimate NORMAL (130-450,000), RBC Morph Micro Appear NORMAL APPEARANCE 01/14/18 20:55: Hgb 7.5 L, Hct 22.4 L 01/14/18 15:34: Hgb 9.2 L, Hct 26.8 L 01/14/18 15:34: Blood Type Recheck A NEGATIVE 01/14/18 08:35: Blood Type A NEGATIVE, Antibody Screen POSITIVE, Antibody Identification Anti-D, Crossmatch See Detail 01/14/18 08:35: PT 12.7 H, INR 1.1, APTT 28.1 01/14/18 08:35: Sodium 139, Potassium 4.1, Chloride 109, Carbon Dioxide 22, Anion Gap 8.0, BUN 34 H, Creatinine 2.0 H, Estimated GFR (MDRD) 32 L, Glucose 184 H, Calcium 8.7, Total Bilirubin 1.0, AST 21, ALT 19, Alkaline Phosphatase 103, Total Protein 5.2 L, Albumin 2.8 L, Globulin 2.4, Albumin/Globulin Ratio 1.2, Lipase 28 01/14/18 08:35: WBC 8.7, RBC 3.09 L, Hgb 10.1 L, Hct 30.0 L, MCV 97.0 H, MCH 32.7 H, MCHC 33.7, RDW 14.0, Plt Count 225, MPV 7.9, Neut # (Auto) 6.8 H, Lymph # (Auto) 1.1 L, [place] # (Auto) 0.6, Eos # (Auto) 0.2, Baso # (Auto) 0.0, Absolute Nucleated RBC 0.00, Nucleated RBC % 0.0 Fish Bones: 01/17/18 05:05 01/17/18 05:05 Home Medications and Allergies Active Medications Albuterol () 2.5 mg INH RTQ4H PRN PRN Reason: Wheezing Cephalexin (Keflex) 500 mg PO BID [facility] Last Admin: 01/17/18 10:04 Dose: 500 mg Clarithromycin (Biaxin) 500 mg PO BID [facility] Last Admin: 01/17/18 10:03 Dose: 500 mg Escitalopram Oxalate (Lexapro) 5 mg PO DAILY [facility] Last Admin: 01/17/18 10:03 Dose: 5 mg Fluticasone Propionate (Flonase) 1 sprays CLARK DAILY [facility] Last Admin: 01/17/18 10:04 Dose: 1 spr Guaifenesin/Codeine Phosphate (Robitussin Ac) 5 ml PO Q6HR PRN PRN Reason: Cough Dextrose/Sodium Chloride (D5ns) 1,000 mls @ 40 mls/hr IV .Q25H [facility] Last Admin: 01/17/18 08:38 Dose: 40 mls/hr Metronidazole (Flagyl) 500 mg PO TID [facility] Stop: 01/29/18 13:59 Last Admin: 01/17/18 05:25 Dose: 500 mg Mineral Oil (Cavilon) 1 applic TOP PRN PRN PRN Reason: Skin Care Nitroglycerin (Nitrostat) 0.4 mg SL Q5MIN PRN PRN Reason: Chest Pain Oseltamivir Phosphate (Tamiflu) 30 mg PO BID [facility] Last Admin: 01/17/18 10:03 Dose: 30 mg Pantoprazole Sodium (Protonix) 40 mg PO BID [facility] Last Admin: 01/17/18 10:08 Dose: 40 mg Cyclosporine [ (Restasis] Eye Drops) 1 each EACHEYE BID [facility] Last Admin: 01/17/18 10:04 Dose: 1 each Polyethylene Glycol (Miralax) 17 gm PO DAILY [facility] Last Admin: 01/17/18 07:25 Dose: Not Given Prochlorperazine Edisylate (Compazine Inj) 10 mg IVP Q6HR PRN PRN Reason: Nausea / Vomiting Last Admin: 01/16/18 11:25 Dose: 10 mg Sodium Chloride (Normal Saline Flush 0.9%) 10 ml IVP PRN PRN PRN Reason: NEEDED PER PROVIDER ORDERS Last Admin: 01/16/18 05:19 Dose: 10 ml Sodium Chloride (Normal Saline Flush 0.9%) 10 ml IVP 0100,0900,1700 DONIS Last Admin: 01/17/18 10:04 Dose: 10 ml Atorvastatin Calcium [Lipitor] 80 mg PO DAILY 02/02/13 Clopidogrel [Plavix] 75 mg PO DAILY 02/02/13 Fluticasone [Flonase] 1 sprays CLARK DAILY 02/02/13 Furosemide [Lasix] 30 mg PO DAILY 02/02/13 Losartan [Cozaar] 25 mg PO DAILY 02/02/13 Isosorbide Mononitrate [Isosorbide Mononitrate ER] 60 mg PO DAILY 03/29/14 Albuterol Sulfate [Proair Hfa Inhaler] 2 puffs INH Q4H PRN 01/09/18 Aspirin [[place] Aspirin EC] 81 mg PO DAILY 01/09/18 Azelastine HCl 2 spray CLARK BID PRN 01/09/18 Carvedilol [Coreg] 3.125 mg PO DAILY 01/09/18 Cholecalciferol [Vitamin D3] 5,000 unit PO DAILY 01/09/18 Cyclosporine [Restasis] 1 each EACHEYE BID 01/09/18 Escitalopram Oxalate [Lexapro] 5 mg PO DAILY 01/09/18 Esomeprazole Magnesium [Nexium 24Hr] 40 mg PO BID 01/09/18 Folic Acid 2 mg PO QPM 01/09/18 Folic Acid 3 mg PO DAILY 01/09/18 Nitroglycerin [Nitrostat] 0.4 mg SL Q5MIN PRN 01/09/18 Allergies/Adverse Reactions: Allergies Allergy/AdvReac Type Severity Reaction Status Date / Time Penicillins AdvReac Severe passed out Verified 01/14/18 08:33 codeine [Codeine] AdvReac Intermediate gi problems Verified 01/14/18 08:33 onion family Allergy Emesis Uncoded 01/15/18 11:00 Anes History & Medical History - Anesthetic History Anesthesia Complications: reports: No previous complications, Slow wake-up Family history of Anesthesia Complications: Denies Family history of Malignant Hyperthermia: Denies - Medical History Cardiovascular: reports: Hypertension, High cholesterol, Coronary artery disease, NM, Valve disorder Pulmonary: reports: Pneumonia, Sleep apnea, CPAP use Gastrointestinal: reports: None Urinary: reports: Renal insuffiency Neuro: reports: None Musculoskeletal: reports: None Endocrine/Autoimmune: reports: None Blood Disorders: reports: None Skin: reports: Eczema, Psoriasis Smoking Status: Never smoker - Surgical History General: Cholecystectomy, Appendectomy, Hiatal hernia repair Eyes Ears Nose Throat (EENT): Tonsil/Adenoidectomy Cardiothoracic: CABG, Coronary stent, Other Dermatologic: Skin cancer surgery Exam General: Alert, Oriented x3, Cooperative, No acute distress Dental: Dentures full Upper, Dentures full Lower Mouth Openin Fingerbreadth Neck Mobility: Normal Mallampati classification: II Thyromental Distance: 4-6 cm Respiratory: Lungs clear, Normal breath sounds, No respiratory distress, No accessory muscle use Cardiovascular: Normal S1, Normal S2 Mental/Cognitive Status: Alert/Oriented X3, Normal for patient Cognitive Status: Within normal limits Plan Anesthesia Type: MAC Consent for Procedure(s) Verified and Reviewed: No Code Status: Attempt Resuscitation ASA classification: 3-Severe systemic disease Is this case an emergency?: No
[2018-01-17] MEDS ORDERED: SODIUM CHLORIDE 0.9% 500 ML IV ONE (11:29)
[2018-01-17] MEDS: SODIUM CHLORIDE FLUSH 0.9% 10 ML SYRINGE IVP PRN (12:38)
--- NOTE | 2018-01-17 14:40 | PROVIDER PROGRESS NOTE ---
Subjective - General Admit Date: 01/14/18 Procedure Date: 01/17/18 Post Op Days: 0 Procedure Performed: None yet. - Review of Systems General: positive: No symptoms HEENT: positive: No symptoms Pulmonary: positive: No symptoms Cardiovascular: positive: Chest pain Gastrointestinal: positive: No symptoms Genitourinary: positive: No symptoms Musculoskeletal: positive: No symptoms Skin: positive: No symptoms Objective - Patient Data Reviewed Vital Signs: Yes Vital Signs: Vital Signs x48h Temp Pulse Pulse Resp BP BP Pulse Ox 01/17/18 14:07 36.7 C 77 18 130/57 L 01/17/18 12:17 36.7 C 79 18 144/83 H 01/17/18 11:32 36.7 C 87 16 154/76 H 01/17/18 09:00 36.5 C 83 18 140/97 H 95 Weight: Weight 01/15/18 01/16/18 01/17/18 23:59 23:59 23:59 Weight (kg) 85.5 kg 87 kg Intake & Output: Intake and Output Totals x24h 01/15/18 01/16/18 01/17/18 23:59 23:59 23:59 Intake Total 4490.167 3526.667 1633.833 Output Total 1425 2000 1180 Balance 3065.167 1526.667 453.833 - Lab Results Lab Results: 01/17/18 05:05 01/17/18 05:05 Other Lab Results: Lab Results x24hrs 01/17/18 01/17/18 01/17/18 Range/Units 12:25 05:05 05:05 WBC (4.8-10.8) x10^3/uL RBC (4.70-6.10) 10^6/uL Hgb (14.0-18.0) g/dL Hct (42.0-52.0) % MCV (80.0-94.0) fL MCH (27.0-31.0) pg MCHC (32.0-36.0) g/dL RDW (12.0-15.0) % Plt Count (130-450) 10^3/uL MPV (7.4-11.4) fL Neut # (Auto) Lymph # (Auto) [place] # (Auto) Eos # (Auto) Baso # (Auto) Absolute Nucleated RBC Total Counted Band Neuts % (Manual) (0 - 10) % Abnorm Lymph % (Manual) % Nucleated RBC % Neutrophils # (Manual) (1.5-6.6) 10^3/uL Lymphocytes # (Manual) (1.5-3.5) 10^3/uL Monocytes # (Manual) (0.0-1.0) 10^3/uL Eosinophils # (Manual) (0-0.7) 10^3/uL Basophils # (Manual) (0-0.1) 10^3/uL Differential Comment Platelet Estimate (NORMAL) RBC Morph Micro Appear (NORMAL) Sodium (135-145) mmol/L Potassium (3.5-5.0) mmol/L Chloride (101-111) mmol/L Carbon Dioxide (21-32) mmol/L Anion Gap (6-13) BUN (6-20) mg/dL Creatinine (0.6-1.2) mg/dL Estimated GFR (MDRD) (>89) Glucose (70-100) mg/dL POC Whole Bld Glucose (70 - 100) mg/dL Calcium (8.5-10.3) mg/dL Total Bilirubin 0.3 (0.2-1.0) mg/dL Direct Bilirubin 0.2 (0.1-0.5) mg/dL AST 19 (10-42) IU/L ALT 14 (10-60) IU/L Alkaline Phosphatase 75 (42-121) IU/L Troponin I 0.04 0.04 (<0.49) ng/mL Total Protein 4.7 L (6.7-8.2) g/dL Albumin 2.6 L (3.2-5.5) g/dL Globulin 2.1 (2.1-4.2) g/dL Blood Type Antibody Screen Antibody Identification Crossmatch 01/17/18 01/17/18 01/16/18 Range/Units 05:05 05:05 20:20 WBC 7.5 (4.8-10.8) x10^3/uL RBC 2.48 L (4.70-6.10) 10^6/uL Hgb 7.9 L 9.0 L (14.0-18.0) g/dL Hct 22.9 L 27.0 L (42.0-52.0) % MCV 92.4 (80.0-94.0) fL MCH 32.0 H (27.0-31.0) pg MCHC 34.6 (32.0-36.0) g/dL RDW 16.9 H (12.0-15.0) % Plt Count 259 (130-450) 10^3/uL MPV 6.6 L (7.4-11.4) fL Neut # (Auto) Not Reportable Lymph # (Auto) Not Reportable [place] # (Auto) Not Reportable Eos # (Auto) Not Reportable Baso # (Auto) Not Reportable Absolute Nucleated RBC Not Reportable Total Counted 100 Band Neuts % (Manual) 4 (0 - 10) % Abnorm Lymph % (Manual) 0 % Nucleated RBC % Not Reportable Neutrophils # (Manual) 5.3 (1.5-6.6) 10^3/uL Lymphocytes # (Manual) 1.1 L (1.5-3.5) 10^3/uL Monocytes # (Manual) 0.3 (0.0-1.0) 10^3/uL Eosinophils # (Manual) 0.8 H (0-0.7) 10^3/uL Basophils # (Manual) 0.0 (0-0.1) 10^3/uL Differential Comment MANUAL DIFFERENTIAL Platelet Estimate NORMAL (130-450,000) (NORMAL) RBC Morph Micro Appear NORMAL APPEARANCE (NORMAL) Sodium 143 (135-145) mmol/L Potassium 3.6 (3.5-5.0) mmol/L Chloride 116 H (101-111) mmol/L Carbon Dioxide 21 (21-32) mmol/L Anion Gap 6.0 (6-13) BUN 18 (6-20) mg/dL Creatinine 1.7 H (0.6-1.2) mg/dL Estimated GFR (MDRD) 39 L (>89) Glucose 142 H (70-100) mg/dL POC Whole Bld Glucose (70 - 100) mg/dL Calcium 8.6 (8.5-10.3) mg/dL Total Bilirubin (0.2-1.0) mg/dL Direct Bilirubin (0.1-0.5) mg/dL AST (10-42) IU/L ALT (10-60) IU/L Alkaline Phosphatase (42-121) IU/L Troponin I (<0.49) ng/mL Total Protein (6.7-8.2) g/dL Albumin (3.2-5.5) g/dL Globulin (2.1-4.2) g/dL Blood Type Antibody Screen Antibody Identification Crossmatch 01/15/18 01/14/18 Range/Units 13:04 17:56 WBC (4.8-10.8) x10^3/uL RBC (4.70-6.10) 10^6/uL Hgb (14.0-18.0) g/dL Hct (42.0-52.0) % MCV (80.0-94.0) fL MCH (27.0-31.0) pg MCHC (32.0-36.0) g/dL RDW (12.0-15.0) % Plt Count (130-450) 10^3/uL MPV (7.4-11.4) fL Neut # (Auto) Lymph # (Auto) [place] # (Auto) Eos # (Auto) Baso # (Auto) Absolute Nucleated RBC Total Counted Band Neuts % (Manual) (0 - 10) % Abnorm Lymph % (Manual) % Nucleated RBC % Neutrophils # (Manual) (1.5-6.6) 10^3/uL Lymphocytes # (Manual) (1.5-3.5) 10^3/uL Monocytes # (Manual) (0.0-1.0) 10^3/uL Eosinophils # (Manual) (0-0.7) 10^3/uL Basophils # (Manual) (0-0.1) 10^3/uL Differential Comment Platelet Estimate (NORMAL) RBC Morph Micro Appear (NORMAL) Sodium (135-145) mmol/L Potassium (3.5-5.0) mmol/L Chloride (101-111) mmol/L Carbon Dioxide (21-32) mmol/L Anion Gap (6-13) BUN (6-20) mg/dL Creatinine (0.6-1.2) mg/dL Estimated GFR (MDRD) (>89) Glucose (70-100) mg/dL POC Whole Bld Glucose 154 H (70 - 100) mg/dL Calcium (8.5-10.3) mg/dL Total Bilirubin (0.2-1.0) mg/dL Direct Bilirubin (0.1-0.5) mg/dL AST (10-42) IU/L ALT (10-60) IU/L Alkaline Phosphatase (42-121) IU/L Troponin I (<0.49) ng/mL Total Protein (6.7-8.2) g/dL Albumin (3.2-5.5) g/dL Globulin (2.1-4.2) g/dL Blood Type A NEGATIVE Antibody Screen POSITIVE Antibody Identification Anti-D Crossmatch See Detail - Current Medications Current Medications: Current Medications Generic Name Dose Route Start Last Admin Trade Name Freq PRN Reason Stop Dose Admin Cephalexin 500 mg 01/14/18 21:00 01/17/18 10:04 Keflex PO 500 mg BID DONIS Administration Clarithromycin 500 mg 01/15/18 09:00 01/17/18 10:03 Biaxin PO 500 mg BID DONIS Administration Escitalopram Oxalate 5 mg 01/15/18 09:00 01/17/18 10:03 Lexapro PO 5 mg DAILY DONIS Administration Fluticasone Propionate 1 sprays 01/15/18 09:00 01/17/18 10:04 Flonase CLARK 1 spr DAILY DONIS Administration Dextrose/Sodium Chloride 1,000 mls @ 40 mls/hr 01/17/18 08:09 01/17/18 14:08 D5ns IV 40 mls/hr .Q25H DONIS Infusion Metronidazole 500 mg 01/15/18 14:00 01/17/18 05:25 Flagyl PO 01/29/18 13:59 500 mg TID DONIS Administration Oseltamivir Phosphate 30 mg 01/14/18 21:00 01/17/18 10:03 Tamiflu PO 30 mg BID DONIS Administration Pantoprazole Sodium 40 mg 01/15/18 09:00 01/17/18 10:08 Protonix PO 40 mg BID DONIS Administration Cyclosporine [ 1 each 01/14/18 21:00 01/17/18 10:04 Restasis] Eye Drops EACHEYE 1 each BID DONIS Administration Polyethylene Glycol 17 gm 01/15/18 09:00 01/17/18 07:25 Miralax PO Not Given DAILY DONIS Prochlorperazine Edisylate 10 mg 01/14/18 11:20 01/16/18 11:25 Compazine Inj IVP 10 mg Q6HR PRN Administration Nausea / Vomiting Sodium Chloride 10 ml 01/14/18 11:20 01/17/18 12:38 Normal Saline Flush 0.9% IVP 10 ml PRN PRN Administration NEEDED PER PROVIDER ORDERS Sodium Chloride 10 ml 01/14/18 17:00 01/17/18 10:04 Normal Saline Flush 0.9% IVP 10 ml 0100,0900,1700 DONIS Administration - Physical Exam General Appearance: positive: No acute distress Eyes Bilateral: positive: No lid inflammation, Conjunctivae nml, No scleral icterus ENT: positive: Dry mucous membranes Neck: positive: Trachea midline Respiratory: positive: Chest non-tender, No respiratory distress, Breath sounds nml Cardiovascular: positive: Regular rate & rhythm Abdomen: positive: Non-tender, No organomegaly, Nml bowel sounds, No distention Skin: positive: Color nml Extremities: positive: Non-tender, Nml appearance Neurologic/Psychiatric: positive: Oriented x3 Impression/Plan - Problem List Problem List: Continued gastrointestinal bleeding. This is evidenced by his decreasing hemoglobin and hematocrit requiring repeated transfusions. This morning he complained of some chest pain. This was concerning and had not been seen previously. Workup revealed that there was no leak of cardiac enzymes and unc hanged EKG. Yesterday the patient received a prep in preparation for a colonoscopy. His bleeding study was negative. I explained to the patient he is a conundrum. Verbal and written consent was obtained in preparation for his colonoscopy detailing the risks and benefits as well as the procedure in detail.
[2018-01-17] MEDS ORDERED: LACTATED RINGERS 1,000 ML IV ONE ×2 (14:45→15:23)
[2018-01-17] MEDS ORDERED: DEXTROSE 5% 1,000 ML IV ONE (15:15)
[2018-01-17] MEDS ORDERED: LIDOCAINE-MPF 2% 5 ML VIAL IM ONE (15:35)
[2018-01-17] MEDS ORDERED: ePHEDrine 50 MG/ML VIAL IVP ONE (15:35)
[2018-01-17] MEDS ORDERED: PROPOFOL 200 MG/20 ML VIAL IVP ONE (15:35)
--- NOTE | 2018-01-17 15:58 | PROVIDER PROGRESS NOTE ---
Assessment/Plan - Problem List (1) GI bleed Qualifiers: GI bleed type/associated pathology: gastritis Assessment/Plan: Etiology still unclear, even after colonoscopy done today. Will obtain a CT of abdomen (2) Helicobacter pylori antibody positive Assessment/Plan: Pt on PPI, Biaxin and Flagyl (3) Anemia Qualifiers: Anemia type: unspecified cause Assessment/Plan: Hgb had dropped again this am, he needed another U of blood transfused before anesthesia for colonoscopy. Follow H/H q12 h (4) Acute renal failure superimposed on stage 3 chronic kidney disease Qualifiers: Acute renal failure type: unspecified Qualified Code(s): N17.9 - Acute kidney failure, unspecified; N18.3 - Chronic kidney disease, stage 3 (moderate) Assessment/Plan: Abnormal but stable creat (6) HONG on CPAP Assessment/Plan: CPAP ordered (7) CAP (community acquired pneumonia) Qualifiers: Laterality: unspecified laterality Qualified Code(s): J18.9 - Pneumonia, unspecified organism Assessment/Plan: Pt on Keflex for his previous CAP. (8) Influenza A Assessment/Plan: Pt on Tamiflu for his recent Influenza A. LFTs are stable - Current Meds Current Meds: Current Medications Generic Name Dose Route Start Last Admin Trade Name Freq PRN Reason Stop Dose Admin Cephalexin 500 mg 01/14/18 21:00 01/17/18 10:04 Keflex PO 500 mg BID DONIS Administration Clarithromycin 500 mg 01/15/18 09:00 01/17/18 10:03 Biaxin PO 500 mg BID DONIS Administration Escitalopram Oxalate 5 mg 01/15/18 09:00 01/17/18 10:03 Lexapro PO 5 mg DAILY DONIS Administration Fluticasone Propionate 1 sprays 01/15/18 09:00 01/17/18 10:04 Flonase CLARK 1 spr DAILY DONIS Administration Dextrose/Sodium Chloride 1,000 mls @ 40 mls/hr 01/17/18 08:09 01/17/18 14:08 D5ns IV 40 mls/hr .Q25H DONIS Infusion Metronidazole 500 mg 01/15/18 14:00 01/17/18 05:25 Flagyl PO 01/29/18 13:59 500 mg TID DONIS Administration Oseltamivir Phosphate 30 mg 01/14/18 21:00 01/17/18 10:03 Tamiflu PO 30 mg BID DONIS Administration Pantoprazole Sodium 40 mg 01/15/18 09:00 01/17/18 10:08 Protonix PO 40 mg BID DONIS Administration Cyclosporine [ 1 each 01/14/18 21:00 01/17/18 10:04 Restasis] Eye Drops EACHEYE 1 each BID DONIS Administration Polyethylene Glycol 17 gm 01/15/18 09:00 01/17/18 07:25 Miralax PO Not Given DAILY DONIS Prochlorperazine Edisylate 10 mg 01/14/18 11:20 01/16/18 11:25 Compazine Inj IVP 10 mg Q6HR PRN Administration Nausea / Vomiting Sodium Chloride 10 ml 01/14/18 11:20 01/17/18 12:38 Normal Saline Flush 0.9% IVP 10 ml PRN PRN Administration NEEDED PER PROVIDER ORDERS Sodium Chloride 10 ml 01/14/18 17:00 01/17/18 10:04 Normal Saline Flush 0.9% IVP 10 ml 0100,0900,1700 DONIS Administration - Lab Result Fish Bone Diagrams: 01/17/18 05:05 01/17/18 05:05 - Additional Planning My Orders: My Active Orders 01/17/18 08:09 Dextrose 5%-0.9% NaCl [D5ns] 1,000 ml IV 40 mls/hr Subjective - Subjective Patient Reports: Chest Pain, Other (Pt awoke at 4:30 am due to noise, at 5 am had CP, told [employer], it was resolved by the time a charge nurse was made aware.) Objective Vital Signs: Vital Signs - 24 hr 01/16/18 01/16/18 01/16/18 17:05 17:42 20:27 Temperature 36.7 C 36.5 C 36.9 C Heart Rate 68 Heart Rate [ 73 69 Brachial] Respiratory 20 19 24 Rate Blood Pressure 138/65 H Blood Pressure 128/60 132/58 H [Right Brachial artery] O2 Saturation 100 94 01/16/18 01/17/18 01/17/18 23:50 05:10 09:00 Temperature 36.7 C 36.9 C 36.5 C Heart Rate Heart Rate [ 81 86 83 Brachial] Respiratory 20 20 18 Rate Blood Pressure Blood Pressure 141/71 H 154/71 H 140/97 H [Right Brachial artery] O2 Saturation 100 100 95 01/17/18 01/17/18 01/17/18 11:32 12:17 14:07 Temperature 36.7 C 36.7 C 36.7 C Heart Rate 87 79 77 Heart Rate [ Brachial] Respiratory 16 18 18 Rate Blood Pressure 154/76 H 144/83 H 130/57 L Blood Pressure [Right Brachial artery] O2 Saturation 01/17/18 01/17/18 01/17/18 15:15 15:25 15:30 Temperature 36.1 C L 36.1 C L Heart Rate 63 84 77 Heart Rate [ Brachial] Respiratory 18 18 18 Rate Blood Pressure 88/60 L 105/57 L 111/61 Blood Pressure [Right Brachial artery] O2 Saturation 99 100 99 01/17/18 01/17/18 15:39 15:47 Temperature 36.2 C L 36.2 C L Heart Rate 81 76 Heart Rate [ Brachial] Respiratory 16 16 Rate Blood Pressure 109/60 119/59 L Blood Pressure [Right Brachial artery] O2 Saturation 97 99 Oxygen O2 Source [Without Activity] Room air O2 Source Room air I&O (Last 24 Hrs): Intake and Output Totals x24h 01/15/18 01/16/18 01/17/18 23:59 23:59 23:59 Intake Total 4490.167 3526.667 1633.833 Output Total 1425 2000 1180 Balance 3065.167 1526.667 453.833 General: Alert, Oriented x3 HEENT: Mucous membr. moist/pink, Other (Pale) Neck: Supple Neuro: Alert, Non Focal Cardiovascular: Regular rate, No murmurs Respiratory: No respiratory distress, Breath sounds nml Abdomen: Soft Extremities: No edema - Results Results: Laboratory Results WBC 7.5 x10^3/uL (4.8-10.8) 01/17/18 05:05 RBC 2.48 10^6/uL (4.70-6.10) L 01/17/18 05:05 Hgb 7.9 g/dL (14.0-18.0) L 01/17/18 05:05 Hct 22.9 % (42.0-52.0) L 01/17/18 05:05 MCV 92.4 fL (80.0-94.0) 01/17/18 05:05 MCH 32.0 pg (27.0-31.0) H 01/17/18 05:05 MCHC 34.6 g/dL (32.0-36.0) 01/17/18 05:05 RDW 16.9 % (12.0-15.0) H 01/17/18 05:05 Plt Count 259 10^3/uL (130-450) 01/17/18 05:05 MPV 6.6 fL (7.4-11.4) L 01/17/18 05:05 Neut # (Auto) Not Reportable 01/17/18 05:05 Lymph # (Auto) Not Reportable 01/17/18 05:05 [place] # (Auto) Not Reportable 01/17/18 05:05 Eos # (Auto) Not Reportable 01/17/18 05:05 Baso # (Auto) Not Reportable 01/17/18 05:05 Absolute Nucleated RBC Not Reportable 01/17/18 05:05 Total Counted 100 01/17/18 05:05 Band Neuts % (Manual) 4 % (0-10) 01/17/18 05:05 Abnorm Lymph % (Manual) 0 % 01/17/18 05:05 Metamyelocytes % 1 % (-0) H 01/15/18 05:15 Myelocytes % 1 % (-0) H 01/15/18 05:15 Nucleated RBC % Not Reportable 01/17/18 05:05 Neutrophils # (Manual) 5.3 10^3/uL (1.5-6.6) 01/17/18 05:05 Lymphocytes # (Manual) 1.1 10^3/uL (1.5-3.5) L 01/17/18 05:05 Monocytes # (Manual) 0.3 10^3/uL (0.0-1.0) 01/17/18 05:05 Eosinophils # (Manual) 0.8 10^3/uL (0-0.7) H 01/17/18 05:05 Basophils # (Manual) 0.0 10^3/uL (0-0.1) 01/17/18 05:05 Differential Comment MANUAL DIFFERENTIAL 01/17/18 05:05 Platelet Estimate NORMAL (130-450,000) (NORMAL) 01/17/18 05:05 RBC Morph Micro Appear NORMAL APPEARANCE (NORMAL) 01/17/18 05:05 PT 12.7 secs (9.9-12.6) H 01/14/18 08:35 INR 1.1 (0.8-1.2) 01/14/18 08:35 APTT 28.1 secs (24.9-33.3) 01/14/18 08:35 Sodium 143 mmol/L (135-145) 01/17/18 05:05 Potassium 3.6 mmol/L (3.5-5.0) 01/17/18 05:05 Chloride 116 mmol/L (101-111) H 01/17/18 05:05 Carbon Dioxide 21 mmol/L (21-32) 01/17/18 05:05 Anion Gap 6.0 (6-13) 01/17/18 05:05 BUN 18 mg/dL (6-20) 01/17/18 05:05 Creatinine 1.7 mg/dL (0.6-1.2) H 01/17/18 05:05 Estimated GFR (MDRD) 39 (>89) L 01/17/18 05:05 Glucose 142 mg/dL (70-100) H 01/17/18 05:05 POC Whole Bld Glucose 154 mg/dL (70 - 100) H 01/14/18 17:56 Calcium 8.6 mg/dL (8.5-10.3) 01/17/18 05:05 Magnesium 1.8 mg/dL (1.7-2.8) 01/16/18 05:15 Total Bilirubin 0.3 mg/dL (0.2-1.0) 01/17/18 05:05 Direct Bilirubin 0.2 mg/dL (0.1-0.5) 01/17/18 05:05 AST 19 IU/L (10-42) 01/17/18 05:05 ALT 14 IU/L (10-60) 01/17/18 05:05 Alkaline Phosphatase 75 IU/L (42-121) 01/17/18 05:05 Troponin I 0.04 ng/mL (<0.49) 01/17/18 12:25 Total Protein 4.7 g/dL (6.7-8.2) L 01/17/18 05:05 Albumin 2.6 g/dL (3.2-5.5) L 01/17/18 05:05 Globulin 2.1 g/dL (2.1-4.2) 01/17/18 05:05 Albumin/Globulin Ratio 1.2 (1.0-2.2) 01/14/18 08:35 Lipase 28 U/L (22-51) 01/14/18 08:35 Urine Color YELLOW 01/14/18 09:15 Urine Clarity CLEAR (CLEAR) 01/14/18 09:15 Urine pH 5.5 PH (5.0-7.5) 01/14/18 09:15 Ur Specific [place] 1.025 (1.002-1.030) 01/14/18 09:15 Urine Protein NEGATIVE mg/dL (NEGATIVE) 01/14/18 09:15 Urine Glucose (UA) NEGATIVE mg/dL (NEGATIVE) 01/14/18 09:15 Urine Ketones NEGATIVE mg/dL (NEGATIVE) 01/14/18 09:15 Urine Occult Blood NEGATIVE (NEGATIVE) 01/14/18 09:15 Urine Nitrite NEGATIVE (NEGATIVE) 01/14/18 09:15 Urine Bilirubin NEGATIVE (NEGATIVE) 01/14/18 09:15 Urine Urobilinogen 0.2 (NORMAL) E.U./dL (NORMAL) 01/14/18 09:15 Ur Leukocyte Esterase NEGATIVE (NEGATIVE) 01/14/18 09:15 Ur Microscopic Review NOT INDICATED 01/14/18 09:15 Urine Culture Comments NOT INDICATED 01/14/18 09:15 Blood Type A NEGATIVE 01/15/18 13:04 Blood Type Recheck A NEGATIVE 01/14/18 15:34 Antibody Screen POSITIVE 01/15/18 13:04 Antibody Identification Anti-C Anti-D 01/15/18 13:04 Antibody Identification Anti-C Anti-D 01/15/18 13:04 Crossmatch See Detail 01/15/18 13:04
[2018-01-17 18:43] LABS: HGB - HEMOGLOBIN 8.6 g/dL (14.0-18.0)
[2018-01-17] MEDS: SIMETHICONE CHEW 80 MG TABLET PO SCH ×2 (19:56→20:25)
--- NOTE | 2018-01-17 20:41 | CT Report ---
Reason: Source of GI bleed eval Procedure Date: 01/17/2018 Accession Number: [id number] / [id number] Procedure: CT - Abdomen/Pelvis W/O CPT Code: FULL RESULT: EXAM: CT ABDOMEN AND PELVIS EXAM DATE: 01/17/2018 07:44 PM. CLINICAL HISTORY: Source of GI bleed eval. COMPARISONS: 01/16/2018. 01/09/2018. 04/26/2014. TECHNIQUE: Routine helical CT imaging was performed through the abdomen and pelvis. IV contrast: None. Enteric contrast: No. Reconstructions: Coronal and sagittal. In accordance with CT protocol optimization, one or more of the following dose reduction techniques were utilized for this exam: automated exposure control, adjustment of mA and/or KV based on patient size, or use of iterative reconstructive technique. FINDINGS: Lung Bases: Small pleural effusions. Bibasilar scar/atelectasis. Heart size upper normal. Changes are seen from median sternotomy. Small to moderate hiatal hernia. Liver: Unenhanced images of liver unremarkable. Gallbladder/Bile Ducts: Status post cholecystectomy. Spleen: Normal. Pancreas: Normal. Adrenal Glands: Normal. Kidneys: Bilateral perinephric stranding. Low-attenuation exophytic lesion arises from the posterior mid upper right kidney measuring 3.7 cm and left parapelvic renal low-attenuation lesion seen along the mid lower left kidney measuring 3.4 cm also seen arising from the lower pole measuring 20 mm. No hydronephrosis. No ureteral dilatation or ureteral calculi. Smaller low-attenuation lesions are seen in both kidneys. Peritoneal Cavity/Bowel: Stomach is nondistended. No evidence of bowel obstruction. No bowel dilatation. Fluid is seen in the small bowel and colon. Detail of the bowel wall is limited due to lack of contrast. No enlarged retroperitoneal or mesenteric lymph nodes. No free air. Small fatty umbilical hernia. No clear evidence for diverticulitis. Colonic diverticulosis. Appendix is not seen. Clip is seen by the cecum which is likely postsurgical. No areas of high attenuation or focal hemorrhage are seen within the small bowel or colonic mesentery or high attenuation in the bowel lumen by CT. Pelvic Organs: No bladder calculi. Prostate gland and seminal vesicles are unremarkable. Trace pelvic free fluid. Vasculature: Vascular calcifications. No aneurysm. Bones: Degenerative changes lower thoracic and lumbar spine. Lumbar facet arthropathy. Other: Subcutaneous edema. IMPRESSION: 1. No bowel wall thickening or areas of mesenteric or intraluminal bowel high density seen to suggest foci of acute hemorrhage on these unenhanced images. 2. Small bilateral pleural effusions. 3. Colonic diverticulosis. No bowel obstruction. 4. Mild subcutaneous edema. RADIA
[2018-01-17] MEDS ORDERED: ONDANSETRON 4 MG/2 ML VIAL IVP PRN (22:01)
[2018-01-17] MEDS ORDERED: ONDANSETRON 4 MG/2 ML VIAL ONE (22:01)
[2018-01-17] MEDS ORDERED: SODIUM CHLORIDE 0.9% 1,000 ML IV ONE (23:01)
[2018-01-18 00:36] LABS: BASOPHILS % (AUTO) 0.3 %; EOSINOPHILS # (AUTO) 0.2 10^3/uL (0.0-0.7); EOSINOPHILS % (AUTO) 1.8 %; LYMPHOCYTES # (AUTO) 0.9 10^3/uL (1.5-3.5); LYMPHOCYTES % (AUTO) 7.6 %; MEAN CORPUSCULAR HEMOGLOBIN 31.3 pg (27.0-31.0); MEAN CORPUSCULAR VOLUME 92.1 fL (80.0-94.0); MEAN PLATELET VOLUME 6.4 fL (7.4-11.4); MONOCYTES # (AUTO) 0.5 10^3/uL (0.0-1.0); MONOCYTES % (AUTO) 4.4 %; NEUTROPHILS # (AUTO) 10.2 10^3/uL (1.5-6.6); NEUTROPHILS % (AUTO) 85.9 %; PLT - PLATELET COUNT 259 10^3/uL (130-450); RED BLOOD COUNT 2.22 10^6/uL (4.70-6.10); RED CELL DISTRIBUTION WIDTH 17.2 % (12.0-15.0); WHITE BLOOD COUNT 11.8 x10^3/uL (4.8-10.8)
[2018-01-18] MEDS ORDERED: SODIUM CHLORIDE 0.9% 1,000 ML IV SCH (00:42)
[2018-01-18] MEDS ORDERED: BENZOCAINE/MENTHOL LOZENGE MM PRN (01:16)
[2018-01-18] MEDS: SODIUM CHLORIDE FLUSH 0.9% 10 ML SYRINGE IVP SCH (01:34)
[2018-01-18] MEDS ORDERED: guaiFENesin/DEXTROMETHORPHAN 10 ML UDC PO PRN (02:31)
[2018-01-18] MEDS ORDERED: SODIUM CHLORIDE 0.9% 500 ML IV ONE ×2 (04:29→08:14)
[2018-01-18] MEDS ORDERED: CALCIUM CARBONATE CHEW 500 MG TABLET PO STA (05:11)
[2018-01-18] MEDS: metroNIDAZOLE 250 MG TABLET PO SCH ×2 (06:44→14:39)
[2018-01-18] MEDS: POLYETHYLENE GLYCOL 3350 17 GM PACKET PO SCH (07:19)
[2018-01-18] MEDS: cephALEXin 250 MG CAPSULE PO SCH (08:54)
[2018-01-18] MEDS: SIMETHICONE CHEW 80 MG TABLET PO SCH ×2 (08:55→12:19)
[2018-01-18] MEDS: PANTOPRAZOLE 40 MG TABLET PO SCH (08:55)
[2018-01-18] MEDS: ESCITALOPRAM 10 MG TABLET PO SCH (08:55)
[2018-01-18] MEDS: CLARITHROMYCIN 500 MG TABLET PO SCH (08:55)
[2018-01-18] MEDS: OSELTAMIVIR 30 MG CAPSULE PO SCH (08:56)
[2018-01-18] MEDS: FLUTICASONE NASAL SPRAY NAS SCH (08:56)
[2018-01-18] MEDS: CYCLOSPORINE EYE EACHEYE SCH (08:56)
[2018-01-18 12:51] VITALS: BP 133/66
[2018-01-18 13:40] LABS: BASOPHILS # (AUTO) 0.1 10^3/uL (0.0-0.1); BASOPHILS % (AUTO) 0.8 %; EOSINOPHILS # (AUTO) 0.4 10^3/uL (0.0-0.7); EOSINOPHILS % (AUTO) 3.2 %; LYMPHOCYTES # (AUTO) 1.4 10^3/uL (1.5-3.5); LYMPHOCYTES % (AUTO) 12.3 %; MEAN CORPUSCULAR HEMOGLOBIN 31.6 pg (27.0-31.0); MEAN CORPUSCULAR HGB CONC 33.4 g/dL (32.0-36.0); MEAN CORPUSCULAR VOLUME 94.4 fL (80.0-94.0); MEAN PLATELET VOLUME 6.9 fL (7.4-11.4); MONOCYTES # (AUTO) 0.6 10^3/uL (0.0-1.0); MONOCYTES % (AUTO) 5.5 %; NEUTROPHILS # (AUTO) 8.9 10^3/uL (1.5-6.6); NEUTROPHILS % (AUTO) 78.2 %; PLT - PLATELET COUNT 175 10^3/uL (130-450); RED BLOOD COUNT 2.85 10^6/uL (4.70-6.10); RED CELL DISTRIBUTION WIDTH 16.4 % (12.0-15.0); WHITE BLOOD COUNT 11.4 x10^3/uL (4.8-10.8)
[2018-01-18 13:57] LABS: PLATELET ESTIMATE, MANUAL NORMAL (130-450,000) (NORMAL); PLATELET MORPHOLOGY NORMAL APPEARANCE (NORMAL)
--- NOTE | 2018-01-18 15:09 | Discharge Plan ---
Discharge Plan Disposition: 02 Transfer Acute Care Hosp No Smoking: If you smoke, Please STOP! Call for help.
--- NOTE | 2018-01-29 15:43 | DISCHARGE SUMMARY ---
Physician: Vanessa Caruos MD DATE OF ADMISSION: 01/14/2018 DATE OF DISCHARGE: 01/18/2018 HISTORY OF PRESENT ILLNESS: This is an 82-year-old white male with a history of coronary artery disease, prior MS, prior bypass surgery, coronary stenting, prior MitraClip surgery, history of remote peptic ulcer disease, sleep apnea on CPAP, CKD, skin cancer surgery, eczema, and psoriasis. The patient was readmitted for this hospitalization 2 days after discharge for community-acquired pneumonia and influenza A. He had been sent home on Keflex and Tamiflu and Mucinex. He felt weaker over the 2 days at home, was unable to walk his dog or exercise on a treadmill. He woke with abdominal pain, had emesis of bilious fluid twice. He was lightheaded and required an ambulance to bring him to the emergency room where he was noted to have a blood pressure of 97 systolic, had a bloody bowel movement, was anemic, had worsened renal insufficiency, and was admitted for evaluation of a GI bleed. HOSPITAL COURSE AND DISCHARGE DIAGNOSES 1. Gastrointestinal (GI) bleed. The patient was on bowel rest, started on H2 blockers. His aspirin, Plavix, and Motrin p.r.n. were discontinued. The patient underwent endoscopy by General Surgery. He had H. pylori positive, but no source of bleeding was found on EGD. He also underwent colonoscopy with no obvious source of bleeding noted. He had a nuclear red cell-tagged bleeding scan, which also showed no source of bleeding. He underwent a CT of the abdomen, which showed no evidence of tumors, no signs of acute hemorrhage, or bowel obstruction. Throughout his course, he had maroon bowel movements every other day, which would make him lightheaded. I reached out to the Hospitalist for transfer to [facility] (where his Long Term Care Administrator practiced), and he was accepted in transfer for further workup of his gastrointestinal (GI) bleed. 2. Helicobacter pylori antibody positive. This was noted during his EGD. He was started on a 14-day course of treatment with Flagyl and Biaxin (based on his allergy to penicillin). 3. Anemia. Because of the patient's repeat intermittent lower gastrointestinal bleeding, he was anemic and very symptomatic. The patient required several blood transfusions while here: his admission hemoglobin was 10.1, dropped to 7.5, after transfusion it improved to 9, which again dropped to 7.9. This again improved to 8.6 and dropped to 7.0. He was receiving a blood transfusion during ambulance transfer to [place]. 4. Acute renal failure superimposed on stage 3 disease. His admission creatinine was 2.0, which improved to 1.7 - 1.8 after volume replacement with crystalloids and blood transfusions. 5. Angina. The patient experienced 2 episodes of angina while here. It was felt to be from the stress of the anemia. An EKGs showed no ischemic changes, and troponins were cycled and not detectable. 6. Obstructive sleep apnea (HONG), on CPAP. The patient was on his home CPAP device while here. 7. Community-acquired pneumonia. The patient was kept on his oral Keflex for completion of treatment from the last admission for community-acquired pneumonia. 8. Influenza A. The patient was kept on his Tamiflu for completion of treatment of influenza, noted on the last admission. LABS AND IMAGING: Reviewed and summarized above. ALLERGIES 1. PENICILLIN. 2. CODEINE. 3. ONIONS. MEDICATIONS AT THE TIME OF TRANSFER 1. Nitroglycerin sublingual p.r.n. 2. Albuterol inhaler p.r.n. 3. Lipitor 80 mg daily. 4. Azelastine nasal spray p.r.n. 5. Coreg 3.125 daily. 6. Vitamin D3 at 5000 units daily. 7. Restasis eyedrops b.i.d. 8. Lexapro 5 mg daily. 9. Nexium. 10. Flonase nasal spray daily. 11. Folic acid daily. 12. Lasix 30 mg daily. This was on hold intermittently because of the low blood pressure. 13. Isordil 60 mg daily. 14. Losartan 25 mg daily. 15. Tamiflu b.i.d. 16. Keflex po 17. Biaxin po 18. Flagyl po CONDITION AT DISCHARGE: Guarded. PHYSICAL EXAMINATION AT DISCHARGE VITAL SIGNS: Blood pressure 133/66. Pulse 70, in sinus rhythm. Afebrile. Saturation 99%. HEENT: Unremarkable. NECK: No carotid bruits or JVD. CHEST: Clear. HEART: Sounds normal. No murmurs audible. ABDOMEN: Soft. Nontender. Normal bowel sounds. No organomegaly. No guarding or rebound. EXTREMITIES: Without edema. NEUROLOGIC: Intact. FOLLOWUP: This will be determined after his hospitalization at [facility] in [place]. CODE STATUS: FULL CODE. Time required to complete this entire discharge, chart review, contact of hospitalist for transfer, dictation: 60 minutes. cc: Denice Carty MD TD: 01/29/2018 13:57 MTDD
== END 2018-01-18 16:40 | disposition short-term general hospital (02) | DRG 377 ==
LOC: EDUNIT# → ED 08:27 → MS2 11:20
PROVIDERS: ADMIT Internal Medicine; ATTEND Internal Medicine
PROC: 30233N1 Transfusion of Nonautologous Red Blood Cells into Peripheral Vein, Percutaneous Approach (ICD-10-PCS; 2018-01-14)
PROC: 0DB78ZX Excision of Stomach, Pylorus, Via Natural or Artificial Opening Endoscopic, Diagnostic (ICD-10-PCS; principal; 2018-01-14 19:20)
PROC: 0DJD8ZZ Inspection of Lower Intestinal Tract, Via Natural or Artificial Opening Endoscopic (ICD-10-PCS; 2018-01-17)
DX: K92.0 Hematemesis (principal); K92.1 Melena; I95.9 Hypotension, unspecified; I10 Essential (primary) hypertension; I25.10 Atherosclerotic heart disease of native coronary artery without angina pectoris; K29.71 Gastritis, unspecified, with bleeding; J10.00 Influenza due to other identified influenza virus with unspecified type of pneumonia; Z95.1 Presence of aortocoronary bypass graft; N17.9 Acute kidney failure, unspecified; D62 Acute posthemorrhagic anemia; K57.31 Diverticulosis of large intestine without perforation or abscess with bleeding; B96.81 Helicobacter pylori [H. pylori] as the cause of diseases classified elsewhere; Z87.01 Personal history of pneumonia (recurrent); Z87.09 Personal history of other diseases of the respiratory system; I12.9 Hypertensive chronic kidney disease with stage 1 through stage 4 chronic kidney disease, or unspecified chronic kidney disease; I25.119 Atherosclerotic heart disease of native coronary artery with unspecified angina pectoris; K44.9 Diaphragmatic hernia without obstruction or gangrene; K64.8 Other hemorrhoids; G47.30 Sleep apnea, unspecified; N18.3 Chronic kidney disease, stage 3 (moderate); H04.123 Dry eye syndrome of bilateral lacrimal glands; I34.0 Nonrheumatic mitral (valve) insufficiency; G47.33 Obstructive sleep apnea (adult) (pediatric); I25.2 Old myocardial infarction; Z79.02 Long term (current) use of antithrombotics/antiplatelets; Z79.82 Long term (current) use of aspirin; Z79.1 Long term (current) use of non-steroidal anti-inflammatories (NSAID); Z95.5 Presence of coronary angioplasty implant and graft; Z87.11 Personal history of peptic ulcer disease; Z88.0 Allergy status to penicillin; Z79.899 Other long term (current) drug therapy; Z98.890 Other specified postprocedural states; Z90.49 Acquired absence of other specified parts of digestive tract; Z85.828 Personal history of other malignant neoplasm of skin; Z87.891 Personal history of nicotine dependence
CPT/HCPCS: 36415; 74176; 78278; 80048; 80053; 80076; 81001; 81003; 83690; 83735; 84484; 85014; 85018; 85025; 85610; 85730; 86850; 86870; 86900; 86901; 86922; 87081; 87086; 93005; 96361; 96365; 99284

== ENCOUNTER 2018-01-18 16:38 | Outpatient (CLI) | payer MEDICARE, OTHER | END 2018-01-18 16:39 | disposition short-term general hospital (02) | LOC: EMS 16:38 | PROVIDERS: ATTEND Surgery | DX: K92.2 Gastrointestinal hemorrhage, unspecified (principal) | CPT/HCPCS: A0425; A0426 ==

== ENCOUNTER 2018-01-27 15:12 | Outpatient (CLI) | payer MEDICARE, OTHER | END 2018-01-27 15:13 | disposition home or self-care (01) | LOC: SC 15:12 | PROVIDERS: ATTEND Nurse Practitioner Family | DX: G47.33 Obstructive sleep apnea (adult) (pediatric) (principal) | CPT/HCPCS: 99215; G0463; 99212 ==

== ENCOUNTER 2018-01-30 08:00 | Outpatient (CLI) | payer MEDICARE, OTHER | END 2018-01-30 23:59 | LOC: LAB.R 08:00 | PROVIDERS: ATTEND Family Medicine | DX: K92.2 Gastrointestinal hemorrhage, unspecified (principal) | CPT/HCPCS: 82270 ==

== ENCOUNTER 2018-01-30 10:33 | Outpatient (CLI) | payer MEDICARE, OTHER ==
[2018-01-30 19:48] LABS: BASOPHILS % (AUTO) 0.7 %; EOSINOPHILS # (AUTO) 0.2 10^3/uL (0.0-0.7); EOSINOPHILS % (AUTO) 5.4 %; HGB - HEMOGLOBIN 9.9 g/dL (14.0-18.0); LYMPHOCYTES % (AUTO) 22.3 %; MEAN CORPUSCULAR HEMOGLOBIN 31.9 pg (27.0-31.0); MEAN CORPUSCULAR HGB CONC 32.9 g/dL (32.0-36.0); MEAN CORPUSCULAR VOLUME 96.9 fL (80.0-94.0); MEAN PLATELET VOLUME 6.9 fL (7.4-11.4); MONOCYTES # (AUTO) 0.5 10^3/uL (0.0-1.0); MONOCYTES % (AUTO) 10.4 %; NEUTROPHILS # (AUTO) 2.7 10^3/uL (1.5-6.6); NEUTROPHILS % (AUTO) 61.2 %; PLT - PLATELET COUNT 308 10^3/uL (130-450); RED BLOOD COUNT 3.09 10^6/uL (4.70-6.10); RED CELL DISTRIBUTION WIDTH 18.4 % (12.0-15.0); WHITE BLOOD COUNT 4.4 x10^3/uL (4.8-10.8)
[2018-01-30 20:29] LABS: ALBUMIN 3.5 g/dL (3.2-5.5); ALBUMIN/GLOBULIN RATIO 1.3 (1.0-2.2); BILIRUBIN,TOTAL 0.7 mg/dL (0.2-1.0); CALCIUM 9.6 mg/dL (8.5-10.3); CREATININE 1.9 mg/dL (0.6-1.2); TOTAL PROTEIN 6.3 g/dL (6.7-8.2)
== END 2018-01-30 10:34 | disposition home or self-care (01) ==
LOC: LAB.WCP 10:33
PROVIDERS: ATTEND Family Medicine
DX: K21.9 Gastro-esophageal reflux disease without esophagitis (principal); K92.2 Gastrointestinal hemorrhage, unspecified
CPT/HCPCS: 36415; 80053; 81599; 82270; 82728; 83540; 83630; 84466; 85025; 87045; 87046; 87493

== ENCOUNTER 2018-01-30 13:50 | Outpatient (CLI) | payer MEDICARE, OTHER | END 2018-01-30 13:51 | disposition home or self-care (01) | LOC: LAB.R 13:50 | PROVIDERS: ATTEND Family Medicine | DX: K21.9 Gastro-esophageal reflux disease without esophagitis (principal) | CPT/HCPCS: 81599; 83630; 87045; 87046; 87493 ==

== ENCOUNTER 2018-04-28 10:06 | Outpatient (CLI) | payer MEDICARE, OTHER | END 2018-04-28 10:07 | disposition home or self-care (01) | LOC: SC 10:06 | PROVIDERS: ATTEND Nurse Practitioner Family | DX: G47.33 Obstructive sleep apnea (adult) (pediatric) (principal); G47.00 Insomnia, unspecified | CPT/HCPCS: 99214; G0463; 99212 ==

== ENCOUNTER 2018-05-22 21:35 | Emergency (ER) | payer MEDICARE, OTHER ==
[2018-05-22 22:10] LABS: BASOPHILS % (AUTO) 0.9 %; EOSINOPHILS # (AUTO) 0.4 10^3/uL (0.0-0.7); EOSINOPHILS % (AUTO) 7.5 %; HGB - HEMOGLOBIN 11.6 g/dL (14.0-18.0); LYMPHOCYTES # (AUTO) 1.5 10^3/uL (1.5-3.5); LYMPHOCYTES % (AUTO) 30.6 %; MEAN CORPUSCULAR HEMOGLOBIN 28.9 pg (27.0-31.0); MEAN CORPUSCULAR HGB CONC 34.2 g/dL (32.0-36.0); MEAN CORPUSCULAR VOLUME 84.6 fL (80.0-94.0); MEAN PLATELET VOLUME 7.4 fL (7.4-11.4); MONOCYTES # (AUTO) 0.5 10^3/uL (0.0-1.0); MONOCYTES % (AUTO) 10.6 %; NEUTROPHILS # (AUTO) 2.5 10^3/uL (1.5-6.6); NEUTROPHILS % (AUTO) 50.4 %; PLT - PLATELET COUNT 186 10^3/uL (130-450); RED BLOOD COUNT 4.03 10^6/uL (4.70-6.10); RED CELL DISTRIBUTION WIDTH 18.7 % (12.0-15.0)
[2018-05-22 22:21] LABS: ALBUMIN/GLOBULIN RATIO 1.4 (1.0-2.2); BILIRUBIN,TOTAL 0.3 mg/dL (0.2-1.0); CALCIUM 9.6 mg/dL (8.5-10.3); TOTAL PROTEIN 6.9 g/dL (6.7-8.2)
--- NOTE | 2018-05-22 22:33 | XRAY Report ---
Reason: Angina Procedure Date: 05/22/2018 Accession Number: [id number] / [id number] Procedure: XR - Chest 2 View X-Ray CPT Code: 15613 FULL RESULT: EXAM: CHEST RADIOGRAPHY EXAM DATE: 05/22/2018 10:27 PM. CLINICAL HISTORY: Angina. COMPARISON: CHEST 2 VIEW 01/08/2018 10:34 PM. TECHNIQUE: 2 views. FINDINGS: Lungs/Pleura: No focal opacities evident. No pleural effusion. No pneumothorax. Normal volumes. Mediastinum: The heart is not enlarged. There is slight tortuosity of the thoracic aorta. Other: None. IMPRESSION: 1. No acute infiltrates. No signs of congestive failure. RADIA
[2018-05-22] MEDS ORDERED: NITROGLYCERIN SL 0.4 MG TABLET SL STA (23:16)
[2018-05-22] MEDS ORDERED: ASPIRIN CHEW 81 MG TABLET PO STA (23:16)
[2018-05-22] MEDS ORDERED: NITROGLYCERIN 2% PASTE TOP STA (23:51)
[2018-05-23] MEDS ORDERED: METOPROLOL TARTRATE 50 MG TABLET PO STA (02:43)
--- NOTE | 2018-05-23 04:52 | ED Physician Documentation ---
PD HPI CHEST PAIN - Stated complaint Stated Complaint: CP - Chief complaint Chief Complaint: Cardiac - History obtained from History obtained from: Patient - History of Present Illness Timing - onset: Enter time (14:30), Today Timing - onset during: Exertion Timing - duration: Minutes, Hours Timing - details: Abrupt onset, Still present, Waxing and waning Pain level max: 7 Pain level now: 4 Quality: Pressure, Tightness, Like prior ACS Location: Substernal Radiation: Other (does not radiate) Improved by: Rest Worsened by: Exertion Associated symptoms: No: Shortness of air, Diaphoresis, Nausea, Vomiting, General Weakness, Palpitations Similar symptoms before: Diagnosis (similar to previous ACS) Recently seen: Not recently seen - Additional information Additional information: c/o pain/pressure across chest, predominantly midline/substernal. He has had mild, self-limited episodes for the past week but today at 2:30 PM he had more severe pain while chasing after his dog. This gradually resolved with rest but recurred 8:30 PM tonight while walking his dog, not relieved by rest and thus comes to ED. He says the pain is very similar to pain he had in the past that resulted in coronary artery stents (3 stents placed 2 years ago at [facility].) He says one month after the procedure 2 years ago, he then had mitral clips placed. He says he has had no symptoms (chest discomfort) since this procedure 2 years ago. He had 5 stents placed a few years before the procedure performed 2 years ago. Pain was 7/10 tonight but has improved to 4/10 by the time of this evaluation Review of Systems Constitutional: reports: Reviewed and negative Eyes: reports: Reviewed and negative Ears: reports: Reviewed and negative Nose: reports: Reviewed and negative Throat: reports: Reviewed and negative Cardiac: reports: Chest pain / pressure. denies: Palpitations, Pedal edema, Calf pain Respiratory: reports: Reviewed and negative GI: reports: Reviewed and negative : denies: Dysuria, Frequency Skin: reports: Reviewed and negative Musculoskeletal: reports: Reviewed and negative Neurologic: reports: Reviewed and negative PD PAST MEDICAL HISTORY - Past Medical History Cardiovascular: Hypertension, High cholesterol, Coronary artery disease, ID, Valve disorder Respiratory: Pneumonia, Sleep apnea, CPAP use Neuro: None Endocrine/Autoimmune: None GI: None : Renal insuffiency Psych: None Musculoskeletal: None Derm: Eczema, Psoriasis - Past Surgical History Past Surgical History: Yes General: Cholecystectomy, Appendectomy, Hiatal hernia repair Cardiovascular: CABG, Coronary stent, Other HEENT: Tonsil/Adenoidectomy Derm: Skin cancer surgery - Present Medications Home Medications: Ambulatory Orders Medication Instructions Recorded Confirmed Atorvastatin Calcium [Lipitor] 80 mg PO DAILY 02/02/13 05/22/18 Fluticasone [Flonase] 1 sprays CLARK DAILY 02/02/13 05/22/18 Furosemide [Lasix] 30 mg PO DAILY 02/02/13 05/22/18 Losartan [Cozaar] 25 mg PO DAILY 02/02/13 05/22/18 Isosorbide Mononitrate [Isosorbide 60 mg PO DAILY 03/29/14 05/22/18 Mononitrate ER] Aspirin [[place] Aspirin EC] 81 mg PO DAILY 01/09/18 05/22/18 Cholecalciferol [Vitamin D3] 5,000 unit PO DAILY 01/09/18 05/22/18 Cyclosporine [Restasis] 1 each EACHEYE BID 01/09/18 05/22/18 Esomeprazole Magnesium [Nexium 40 mg PO BID 01/09/18 05/22/18 24Hr] Folic Acid 2,400 mcg PO DAILY 01/09/18 05/22/18 Nitroglycerin [Nitrostat] 0.4 mg SL Q5MIN PRN 01/09/18 05/22/18 Cetirizine [ZyrTEC] 10 mg PO DAILY 05/22/18 05/22/18 - Allergies Allergies/Adverse Reactions: Allergies Allergy/AdvReac Type Severity Reaction Status Date / Time Penicillins AdvReac Severe passed out Verified 01/14/18 08:33 codeine [Codeine] AdvReac Intermediate gi problems Verified 01/14/18 08:33 onion family Allergy Emesis Uncoded 01/15/18 11:00 - Social History Does the pt smoke?: No Smoking Status: Never smoker Does the pt drink ETOH?: Yes Does the pt have substance abuse?: No - Immunizations Immunizations are current?: No Immunizations: TDAP >10years/unknown - POLST Patient has POLST: No POLST Status: Full Code PD ED PE NORMAL - Vitals Vital signs reviewed: Yes - General General: Alert and oriented X 3, No acute distress, Well developed/nourished - HEENT HEENT: Moist mucous membranes - Neck Neck: Supple, no meningeal sign - Cardiac Cardiac: RRR, No murmur, No gallop, No rub - Respiratory Respiratory: No respiratory distress, Clear bilaterally - Abdomen Abdomen: Soft, Non tender, Non distended - Derm Derm: Normal color, Warm and dry - Extremities Extremities: No edema - Neuro Neuro: Alert and oriented X 3 Results - Vitals Vitals: Vital Signs - 24 hr 05/22/18 05/22/18 05/22/18 21:42 21:58 22:53 Temperature 36.6 C Heart Rate 76 55 L 56 L Respiratory 18 14 12 Rate Blood Pressure 135/80 H 150/82 H 141/78 H Blood Pressure 135/80 H [Left] O2 Saturation 98 97 96 05/22/18 05/22/18 05/22/18 23:25 23:32 23:43 Temperature Heart Rate 76 85 63 Respiratory 15 18 20 Rate Blood Pressure 140/74 H 133/92 H 134/77 H Blood Pressure [Left] O2 Saturation 98 95 98 05/23/18 05/23/18 05/23/18 00:03 00:30 01:00 Temperature Heart Rate 57 L 64 56 L Respiratory 12 20 15 Rate Blood Pressure 121/76 130/65 135/93 H Blood Pressure [Left] O2 Saturation 97 100 98 05/23/18 05/23/18 05/23/18 01:30 02:00 02:30 Temperature Heart Rate 52 L 56 L 76 Respiratory 12 19 20 Rate Blood Pressure 136/75 H 131/74 H 144/65 H Blood Pressure [Left] O2 Saturation 98 97 99 05/23/18 05/23/18 05/23/18 03:00 03:30 04:00 Temperature Heart Rate 64 66 63 Respiratory 18 17 17 Rate Blood Pressure 144/72 H 150/102 H 152/78 H Blood Pressure [Left] O2 Saturation 99 100 99 05/23/18 05:07 Temperature 36.9 C Heart Rate 59 L Respiratory 16 Rate Blood Pressure 125/76 Blood Pressure [Left] O2 Saturation 92 Oxygen O2 Source [Without Activity] Room air O2 Source Room air Oxygen Flow Rate 2 - EKG (time done) No standard instances Rate: Rate (enter#) (65) Rhythm: NSR, LAE [place]: LAD Intervals: Prolonged [place], RBBB QRS: Normal Ischemia: Normal ST segments, Q waves (III, aVF) Compare to prior EKG: Unchanged from prior EKG - Labs Labs: Laboratory Tests 05/22/18 05/22/18 05/22/18 21:55 21:55 21:55 WBC 5.0 RBC 4.03 L Hgb 11.6 L Hct 34.0 L MCV 84.6 MCH 28.9 MCHC 34.2 RDW 18.7 H Plt Count 186 MPV 7.4 Neut # (Auto) 2.5 Lymph # (Auto) 1.5 [place] # (Auto) 0.5 Eos # (Auto) 0.4 Baso # (Auto) 0.0 Absolute Nucleated RBC 0.00 Nucleated RBC % 0.1 Sodium 138 Potassium 4.2 Chloride 105 Carbon Dioxide 26 Anion Gap 7.0 BUN 38 H Creatinine 2.0 H Estimated GFR (MDRD) 32 L Glucose 130 H Calcium 9.6 Total Bilirubin 0.3 AST 23 ALT 16 Alkaline Phosphatase 101 Troponin I < 0.04 Total Protein 6.9 Albumin 4.0 Globulin 2.9 Albumin/Globulin Ratio 1.4 Lipase 41 05/23/18 00:25 WBC RBC Hgb Hct MCV MCH MCHC RDW Plt Count MPV Neut # (Auto) Lymph # (Auto) [place] # (Auto) Eos # (Auto) Baso # (Auto) Absolute Nucleated RBC Nucleated RBC % Sodium Potassium Chloride Carbon Dioxide Anion Gap BUN Creatinine Estimated GFR (MDRD) Glucose Calcium Total Bilirubin AST ALT Alkaline Phosphatase Troponin I < 0.04 Total Protein Albumin Globulin Albumin/Globulin Ratio Lipase - Rads (name of study) chest xray Radiology: Prelim report reviewed, See rad report PD MEDICAL DECISION MAKING - ED course Complexity details: reviewed results, re-evaluated patient, considered differential, d/w patient ED course: On reevaluation after tests resulted, patient says his chest pain persists and has been waxing and waning. He says this pattern is again reminiscent of symptoms he had just prior to his stenting procedure 2 years ago. D/W Dr. 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 Galo); he recommends transfer to hospitalist service at [facility]. D/W hospitalist at [facility]. He agrees with transfer but needs to d/w nursing supervisor furnace process first to discuss bed availability. Subsequently received call from nursing supervisor furnace process informing me that they do not have appropriate bed available. Contacted [facility] for transfer but they have no beds available. Contacted [facility] but they have no beds available. D/W group sales coordinator at [facility] and case reviewed. She subsequently called back and says there are no beds available. D/W cardiology on-call at [facility]; he agrees patient is appropriate for transfer. I subsequently was told that no beds available but will put patient on list; they do not expect bed will be available until late morning/mid-day. Contacted [facility], no beds available. Contacted [facility], no beds available. D/W Dr. Finn, cardiology on-call at [place]. He accepts patient for transfer, recommends 12.5mg PO metoprolol tartrate. During these attempts to arrange transfer, patient became chest-pain free (after approximately 3 hours in ED). He had 2 negative troponins 2 hours apart. Departure - Departure Disposition: 02 Transfer Acute Care Hosp Clinical Impression: Chest pain Qualifiers: Chest pain type: unspecified Qualified Code(s): R07.9 - Chest pain, unspecified Condition: Stable Discharge Date/Time: 05/23/18 05:22
[2018-05-23 05:07] VITALS: BP 125/76
== END 2018-05-23 05:22 | disposition short-term general hospital (02) ==
LOC: ED 21:35
DX: R07.9 Chest pain, unspecified (principal); I45.10 Unspecified right bundle-branch block; I10 Essential (primary) hypertension; E78.00 Pure hypercholesterolemia, unspecified; I25.10 Atherosclerotic heart disease of native coronary artery without angina pectoris; I25.2 Old myocardial infarction; Z95.1 Presence of aortocoronary bypass graft; Z95.5 Presence of coronary angioplasty implant and graft; Z79.82 Long term (current) use of aspirin
CPT/HCPCS: 36415; 71046; 80053; 83690; 84484; 85025; 93005; 99285; A9270

== ENCOUNTER 2018-06-03 12:29 | Outpatient (CLI) | payer MEDICARE, OTHER | END 2018-06-03 12:30 | disposition short-term general hospital (02) | LOC: EMS 12:29 | PROVIDERS: ATTEND Surgery | DX: R07.89 Other chest pain (principal) | CPT/HCPCS: A0425; A0427 ==

== ENCOUNTER 2018-06-09 10:03 | Outpatient (CLI) | payer MEDICARE, OTHER | END 2018-06-09 10:04 | disposition home or self-care (01) | LOC: SC 10:03 | PROVIDERS: ATTEND Nurse Practitioner Family | DX: G47.33 Obstructive sleep apnea (adult) (pediatric) (principal); R53.83 Other fatigue | CPT/HCPCS: 99214; G0463; 99212 ==

== ENCOUNTER 2018-07-14 10:18 | Outpatient (CLI) | payer MEDICARE, OTHER | END 2018-07-14 10:19 | disposition home or self-care (01) | LOC: SC 10:18 | PROVIDERS: ATTEND Nurse Practitioner Family | DX: G47.33 Obstructive sleep apnea (adult) (pediatric) (principal) | CPT/HCPCS: 99214; G0463; 99212 ==

== ENCOUNTER 2018-08-18 10:55 | Outpatient (CLI) | payer MEDICARE, OTHER | END 2018-08-18 10:56 | disposition home or self-care (01) | LOC: SC 10:55 | PROVIDERS: ATTEND Nurse Practitioner Family | DX: G47.33 Obstructive sleep apnea (adult) (pediatric) (principal) | CPT/HCPCS: 99214; G0463; 99212 ==

== ENCOUNTER 2018-08-26 09:41 | Outpatient (CLI) | payer MEDICARE, OTHER ==
[2018-08-26 13:00] LABS: CALCIUM 10.1 mg/dL (8.5-10.3); CREATININE 2.3 mg/dL (0.6-1.2)
== END 2018-08-26 23:59 | disposition home or self-care (01) ==
LOC: LAB.WCP 09:41
PROVIDERS: ATTEND Family Medicine
DX: I10 Essential (primary) hypertension (principal)
CPT/HCPCS: 36415; 80048

== ENCOUNTER 2018-10-20 11:14 | Outpatient (CLI) | payer MEDICARE, OTHER | END 2018-10-20 11:15 | disposition home or self-care (01) | LOC: SC 11:14 | PROVIDERS: ATTEND Nurse Practitioner Family | DX: G47.33 Obstructive sleep apnea (adult) (pediatric) (principal) | CPT/HCPCS: 99215; G0463; 99212 ==

== ENCOUNTER 2018-12-22 11:08 | Outpatient (CLI) | payer MEDICARE, OTHER ==
--- NOTE | 2018-12-22 12:17 | SLEEP CARE CONSULTATION ---
Information from patient questionnaire entered by Cecille Lange. I have reviewed and concur with the information entered by Cecille Lange. This document represents the service I personally performed and the decisions made by me, Adilene Gregory, RN, MSN, PHARMACEUTICAL ANALYST. History of Present Illness Previous diagnosis: Moderate, Obstructive Sleep Apnea-Hypopnea Syndrome AHI: 23.4 Reason for CPAP/BiPAP follow up: other (2 MONTH FOLLOW UP) Equipment type: BiPAP Equipment obtained from: [employer] Mask style: Full face Mask brand: [email or web address] Backup mask available: Yes (other style) Last cushion change: not since set up but has been sent. Prior sleep studies: Yes Year and Where: 2 IN 2016 [facility] additional information: Mask fitted in office at last visit , small F&P Simplus, is more comfortable than previous masks. The oral dryness is better with change in humidity setting advised. Nasal irritation resolved without need of Bladimir Ease. CPAP Compliance Data - Data Reviewed with Patient Average duration of nightly device use: 7H 17M Compliance rate %: 100 Current pressure setting (cmH2O): 15/11 Humidity settin Subjective Patient concerns: denies: aerophagia, mask discomfort, air blowing in eyes, mask leak noise (when changes positon only and resolves with adjustment. He uses a CPAP pillow which helps. ), condensation in mask/hose, nasal congestion, dry mouth, nose, throat, epistaxis Observed to snore while using device: No (sleep separately) Current pressure setting perceived as: comfortable On therapy, patient: reports: sleeping better. denies: awakening more refreshed, being more awake and alert during the day, more rested overall, drowsiness while driving Initial [place] Sleepiness Scale score: 18 Current [place] Sleepiness Scale score: 21 Allergies and Home Medications Known drug allergies: Yes Allergy and home medication list: Medication Name (generic/name brand) Strength & Dosage Furosemide 30mg tab 1 daily Lipitor 80mg tab one daily Nitrostat 0.4mg tab as needed Losartan Potassium 25mg tab one daily Isosorbide Mononitrate 60mg tab one daily Metoprolol Tartrate 25mg tab one twice daily Fluticasone Propionate 50mcg One spray each nostril twice daily Folic Acid 600mcg tab twice daily Ranexa 500mg tab one twice daily Nexium 22.3mg two pm Zyrtec 10mg tab one daily Aspirin 81mg tab one daily Vitamin D3 5000IU tab one daily Azelaztine 0.010 one spray each nostril once daily Allergy List Doxycycline Zofran Penicillin Codeine Review of Systems Review of systems same as previous: No (Plans for bilateral cataract surgery) Physical Exam Blood Pressure: 140/70 Cuff size: regular Heart Rate: 61 O2 Saturation: 97 Height: 5 ft 7 in Weight (kg): 200 lb 9.6 oz Body Mass Index: 31.4 BMI Classification: Class 1 Impression and Plan 1. Obstructive Sleep Apnea-Hypopnea Syndrome, , with good treatment compliance a nd good apnea control. On BiAP P therapy, the patient has better sleep quality but overall tired throughout the day. He will dose if sendentary such as watching TV. His bedtime is 11pm to 1am and wake time is 8-8:30. He is getting 7-9 hours of sleep with no change is sleepiness symptoms. His sleep is less interrupted with better mask and resolution of dryness symptoms. Thus he is advised to follow up with PCP for further evaluation of sleepiness symptoms. His obesity can contribute to fatigue as well as other medical problems such as his cardiac disease . He is advised to consider a diet consultation to assist him to obtain weight loss goal. I showed him where he was on BMI chart and how having 10 pound initial weight loss goals to slowly get him to goal. I also stressed the loss of abdominal weight to reduce overall health risks. Since he is planning on having cataract surgery, he is advised to check if he needs to bring his BiPAP with him if sedated. Patient's apnea severity and rationale for treatment to reduce apnea, improve sleep quality and reduce cardiovascular and cerebrovascular events was reviewed. I also reviewed the benefit of consistent device use of BiPAP for hypertension, cardiac disease. * Continue BiPAP pressure at 15/11 cmH2O * Follow up with PCP for further evaluation of fatigue. * Notify me if snoring with mask or feeling that the pressure is too much or too little * Attempt to lose weight * Consider diet consultation * Return for follow up in 6 months , or sooner if concerns arise I spent 100% of this 28 minute visit face to face with the patient with greater than 50% of this was spent time counseling the patient and coordination of care.
[2018-12-22 12:18] VITALS: BP 140/70
== END 2018-12-22 11:09 | disposition home or self-care (01) ==
LOC: SC 11:08
PROVIDERS: ATTEND Nurse Practitioner Family
DX: G47.33 Obstructive sleep apnea (adult) (pediatric) (principal)
CPT/HCPCS: 99214; G0463; 99212

== ENCOUNTER 2019-01-30 08:52 | Outpatient (CLI) | payer MEDICARE, OTHER | END 2019-01-30 08:53 | disposition home or self-care (01) | LOC: NS 08:52 | PROVIDERS: ATTEND Family Medicine | DX: Z71.3 Dietary counseling and surveillance (principal); E11.9 Type 2 diabetes mellitus without complications; G47.30 Sleep apnea, unspecified | CPT/HCPCS: 97802 ==

== ENCOUNTER 2019-02-20 08:35 | Outpatient (CLI) | payer MEDICARE, OTHER ==
[2019-02-20 08:57] LABS: BASOPHILS % (AUTO) 0.9 %; EOSINOPHILS # (AUTO) 0.3 10^3/uL (0.0-0.7); EOSINOPHILS % (AUTO) 6.9 %; HGB - HEMOGLOBIN 12.6 g/dL (14.0-18.0); LYMPHOCYTES # (AUTO) 1.4 10^3/uL (1.5-3.5); LYMPHOCYTES % (AUTO) 31.1 %; MEAN CORPUSCULAR HEMOGLOBIN 32.5 pg (27.0-31.0); MEAN CORPUSCULAR HGB CONC 32.5 g/dL (32.0-36.0); MEAN PLATELET VOLUME 9.1 fL (7.4-11.4); MONOCYTES # (AUTO) 0.5 10^3/uL (0.0-1.0); NEUTROPHILS # (AUTO) 2.3 10^3/uL (1.5-6.6); NEUTROPHILS % (AUTO) 50.7 %; PLT - PLATELET COUNT 151 10^3/uL (130-450); RED BLOOD COUNT 3.88 10^6/uL (4.70-6.10); RED CELL DISTRIBUTION WIDTH 14.7 % (12.0-15.0); WHITE BLOOD COUNT 4.5 x10^3/uL (4.8-10.8)
[2019-02-20 09:07] LABS: CREATININE,URINE 180.7 mg/dL; MICROALBUMIN,URINE 2.9 mg/dL (0-300.0)
[2019-02-20 09:13] LABS: ALBUMIN 3.7 g/dL (3.2-5.5); ALBUMIN/GLOBULIN RATIO 1.2 (1.0-2.2); ALKALINE PHOSPHATASE 88 IU/L (42-121); ALT ALANINE AMINOTRANSFERASE 13 IU/L (10-60); AST ASPARTATE AMINOTRANSFERASE 17 IU/L (10-42); BILIRUBIN,TOTAL 0.9 mg/dL (0.2-1.0); BUN - BLOOD UREA NITROGEN 40 mg/dL (6-20); CALCIUM 10.4 mg/dL (8.5-10.3); CARBON DIOXIDE - CO2 29 mmol/L (21-32); CHLORIDE 105 mmol/L (101-111); CHOLESTEROL 185 mg/dL; CREATININE 2.6 mg/dL (0.6-1.2); GFR - MDRD 24 (>89); GLUCOSE 120 mg/dL (70-100); HDL CHOLESTEROL 37 mg/dL; LDL CHOLESTEROL,CALCULATED 105 mg/dL; LDL/HDL RATIO 2.8 (<3.6); SODIUM 142 mmol/L (135-145); TOTAL PROTEIN 6.8 g/dL (6.7-8.2); VLDL CHOLESTEROL 43 mg/dL
[2019-02-20 09:17] LABS: HB2 TOTAL 12.8 g/dL; HEMOGLOBIN A1C 0.52 g/dL; HEMOGLOBIN A1C % 5.9 % (4.6-6.2)
== END 2019-02-20 08:36 | disposition home or self-care (01) ==
LOC: LAB 08:35
PROVIDERS: ATTEND Family Medicine
DX: G47.00 Insomnia, unspecified (principal); E78.5 Hyperlipidemia, unspecified; R73.03 Prediabetes
CPT/HCPCS: 36415; 80053; 80061; 82043; 82570; 83036; 83721; 84443; 85025

== ENCOUNTER 2019-03-08 11:10 | Outpatient (CLI) | payer MEDICARE, OTHER ==
--- NOTE | 2019-03-08 13:08 | Ultrasound Report ---
Reason: RENAL INSUFFICIENCY Procedure Date: 03/08/2019 Accession Number: [id number] / [id number] Procedure: US - Retroperitoneal CPT Code: Final Report FULL RESULT: EXAM: RENAL ULTRASOUND EXAM DATE: 03/08/2019 12:43 PM. CLINICAL HISTORY: RENAL INSUFFICIENCY. COMPARISON: ABDOMEN/PELVIS W/O 01/17/2018 7:44 PM. TECHNIQUE: Real-time scanning was performed with static images obtained. FINDINGS: Right Kidney: 11.5 cm. Normal echotexture. No hydronephrosis. There are multiple cysts measuring up to 3.8 cm at the upper pole. No calculi. Left Kidney: 11.5 cm. Normal echotexture. No hydronephrosis. There are multiple cysts measuring up to 4.0 cm at the midpole. No calculi. Bladder: Bilateral jets seen. The prevoid bladder volume was 73 cc. The postvoid bladder volume was 10 cc. Prostate gland is normal size. IMPRESSION: 1. No hydronephrosis. 2. Multiple bilateral renal cysts. 3. Small volume postvoid bladder residual. RADIA
== END 2019-03-08 11:11 | disposition home or self-care (01) ==
LOC: DI 11:10
PROVIDERS: ATTEND Family Medicine
DX: N18.9 Chronic kidney disease, unspecified (principal); Q61.02 Congenital multiple renal cysts
CPT/HCPCS: 76770

== ENCOUNTER 2019-03-12 09:00 | Outpatient (CLI) | payer MEDICARE, OTHER ==
[2019-03-12 13:06] LABS: CALCIUM 10.3 mg/dL (8.5-10.3); CREATININE 2.5 mg/dL (0.6-1.2)
== END 2019-03-12 23:59 | disposition home or self-care (01) ==
LOC: LAB.WCP 09:00
PROVIDERS: ATTEND Family Medicine
DX: N18.9 Chronic kidney disease, unspecified (principal)
CPT/HCPCS: 36415; 80048; 83970

== ENCOUNTER 2019-05-27 17:09 | Emergency (ER) | payer MEDICARE, OTHER ==
[2019-05-27 18:08] LABS: ALBUMIN/GLOBULIN RATIO 1.3 (1.0-2.2); BILIRUBIN,TOTAL 0.6 mg/dL (0.2-1.0); CALCIUM 9.8 mg/dL (8.5-10.3); CREATININE 2.5 mg/dL (0.6-1.2); TOTAL PROTEIN 7.1 g/dL (6.7-8.2)
[2019-05-27 18:11] LABS: BASOPHILS % (AUTO) 0.5 %; EOSINOPHILS # (AUTO) 0.3 10^3/uL (0.0-0.7); EOSINOPHILS % (AUTO) 4.3 %; HGB - HEMOGLOBIN 13.3 g/dL (14.0-18.0); LYMPHOCYTES # (AUTO) 2.1 10^3/uL (1.5-3.5); LYMPHOCYTES % (AUTO) 35.8 %; MEAN CORPUSCULAR HGB CONC 32.8 g/dL (32.0-36.0); MEAN CORPUSCULAR VOLUME 97.6 fL (80.0-94.0); MEAN PLATELET VOLUME 9.2 fL (7.4-11.4); MONOCYTES # (AUTO) 0.6 10^3/uL (0.0-1.0); MONOCYTES % (AUTO) 11.1 %; NEUTROPHILS # (AUTO) 2.8 10^3/uL (1.5-6.6); PLT - PLATELET COUNT 172 10^3/uL (130-450); RED BLOOD COUNT 4.16 10^6/uL (4.70-6.10); RED CELL DISTRIBUTION WIDTH 13.5 % (12.0-15.0); WHITE BLOOD COUNT 5.8 x10^3/uL (4.8-10.8)
--- NOTE | 2019-05-27 18:17 | ED Physician Documentation ---
PD HPI ABD PAIN - Stated complaint Stated Complaint: CP/AB PX - Chief complaint Chief Complaint: Abd Pain - History obtained from History obtained from: Patient - History of Present Illness Timing - onset: Yesterday Timing - duration: Days (2) Timing - details: Gradual onset, Still present, Intermittant Quality: Aching, Dull, Pain Location: Epigastric, Periumbilical Radiation: Chest. No: Lower back Improved by: No: Eating, Laying still Worsened by: Palpation (His abd did feel somewhat distended and generally tender.). No: Eating, Moving, Breathing Associated symptoms: Loss of appetite, Other (general fatigue). No: Fever, Nausea, Vomiting, Diarrhea, Constipation, Melena, Dysuria, Near syncope / syncope Similar symptoms before: Has not had sx before Recently seen: Not recently seen Review of Systems Constitutional: denies: Fever, Chills Nose: denies: Rhinorrhea / runny nose, Congestion Throat: denies: Sore throat Cardiac: denies: Palpitations, Pedal edema, Calf pain Respiratory: denies: Cough GI: reports: Abdominal Pain. denies: Nausea, Vomiting, Constipation, Diarrhea, Bloody / black stool : denies: Dysuria, Frequency Skin: denies: Rash, Lesions Neurologic: denies: Near syncope, Altered mental status, Headache PD PAST MEDICAL HISTORY - Past Medical History Cardiovascular: Hypertension, High cholesterol, Coronary artery disease, [place], Valve disorder Respiratory: Pneumonia, Sleep apnea, CPAP use Neuro: None Endocrine/Autoimmune: None GI: None : Renal insuffiency Psych: None Musculoskeletal: None Derm: Eczema, Psoriasis - Past Surgical History Past Surgical History: Yes General: Cholecystectomy, Appendectomy, Hiatal hernia repair Cardiovascular: CABG, Coronary stent, Other HEENT: Tonsil/Adenoidectomy Derm: Skin cancer surgery - Present Medications Home Medications: Ambulatory Orders Medication Instructions Recorded Confirmed Atorvastatin Calcium [Lipitor] 80 mg PO DAILY 02/02/13 05/22/18 Fluticasone [Flonase] 1 sprays [place] DAILY 02/02/13 05/22/18 Furosemide [Lasix] 30 mg PO DAILY 02/02/13 05/22/18 Losartan [Cozaar] 25 mg PO DAILY 02/02/13 05/22/18 Isosorbide Mononitrate [Isosorbide 60 mg PO DAILY 03/29/14 05/22/18 Mononitrate ER] Aspirin [[place] Aspirin EC] 81 mg PO DAILY 01/09/18 05/22/18 Cholecalciferol [Vitamin D3] 5,000 unit PO DAILY 01/09/18 05/22/18 Cyclosporine [Restasis] 1 each EACHEYE BID 01/09/18 05/22/18 Esomeprazole Magnesium [Nexium 40 mg PO BID 01/09/18 05/22/18 24Hr] Folic Acid 2,400 mcg PO DAILY 01/09/18 05/22/18 Nitroglycerin [Nitrostat] 0.4 mg SL Q5MIN PRN 01/09/18 05/22/18 Cetirizine [ZyrTEC] 10 mg PO DAILY 05/22/18 05/22/18 Docusate Sodium 100 mg PO DAILY #15 capsule 05/27/19 Hydrocodone/Acetaminophen [[place] 1 each PO Q6H PRN #15 tablet 05/27/19 5-325 Tablet] Naproxen 375 mg PO BID #15 tablet 05/27/19 - Allergies Allergies/Adverse Reactions: Allergies Allergy/AdvReac Type Severity Reaction Status Date / Time Penicillins AdvReac Severe passed out Verified 01/14/18 08:33 codeine [Codeine] AdvReac Intermediate gi problems Verified 01/14/18 08:33 onion family Allergy Emesis Uncoded 01/15/18 11:00 - Social History Does the pt smoke?: No Smoking Status: Never smoker Does the pt drink ETOH?: Yes Does the pt have substance abuse?: No - Immunizations Immunizations are current?: No Immunizations: TDAP >10years/unknown - POLST Patient has POLST: No POLST Status: Full Code PD ED PE NORMAL - Vitals Vital signs reviewed: Yes - General General: Alert and oriented X 3, No acute distress, Well developed/nourished - HEENT HEENT: Pharynx benign - Neck Neck: Supple, no meningeal sign, No adenopathy - Cardiac Cardiac: RRR, No murmur, Other (prior sternotomy scar noted. ) - Respiratory Respiratory: Clear bilaterally - Abdomen Abdomen: Soft, No organomegaly, Other (mildly distended without tenseness. Bowel sounds diminished. No shifting dullness. Small soft umbilical hernia without tenderness. ) - Derm Derm: Normal color, Warm and dry - Extremities Extremities: No tenderness to palpate, No edema, No calf tenderness / cord Results - Vitals Vitals: Vital Signs - 24 hr 05/27/19 05/27/19 05/27/19 17:13 18:10 18:48 Temperature 36.4 C L Heart Rate 67 70 72 Respiratory 17 18 19 Rate Blood Pressure 171/56 H 153/77 H O2 Saturation 97 97 98 05/27/19 05/27/19 05/27/19 19:30 20:20 20:53 Temperature 36.5 C Heart Rate 84 72 80 Respiratory 18 17 18 Rate Blood Pressure 174/95 H 140/85 H 146/69 H O2 Saturation 97 97 99 05/27/19 05/27/19 05/28/19 21:24 23:00 00:41 Temperature 36.5 C Heart Rate 83 87 82 Respiratory 15 22 13 Rate Blood Pressure 175/101 H 175/94 H 164/79 H O2 Saturation 100 94 95 Oxygen O2 Source [] Room air O2 Source Room air - Labs Labs: Laboratory Tests 05/27/19 05/27/19 05/27/19 17:45 17:45 17:45 WBC 5.8 RBC 4.16 L Hgb 13.3 L Hct 40.6 L MCV 97.6 H MCH 32.0 H MCHC 32.8 RDW 13.5 Plt Count 172 MPV 9.2 Neut # (Auto) 2.8 Lymph # (Auto) 2.1 [place] # (Auto) 0.6 Eos # (Auto) 0.3 Baso # (Auto) 0.0 Absolute Nucleated RBC 0.00 Nucleated RBC % 0.0 Sodium Potassium Chloride Carbon Dioxide Anion Gap BUN Creatinine Estimated GFR (MDRD) Glucose Lactic Acid 1.4 Calcium Total Bilirubin AST ALT Alkaline Phosphatase Troponin I High Sens 17.9 Total Protein Albumin Globulin Albumin/Globulin Ratio Lipase Urine Color Urine Clarity Urine pH Ur Specific [place] Urine Protein Urine Glucose (UA) Urine Ketones Urine Occult Blood Urine Nitrite Urine Bilirubin Urine Urobilinogen Ur Leukocyte Esterase Urine RBC Urine WBC Ur Squamous Epith Cells Urine Bacteria Urine Mucus Ur Microscopic Review Urine Culture Comments 05/27/19 05/27/19 17:45 19:20 WBC RBC Hgb Hct MCV MCH MCHC RDW Plt Count MPV Neut # (Auto) Lymph # (Auto) [place] # (Auto) Eos # (Auto) Baso # (Auto) Absolute Nucleated RBC Nucleated RBC % Sodium 138 Potassium 3.7 Chloride 105 Carbon Dioxide 24 Anion Gap 9.0 BUN 35 H Creatinine 2.5 H Estimated GFR (MDRD) 25 L Glucose 99 Lactic Acid Calcium 9.8 Total Bilirubin 0.6 AST 21 ALT 19 Alkaline Phosphatase 91 Troponin I High Sens Total Protein 7.1 Albumin 4.0 Globulin 3.1 Albumin/Globulin Ratio 1.3 Lipase 33 Urine Color YELLOW Urine Clarity CLEAR Urine pH 6.0 Ur Specific [place] 1.020 Urine Protein 30 H Urine Glucose (UA) NEGATIVE Urine Ketones NEGATIVE Urine Occult Blood NEGATIVE Urine Nitrite NEGATIVE Urine Bilirubin NEGATIVE Urine Urobilinogen 0.2 (NORMAL) Ur Leukocyte Esterase NEGATIVE Urine RBC None Seen Urine WBC 0-3 Ur Squamous Epith Cells NONE SEEN Urine Bacteria None Seen Urine Mucus Few Strands Ur Microscopic Review INDICATED Urine Culture Comments NOT INDICATED - Rads (name of study) abd/pelvic CT Radiology: Prelim report reviewed (done without contrast due to renal failure chronically. No acute process. Significant aortic calcifications. Small fat containing umbilical hernia. ), See rad report aortic U/S Radiology: Prelim report reviewed (no acute process), See rad report PD MEDICAL DECISION MAKING - ED course Complexity details: re-evaluated patient (Perhaps some improvement with a GI cocktail. His lower to mid abdominal discomfort is still present. He is given some more morphine which helps considerably with the initial dose having only been 2 mg in the repeat dose 5 mg. I am still not sure of the cause of his discomfort. It does not sound like gastroenteritis. He does have vascular calcifications and we were not able to do a contrast CT due to his renal failure. There was no indirect signs of aortic process going on but I felt we could double check with a ultrasound as well.), considered differential (Consider partial obstruction versus diverticulitis versus vascular process or other considerations.), d/w patient Departure - Departure Disposition: 01 Home, Self Care Clinical Impression: Abdominal pain Qualifiers: Abdominal location: generalized Qualified Code(s): R10.84 - Generalized abdominal pain Condition: Stable Record reviewed to determine appropriate education?: Yes Instructions: ED Abdominal Pain Unkn Cause Follow-Up: Simone Xiao MD [Physician No Access] - Chang Cm MD [Primary Care Provider] - Prescriptions: Docusate Sodium 100 mg PO DAILY #15 capsule Hydrocodone/Acetaminophen [[place] 5-325 Tablet] 1 each PO Q6H PRN #15 tablet PRN Reason: Pain Naproxen 375 mg PO BID #15 tablet Comments: There was no identified cause of the pain based on the blood tests and CT scan and ultrasound. Relatively small aortic aneurysm as we discussed, but this is unlikely to be the cause of your symptoms today. Please follow-up with your primary care provider and mention this to your vascular surgeon as well. If you having worsening symptoms such as increasing abdominal pain, vomiting, blood in your stool, or any other concerning symptoms, please return to the emergency department. Dr. Licona prescribed some pain medication, take this sparingly and only if absolutely necessary, if you are needing multiple doses of pain medication for abdominal pain you should be reexamined. This medication is constipating so take the docusate as well. Do not drink alcohol or drive while taking narcotic pain medication. Note that many narcotic pain relievers also contain Tylenol/acetaminophen. Please ensure that your total dose of acetaminophen from all sources does not exceed 3 g (3000 mg) per day. You may get constipated while on this medication. Take a stool softener such as Colace twice a day while you are on it. Also add an cdxn-wfe-wjozols laxative such as senna or MiraLAX on any day that you do not have a bowel movement. If you received a narcotic pain medication or sedative while in the emergency department, do not drive for the next 24 hours. Discharge Date/Time: 05/28/19 01:17
[2019-05-27] MEDS ORDERED: ACETAMINOPHEN 1,000 MG/100 ML 100 ML IV STA (18:59)
[2019-05-27] MEDS ORDERED: SODIUM CHLORIDE 0.9% 1,000 ML IV ONE (18:59)
[2019-05-27 19:27] LABS: BILIRUBIN,URINE NEGATIVE (NEGATIVE); GLUCOSE, URINE (UA) NEGATIVE (NEGATIVE); KETONES,URINE (UA) NEGATIVE (NEGATIVE); LEUKOCYTE ESTERASE, URINE NEGATIVE (NEGATIVE); NITRITE,URINE NEGATIVE (NEGATIVE); OCCULT BLOOD,URINE NEGATIVE (NEGATIVE); PROTEIN,URINE 30 mg/dL (NEGATIVE); UROBILINOGEN,URINE 0.2 (NORMAL) E.U./dL (NORMAL)
[2019-05-27 19:40] LABS: BACTERIA,URINE None Seen /HPF (None Seen); CLARITY,URINE CLEAR (CLEAR); MUCUS,URINE Few Strands; RBC,URINE None Seen /HPF (0-5); SQUAMOUS EPITHELIAL CELL,UR NONE SEEN (<= Few)
--- NOTE | 2019-05-27 19:53 | CT Report ---
Reason: mid abd pain and bloating; CRF/low GFR Procedure Date: 05/27/2019 Accession Number: [id number] / [id number] Procedure: CT - Abdomen/Pelvis WO CPT Code: Final Report FULL RESULT: EXAM: CT ABDOMEN AND PELVIS (CT KUB) EXAM DATE: 05/27/2019 07:29 PM. CLINICAL HISTORY: Mid abdomen pain and bloating; CRF/low GFR. COMPARISONS: ABDOMEN/PELVIS W/O 01/17/2018 7:44 PM. TECHNIQUE: Routine axial helical CT imaging was performed through the abdomen and pelvis without IV contrast. Reconstructions: Coronal and sagittal. In accordance with CT protocol optimization, one or more of the following dose reduction techniques were utilized for this exam: automated exposure control, adjustment of mA and/or KV based on patient size, or use of iterative reconstructive technique. FINDINGS: Lung bases: Aortic valve calcification. Mitral valve prosthesis. Coronary artery calcifications. Left lower lobe 5 mm pulmonary nodule, unchanged from 2018 consistent with benign. Mild right middle lobe and lower lobe linear atelectasis or scarring. Liver: Unremarkable. Status post cholecystectomy. No bile duct dilatation is seen. Pancreas: Mild atrophy. Spleen: Unremarkable. Adrenals: Unremarkable. Kidneys: A few bilateral renal cysts, 1 of the largest is seen at the upper aspect measures 3.9 cm. No hydronephrosis. Bowel: No acute bowel findings are seen. Mild sigmoid diverticulosis. Moderate stool in the sigmoid colon and rectum. No free fluid or free air. Tiny fat-containing umbilical hernia. No free fluid or free air. Appendectomy. Pelvis: The bladder is decompressed. Bladder wall thickening is not excluded. Vasculature: Severe atherosclerotic calcification of the abdominal aorta. Ectatic infrarenal abdominal aorta measuring 2.8 cm. Bones: No acute bone findings. IMPRESSION: 1. No acute findings are seen. See chronic findings as above. RADIA
[2019-05-27] MEDS ORDERED: LIDOCAINE VISCOUS 2% 15 ML UDC MM STA (20:29)
[2019-05-27] MEDS ORDERED: MAG HYDROX/AL HYDROX/SIMETH 30 ML UDC PO STA (20:29)
[2019-05-27] MEDS ORDERED: MORPHINE 2 MG/ML CARPUJECT IVP STA (20:30)
[2019-05-27] MEDS ORDERED: MORPHINE 10 MG/ML VIAL IVP STA (20:58)
[2019-05-27] MEDS ORDERED: oxyCODONE/ACET 5/325 Prepack 4 PO STA (22:28)
--- NOTE | 2019-05-27 23:12 | ED Physician Documentation ---
ED Addendum - Addendum Addendum: Patient care assumed from Dr. Licona. 84 year old male with CKD, presenting with abdominal pain. Creatinine unchanged from baseline, labs are unremarkable, CT WO shows 2.8cm aneurysm. US aorta pending. If no signs of dissection may d/c home with outpatient follow up. Ultrasound aorta was unremarkable with no signs of dissection or large aneurysm. I reviewed patient's results his labs and his CT with him, he is feeling better, Has a benign abdominal exam, unremarkable vital signs, and is feeling well enough to go home. I discussed return precautions with him, including if he has increasing abdominal pain, persistent vomiting, blood in his stool, chest pain, or any other concerning symptoms. He agrees with this plan. I did discuss that the ultrasound and the CT without contrast are not as sensitive as a contrasted study to look for signs of abdominal aortic pathology, but given patient's CKD he is quite worried about contrast and would prefer to observe this at home, if he is having worsening he will return. He will follow-up with Dr. Cm and will call him tomorrow to discuss the results. I provided him with copies of his imaging and labs. He was provided with a prescription for stool softener and pain medication from Dr. Licona, I canceled his naproxen sc ript given his CKD. I reviewed side effects and risks of the medications. 05/28/19 01:08
--- NOTE | 2019-05-27 23:27 | Ultrasound Report ---
Reason: mid to lower abd pain; CT without acute process Procedure Date: 05/27/2019 Accession Number: [id number] / [id number] Procedure: US - Duplex Aorta Limited CPT Code: Final Report FULL RESULT: EXAM: AORTIC DOPPLER ULTRASOUND EXAM DATE: 05/27/2019 10:55 PM CLINICAL HISTORY: Mid to lower abdomen pain. COMPARISON: ABDOMEN/PELVIS W/O 05/27/2019 7:26 PM. TECHNIQUE: Real-time sonographic imaging of retroperitoneal vascular structures, including color-flow, Doppler flow and spectral analysis was performed by the product trainer. Multiple lead generation representative static images were saved for review. FINDINGS: Aorta: The abdominal aorta was adequately visualized. No evidence for abdominal aortic aneurysm. Aorta: Proximal: Sagittal AP 2.3 cm. Mid: Transverse 2.8 x 2.9 cm. Distal: Transverse 2.1 x 2.3 cm. Plaque visualized: Yes. Iliacs: Right Iliac: Transverse 1.1 x 1.2 cm. Left Iliac: Transverse 1.1 x 0.9 cm. Doppler: Prox Aorta PSV: 64 cm/sec. Mid Aorta PSV: 91 cm/sec. Dist Aorta PSV: 94 cm/sec. Prox RCIA PSV: 121 cm/sec. Prox LCIA PSV: 108 cm/sec. Iliac Vessels: The visualized proximal common iliac arteries are normal in caliber. Other: None. IMPRESSION: Normal. No abdominal aortic aneurysm. RADIA
[2019-05-28 00:41] VITALS: BP 164/79
== END 2019-05-28 01:17 | disposition home or self-care (01) ==
LOC: ED 17:09
DX: R10.84 Generalized abdominal pain (principal); I10 Essential (primary) hypertension
CPT/HCPCS: 36415; 74176; 80053; 81001; 83605; 83690; 84484; 85025; 93005; 93979; 96361; 96374; 96375; 99284; A9270; J0131; 81003; 87086

== ENCOUNTER 2019-06-15 10:18 | Outpatient (CLI) | payer MEDICARE, OTHER | END 2019-06-15 10:19 | disposition home or self-care (01) | LOC: SC 10:18 | PROVIDERS: ATTEND Nurse Practitioner Family | DX: Z53.9 Procedure and treatment not carried out, unspecified reason (principal) ==

== ENCOUNTER 2019-06-22 09:57 | Outpatient (CLI) | payer MEDICARE, OTHER ==
[2019-06-22 10:22] LABS: CALCIUM 9.9 mg/dL (8.5-10.3); CREATININE 2.4 mg/dL (0.6-1.2)
== END 2019-06-22 09:58 | disposition home or self-care (01) ==
LOC: LAB 09:57
PROVIDERS: ATTEND Internal Medicine Nephrology
DX: N18.4 Chronic kidney disease, stage 4 (severe) (principal)
CPT/HCPCS: 36415; 80048

== ENCOUNTER 2019-07-07 12:50 | Outpatient (CLI) | payer MEDICARE, OTHER | END 2019-07-07 12:51 | disposition short-term general hospital (02) | LOC: EMS 12:50 | PROVIDERS: ATTEND Surgery | DX: R07.9 Chest pain, unspecified (principal) | CPT/HCPCS: A0425; A0427 ==

== ENCOUNTER 2019-07-21 16:44 | Outpatient (CLI) | payer MEDICARE, OTHER ==
--- NOTE | 2019-07-21 11:27 | SLEEP CARE CONSULTATION ---
Information from patient questionnaire entered by Cecille Lange. I have reviewed and concur with the information entered by Cecille Lange. This document represents the service I personally performed and the decisions made by me, Alivia Vallejo MD, [facility]. History of Present Illness Service Date and Time: 07/21/2019 1120 Previous diagnosis: Moderate, Obstructive Sleep Apnea-Hypopnea Syndrome AHI: 23.4 Reason for follow up: six month Equipment type: BiPAP Equipment obtained from: [facility] additional information: To minimize the risk of COVID-19 exposure, the patient has requested and consented to this video telemedicine visit. The patient also agrees to having his insurance billed. HPI: Mr. Blair was called today to follow up on the BiPAP therapy. He was diagnosed to have moderate obstructive sleep apnea-hypopnea syndrome. The patient wears a full face mask. [employer] is his durable medical supplier. He reports using the device nightly and all through the night. The compliance report shows usage in 179 nights out of the past 180 nights, averaging 7.9 hours a night. The > 4 hour compliance rate for the past 180 days is 99.4%. He complained of no particular problem with the device such as soreness on the face, dry nose, epistaxis, nasal congestion or headache. He thinks that the pressure of 15/11 cmH2O is comfortable. On the BiPAP therapy he notices improvement in his sleep quality, and that he wakes up feeling fresher in the morning and more awake/alert during the day. He does not know if he snores because he sleeps in a separate bedroom from his . The average residual AHI is 3.5; and average time in large leak per day is 3 seconds. He reports weighing 192 lbs (was 215 lbs at the time of his sleep study in 2016). CPAP Compliance Data - Data Reviewed with Patient Average duration of nightly device use: 7h 44m Compliance rate %: 98.9 Current pressure setting (cmH2O): 15/11 Humidity settin Average residual AHI: 3.6 Average large leak: 5s Subjective Initial [place] Sleepiness Scale score: 18 Allergies and Home Medications Drug allergies reviewed: Yes Home medication list reviewed: Yes Review of Systems Review of systems same as previous: Yes Physical Exam Height: 5 ft 7 in Impression and Plan IMPRESSION: 1. Obstructive Sleep Apnea-Hypopnea Syndrome, moderate (AHI was 23.4), with the patient doing well on BiPAP therapy. He has excellent compliance and significant clinical improvement. The current pressure appears effective and comfortable. His full face mask fits well. Overall, he is very satisfied with treatment and plans to continue with it long-term. No adjustment is necessary today. PLAN: 1. Continue with BiPAP set at 15/11 cmH2O. 2. Try to lose more weight 3. Return for a follow up in 2 3 months to possibly have another in-laboratory polysomnography to see if the sleep-disordered breathing has improved from the weight loss. Visit Type: Telehealth Video Video Type: Appy Couple Location of Provider: Home Patient agrees and consents to this telehealth visit type: Yes Time Spent with Patient (minutes): 15 Provider Statement: I spent 100% of the Telehealth Video Call with the patient with greater than 50% spent counseling the patient and coordination of care.
== END 2019-07-21 16:45 | disposition home or self-care (01) ==
LOC: SC 16:44
PROVIDERS: ATTEND Internal Medicine Pulmonary Disease
DX: G47.33 Obstructive sleep apnea (adult) (pediatric) (principal)
CPT/HCPCS: 99212; 99213

== ENCOUNTER 2019-08-20 12:25 | Outpatient (CLI) | payer MEDICARE, OTHER ==
[2019-08-20 14:19] LABS: BILIRUBIN,URINE NEGATIVE (NEGATIVE); GLUCOSE, URINE (UA) NEGATIVE (NEGATIVE); KETONES,URINE (UA) NEGATIVE (NEGATIVE); LEUKOCYTE ESTERASE, URINE NEGATIVE (NEGATIVE); NITRITE,URINE NEGATIVE (NEGATIVE); OCCULT BLOOD,URINE NEGATIVE (NEGATIVE); PH,URINE 5.5 PH (5.0-7.5); PROTEIN,URINE NEGATIVE (NEGATIVE); UROBILINOGEN,URINE 0.2 (NORMAL) E.U./dL (NORMAL)
[2019-08-20 14:32] LABS: BACTERIA,URINE Rare /HPF (None Seen); CLARITY,URINE CLEAR (CLEAR); RBC,URINE 0-5 /HPF (0-5); SQUAMOUS EPITHELIAL CELL,UR RARE Squamous (<= Few)
[2019-08-20 14:42] LABS: CREATININE,URINE 77.1 mg/dL; MICROALBUM/CREATININE RATIO,UR 72.6 ug/mg (<30.0); MICROALBUMIN,URINE 5.6 mg/dL (0-300.0)
== END 2019-08-20 12:26 | disposition home or self-care (01) ==
LOC: LAB 12:25
PROVIDERS: ATTEND Internal Medicine Nephrology
DX: N18.4 Chronic kidney disease, stage 4 (severe) (principal)
CPT/HCPCS: 36415; 81001; 82043; 82306; 82570; 83970; 84550

== ENCOUNTER 2019-08-25 12:13 | Outpatient (CLI) | payer MEDICARE, OTHER ==
[2019-08-25 12:43] LABS: CALCIUM 10.2 mg/dL (8.5-10.3); CREATININE 2.5 mg/dL (0.6-1.2)
== END 2019-08-25 12:14 | disposition home or self-care (01) ==
LOC: LAB 12:13
PROVIDERS: ATTEND Internal Medicine Nephrology
DX: N18.4 Chronic kidney disease, stage 4 (severe) (principal)
CPT/HCPCS: 36415; 80048

== ENCOUNTER 2019-10-13 09:22 | Outpatient (CLI) | payer MEDICARE, OTHER ==
[2019-10-13 10:03] LABS: CREATININE 2.5 mg/dL (0.6-1.2); MAGNESIUM 2.2 mg/dL (1.7-2.8)
[2019-10-13 10:58] LABS: CREATININE,URINE 110.5 mg/dL; MICROALBUM/CREATININE RATIO,UR 30.8 ug/mg (<30.0); MICROALBUMIN,URINE 3.4 mg/dL (0-300.0)
== END 2019-10-13 09:23 | disposition home or self-care (01) ==
LOC: LAB 09:22
PROVIDERS: ATTEND Internal Medicine Nephrology
DX: E83.52 Hypercalcemia (principal); N18.4 Chronic kidney disease, stage 4 (severe)
CPT/HCPCS: 36415; 80048; 82043; 82306; 82570; 83735; 83970

== ENCOUNTER 2019-10-26 11:13 | Outpatient (CLI) | payer MEDICARE, OTHER ==
[2019-10-26 12:15] VITALS: BP 140/80
--- NOTE | 2019-10-26 12:15 | SLEEP CARE CONSULTATION ---
Information from patient questionnaire entered by Cecille Lange. I have reviewed and concur with the information entered by Cecille Lange. This document represents the service I personally performed and the decisions made by me, Adilene Gregory, RN, MSN, [employer]. History of Present Illness Service Date and Time: 10/26/2019 1113 Previous diagnosis: Moderate, Obstructive Sleep Apnea-Hypopnea Syndrome AHI: 23.4 Reason for follow up: three month Equipment type: BiPAP Equipment obtained from: [facility] (note from [facility] that he owed money/reposses machine/ so he called Medicare/ letter of compliance needed and called here/ clarified / computer error -then able to order supplies) Mask style: Full face Backup mask available: Yes (old mask ) Last cushion change: a week ago Prior sleep studies: Yes Year and Where: 2015 [facility] Type of Sleep Study: Polysomnography HPI additional information: Saw consumer marketing manager for weight loss and renal disease but still gaining weight. CPAP Compliance Data - Data Reviewed with Patient Average duration of nightly device use: 7h 20m Compliance rate %: 100 Current pressure setting (cmH2O): 15/11 Humidity settin Average residual AHI: 2.4 Average large leak: 1m 19s Subjective Patient concerns: reports: air blowing in eyes, mask leak noise (and mask in mouth with new cushions. ), dry mouth, nose, throat (since new cushion), other (old CPAP needs to have pressure adjusted to use at recliner ). denies: aerophagia, mask discomfort, condensation in mask/hose, nasal congestion, epistaxis Observed to snore while using device: No (sleeps separately from spouse) Current pressure setting perceived as: comfortable (but too low when supine) On therapy, patient: reports: sleeping better, drowsiness while driving (if drowsy , pulls over to rest ). 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 Obstructive Sleep Apnea-Hypopnea Syndrome, moderate, with good treatment compliance and good apnea control. On CPAP therapy, the patient has better sleep quality but continues to have fatigue and excessive daytime sleepiness during the day. To reduce waking nightly to apnea when supine, I will increase his BiPAP pressure to 17/34mmO10. He is to contact me if the new pressure does not resolve air hunger in supine position. Hopefully this will reduce fragmentation of sleep and improvement restfulness. He has been trying to lose weight and saw a consumer marketing manager but has instead gained weight. However, his 2016 polysomnography weight was 215 and his current weight is 199. If loses 20 or more pounds, he may need to have his BiPAP pressure reduced if pressure discomfort, aerophagia or reduced sleep quality with rationale discussed and advised to contact this office. For his mask concerns, a mask refitting will ordered. FDA warning about ozone CPAP automotive exhaust emissions technician discussed due to residual [place] that could cause health risks. He is instead advised to clean mask daily with soap and water and rest of equipment weekly per picture hanger. He can check FDA site for further explanation. Patient's apnea severity and rationale for treatment to reduce apnea, improve sleep quality and reduce cardiovascular and cerebrovascular events was reviewed. I also reviewed the benefit of consistent device use of BiPap for hypertension, cardiac disease, migraines. 2. Excessive daytime sleepiness , fatigue: continues to doze when watching TV or any sedentary activity, so supervisor continuous weld pipe mill advised strongly to use his BiPAP when watching TV. I also reviewed rationale of benefit and will order his old Bi PAP to be set at current pressure to be used at his recliner so has available when needed. I also advised him to discussed his fatigue with his dynamics ax developer and PCP as well to determine etiology. He is also to discuss blood pressure mo nitoring guidelines with his dynamics ax developer at appointment this week with rationale. Currentlly he takes his blood pressure randomly despite having a note on his computer so discussed methods to remember to take his blood pressure. I will also order an overnight pulse oximetry to check him for hypoxia to see if possible contributing cause of his hypersomnia. If positive, a manual titration study will be completed for further evaluation. * Change BiPAP pressure to 17/13 cmH2O * Set old BiPAP at same pressure for use at recliner. * overnight pulse oximetry with BiPAP * Notify me if snoring with mask or feeling that the pressure is too much or too little * Attempt to lose weight * Follow up with dynamics ax developer, PCP re fatigue and BP monitoring as discussed * Call this office if any problems using CPAP * Return for follow up in 1 year , or sooner if concerns arise Visit Type: In Office Time Spent with Patient (minutes): 45 Provider Statement: I spent 100% of the Face to Face Visit with the patient with greater than 50% spent counseling the patient and coordination of care.
== END 2019-10-26 11:14 | disposition home or self-care (01) ==
LOC: SC 11:13
PROVIDERS: ATTEND Nurse Practitioner Family
DX: G47.33 Obstructive sleep apnea (adult) (pediatric) (principal); E66.9 Obesity, unspecified; Z68.31 Body mass index [BMI] 31.0-31.9, adult; G47.10 Hypersomnia, unspecified; R53.83 Other fatigue
CPT/HCPCS: 99215; G0463; 99212

== ENCOUNTER 2019-10-29 09:43 | Outpatient (CLI) | payer MEDICARE, OTHER ==
[2019-10-29 12:05] LABS: BASOPHILS % (AUTO) 0.5 %; EOSINOPHILS # (AUTO) 0.2 10^3/uL (0.0-0.7); EOSINOPHILS % (AUTO) 5.4 %; LYMPHOCYTES # (AUTO) 1.2 10^3/uL (1.5-3.5); LYMPHOCYTES % (AUTO) 28.1 %; MEAN CORPUSCULAR HEMOGLOBIN 33.4 pg (27.0-31.0); MEAN CORPUSCULAR HGB CONC 31.8 g/dL (32.0-36.0); MEAN PLATELET VOLUME 9.6 fL (7.4-11.4); MONOCYTES # (AUTO) 0.4 10^3/uL (0.0-1.0); NEUTROPHILS # (AUTO) 2.4 10^3/uL (1.5-6.6); NEUTROPHILS % (AUTO) 55.3 %; PLT - PLATELET COUNT 167 10^3/uL (130-450); RED BLOOD COUNT 3.59 10^6/uL (4.70-6.10); RED CELL DISTRIBUTION WIDTH 13.3 % (12.0-15.0); WHITE BLOOD COUNT 4.4 x10^3/uL (4.8-10.8)
== END 2019-10-29 23:59 | disposition home or self-care (01) ==
LOC: LAB.WCP 09:43
PROVIDERS: ATTEND Family Medicine
DX: R06.09 Other forms of dyspnea (principal)
CPT/HCPCS: 36415; 83880; 84443; 85025

== ENCOUNTER 2019-12-31 13:38 | Outpatient (CLI) | payer MEDICARE, OTHER ==
[2019-12-31 14:04] LABS: BASOPHILS % (AUTO) 0.6 %; EOSINOPHILS # (AUTO) 0.2 10^3/uL (0.0-0.7); EOSINOPHILS % (AUTO) 4.8 %; LYMPHOCYTES # (AUTO) 1.3 10^3/uL (1.5-3.5); LYMPHOCYTES % (AUTO) 25.7 %; MEAN CORPUSCULAR HEMOGLOBIN 34.2 pg (27.0-31.0); MEAN CORPUSCULAR HGB CONC 32.6 g/dL (32.0-36.0); MEAN PLATELET VOLUME 8.6 fL (7.4-11.4); MONOCYTES # (AUTO) 0.6 10^3/uL (0.0-1.0); MONOCYTES % (AUTO) 11.4 %; NEUTROPHILS # (AUTO) 2.9 10^3/uL (1.5-6.6); NEUTROPHILS % (AUTO) 57.3 %; PLT - PLATELET COUNT 185 10^3/uL (130-450); RED CELL DISTRIBUTION WIDTH 13.3 % (12.0-15.0)
[2019-12-31 14:16] LABS: CALCIUM 10.1 mg/dL (8.5-10.3); CREATININE 2.2 mg/dL (0.6-1.2); MAGNESIUM 2.1 mg/dL (1.7-2.8); PHOSPHORUS 2.8 mg/dL (2.5-4.6); URIC ACID 7.3 mg/dL (2.6-7.2)
[2019-12-31 14:18] LABS: CREATININE,URINE 199.1 mg/dL; MICROALBUM/CREATININE RATIO,UR 152.2 ug/mg (<30.0); MICROALBUMIN,URINE 30.3 mg/dL (0-300.0)
== END 2019-12-31 13:39 | disposition home or self-care (01) ==
LOC: LAB 13:38
PROVIDERS: ATTEND Internal Medicine Nephrology
DX: N18.4 Chronic kidney disease, stage 4 (severe) (principal)
CPT/HCPCS: 36415; 80048; 82043; 82570; 83735; 83970; 84100; 84550; 85025

== ENCOUNTER 2020-02-04 09:31 | Outpatient (CLI) | payer MEDICARE, OTHER ==
[2020-02-04 10:05] LABS: CALCIUM 10.2 mg/dL (8.5-10.3); CREATININE 2.2 mg/dL (0.6-1.2)
[2020-02-04 10:17] LABS: CREATININE,URINE 147.2 mg/dL; MICROALBUM/CREATININE RATIO,UR 43.5 ug/mg (<30.0); MICROALBUMIN,URINE 6.4 mg/dL (0-300.0)
== END 2020-02-04 09:32 | disposition home or self-care (01) ==
LOC: LAB 09:31
PROVIDERS: ATTEND Internal Medicine Nephrology
DX: N18.4 Chronic kidney disease, stage 4 (severe) (principal); E83.9 Disorder of mineral metabolism, unspecified; M89.9 Disorder of bone, unspecified; E55.9 Vitamin D deficiency, unspecified
CPT/HCPCS: 36415; 80048; 82043; 82306; 82570; 84100

== ENCOUNTER 2020-04-06 07:00 | Outpatient (CLI) | payer MEDICARE, OTHER ==
[2020-04-06 09:51] LABS: CALCIUM 10.3 mg/dL (8.5-10.3); CREATININE 2.6 mg/dL (0.6-1.2); PHOSPHORUS 3.2 mg/dL (2.5-4.6); URIC ACID 7.3 mg/dL (2.6-7.2)
[2020-04-06 10:39] LABS: CREATININE,URINE 133.8 mg/dL; MICROALBUM/CREATININE RATIO,UR 32.9 ug/mg (<30.0); MICROALBUMIN,URINE 4.4 mg/dL (0-300.0)
== END 2020-04-06 23:59 | disposition home or self-care (01) ==
LOC: LAB 07:00
PROVIDERS: ATTEND Internal Medicine Nephrology
DX: N18.4 Chronic kidney disease, stage 4 (severe) (principal)
CPT/HCPCS: 36415; 80048; 82043; 82570; 83970; 84100; 84550

== ENCOUNTER 2020-05-25 09:10 | Outpatient (CLI) | payer MEDICARE, OTHER ==
[2020-05-25 09:30] LABS: BASOPHILS % (AUTO) 0.2 %; EOSINOPHILS # (AUTO) 0.2 10^3/uL (0.0-0.7); EOSINOPHILS % (AUTO) 4.4 %; LYMPHOCYTES # (AUTO) 1.4 10^3/uL (1.5-3.5); LYMPHOCYTES % (AUTO) 30.1 %; MEAN CORPUSCULAR HEMOGLOBIN 33.6 pg (27.0-31.0); MEAN CORPUSCULAR HGB CONC 33.1 g/dL (32.0-36.0); MEAN CORPUSCULAR VOLUME 101.6 fL (80.0-94.0); MEAN PLATELET VOLUME 8.7 fL (7.4-11.4); MONOCYTES # (AUTO) 0.4 10^3/uL (0.0-1.0); NEUTROPHILS # (AUTO) 2.6 10^3/uL (1.5-6.6); NEUTROPHILS % (AUTO) 56.1 %; PLT - PLATELET COUNT 164 10^3/uL (130-450); RED BLOOD COUNT 3.87 10^6/uL (4.70-6.10); RED CELL DISTRIBUTION WIDTH 14.1 % (12.0-15.0); WHITE BLOOD COUNT 4.6 x10^3/uL (4.8-10.8)
[2020-05-25 09:49] LABS: ALBUMIN 4.1 g/dL (3.2-5.5); ALBUMIN/GLOBULIN RATIO 1.4 (1.0-2.2); ALKALINE PHOSPHATASE 108 IU/L (42-121); ALT ALANINE AMINOTRANSFERASE 19 IU/L (10-60); AST ASPARTATE AMINOTRANSFERASE 22 IU/L (10-42); BILIRUBIN,TOTAL 0.6 mg/dL (0.2-1.0); BUN - BLOOD UREA NITROGEN 34 mg/dL (6-20); CALCIUM 10.3 mg/dL (8.5-10.3); CARBON DIOXIDE - CO2 27 mmol/L (21-32); CHLORIDE 105 mmol/L (101-111); CHOLESTEROL 176 mg/dL; CREATININE 2.4 mg/dL (0.6-1.2); GLUCOSE 124 mg/dL (70-100); HDL CHOLESTEROL 44 mg/dL; LDL CHOLESTEROL,CALCULATED 104 mg/dL; LDL/HDL RATIO 2.4 (<3.6); VLDL CHOLESTEROL 28 mg/dL
[2020-05-25 15:10] LABS: HEMOGLOBIN A1c% 6.2 % (4.27-6.07)
== END 2020-05-25 09:11 | disposition home or self-care (01) ==
LOC: LAB 09:10
PROVIDERS: ATTEND Physician Assistant Medical
DX: E78.5 Hyperlipidemia, unspecified (principal); R73.02 Impaired glucose tolerance (oral); R53.83 Other fatigue; D63.1 Anemia in chronic kidney disease
CPT/HCPCS: 36415; 80053; 80061; 82607; 82746; 83036; 83721; 84443; 85025

== ENCOUNTER 2020-06-27 22:23 | Outpatient (CLI) | payer MEDICARE, OTHER | END 2020-06-27 22:24 | disposition EMS.NT | LOC: EMS 22:23 | DX: R07.9 Chest pain, unspecified (principal); M79.602 Pain in left arm ==

== ENCOUNTER 2020-07-15 09:34 | Outpatient (CLI) | payer MEDICARE, OTHER ==
[2020-07-15 10:01] LABS: BASOPHILS % (AUTO) 0.4 %; EOSINOPHILS # (AUTO) 0.2 10^3/uL (0.0-0.7); EOSINOPHILS % (AUTO) 3.6 %; HGB - HEMOGLOBIN 13.1 g/dL (14.0-18.0); LYMPHOCYTES # (AUTO) 1.4 10^3/uL (1.5-3.5); LYMPHOCYTES % (AUTO) 27.5 %; MEAN CORPUSCULAR HEMOGLOBIN 33.9 pg (27.0-31.0); MEAN CORPUSCULAR HGB CONC 33.6 g/dL (32.0-36.0); MEAN PLATELET VOLUME 8.8 fL (7.4-11.4); MONOCYTES # (AUTO) 0.4 10^3/uL (0.0-1.0); MONOCYTES % (AUTO) 8.5 %; NEUTROPHILS % (AUTO) 59.6 %; PLT - PLATELET COUNT 154 10^3/uL (130-450); RED BLOOD COUNT 3.86 10^6/uL (4.70-6.10); RED CELL DISTRIBUTION WIDTH 13.4 % (12.0-15.0)
[2020-07-15 10:02] LABS: BILIRUBIN,URINE NEGATIVE (NEGATIVE); GLUCOSE, URINE (UA) NEGATIVE (NEGATIVE); KETONES,URINE (UA) NEGATIVE (NEGATIVE); LEUKOCYTE ESTERASE, URINE NEGATIVE (NEGATIVE); NITRITE,URINE NEGATIVE (NEGATIVE); OCCULT BLOOD,URINE NEGATIVE (NEGATIVE); PROTEIN,URINE NEGATIVE (NEGATIVE); UROBILINOGEN,URINE 1 (NORMAL) E.U./dL (NORMAL)
[2020-07-15 10:12] LABS: CREATININE,URINE 169.8 mg/dL; MICROALBUM/CREATININE RATIO,UR 15.9 ug/mg (<30.0); MICROALBUMIN,URINE 2.7 mg/dL (0-300.0)
[2020-07-15 10:13] LABS: BACTERIA,URINE None Seen /HPF (None Seen); CLARITY,URINE CLEAR (CLEAR); RBC,URINE None Seen /HPF (0-5); SQUAMOUS EPITHELIAL CELL,UR NONE SEEN (<= Few); WBC,URINE 0-3 /HPF (0-3)
[2020-07-15 10:15] LABS: CALCIUM 10.2 mg/dL (8.5-10.3); CREATININE 2.6 mg/dL (0.6-1.2); MAGNESIUM 2.2 mg/dL (1.7-2.8); PHOSPHORUS 2.7 mg/dL (2.5-4.6); POTASSIUM 4.3 mmol/L (3.5-5.0); URIC ACID 8.1 mg/dL (2.6-7.2)
== END 2020-07-15 09:35 | disposition home or self-care (01) ==
LOC: LAB 09:34
PROVIDERS: ATTEND Internal Medicine Nephrology
DX: N18.4 Chronic kidney disease, stage 4 (severe) (principal)
CPT/HCPCS: 36415; 80048; 81001; 82043; 82570; 83735; 83970; 84100; 84550; 85025

== ENCOUNTER 2020-08-05 12:48 | Outpatient (CLI) | payer MEDICARE, OTHER | END 2020-08-05 12:49 | disposition home or self-care (01) | LOC: COV 12:48 | PROVIDERS: ATTEND Ophthalmology | DX: Z01.812 Encounter for preprocedural laboratory examination (principal); Z20.822 Contact with and (suspected) exposure to COVID-19 ==

== ENCOUNTER 2020-08-20 07:38 | Outpatient (CLI) | payer MEDICARE, OTHER ==
[2020-08-20 08:02] LABS: BASOPHILS % (AUTO) 0.6 %; EOSINOPHILS # (AUTO) 0.2 10^3/uL (0.0-0.7); EOSINOPHILS % (AUTO) 3.4 %; HCT - HEMATOCRIT 38.5 % (42.0-52.0); HGB - HEMOGLOBIN 12.8 g/dL (14.0-18.0); LYMPHOCYTES # (AUTO) 1.6 10^3/uL (1.5-3.5); LYMPHOCYTES % (AUTO) 28.9 %; MEAN CORPUSCULAR HEMOGLOBIN 34.6 pg (27.0-31.0); MEAN CORPUSCULAR HGB CONC 33.2 g/dL (32.0-36.0); MEAN CORPUSCULAR VOLUME 104.1 fL (80.0-94.0); MEAN PLATELET VOLUME 8.8 fL (7.4-11.4); MONOCYTES # (AUTO) 0.5 10^3/uL (0.0-1.0); MONOCYTES % (AUTO) 8.9 %; NEUTROPHILS # (AUTO) 3.1 10^3/uL (1.5-6.6); NEUTROPHILS % (AUTO) 57.8 %; PLT - PLATELET COUNT 169 10^3/uL (130-450); RED CELL DISTRIBUTION WIDTH 13.1 % (12.0-15.0); WHITE BLOOD COUNT 5.4 x10^3/uL (4.8-10.8)
[2020-08-20 08:20] LABS: ALBUMIN 3.9 g/dL (3.2-5.5); ALBUMIN/GLOBULIN RATIO 1.4 (1.0-2.2); ALKALINE PHOSPHATASE 96 IU/L (42-121); ALT ALANINE AMINOTRANSFERASE 21 IU/L (10-60); AST ASPARTATE AMINOTRANSFERASE 22 IU/L (10-42); BILIRUBIN,TOTAL 0.7 mg/dL (0.2-1.0); BUN - BLOOD UREA NITROGEN 40 mg/dL (6-20); CALCIUM 10.1 mg/dL (8.5-10.3); CARBON DIOXIDE - CO2 27 mmol/L (21-32); CHLORIDE 104 mmol/L (101-111); CHOL/HDL RATIO 3.9 (<5.0); CHOLESTEROL 158 mg/dL; CREATININE 2.4 mg/dL (0.6-1.2); GFR - MDRD 26 (>89); GLUCOSE 116 mg/dL (70-100); HDL CHOLESTEROL 41 mg/dL; LDL CHOLESTEROL,CALCULATED 80 mg/dL; POTASSIUM 4.5 mmol/L (3.5-5.0); SODIUM 139 mmol/L (135-145); TOTAL PROTEIN 6.7 g/dL (6.7-8.2); TRIGLYCERIDES 184 mg/dL; VLDL CHOLESTEROL 37 mg/dL
[2020-08-20 08:31] LABS: THYROID STIMULATING HORMONE 2.38 uIU/mL (0.34-5.60)
[2020-08-20 08:42] LABS: FOLATE 8.54 ng/mL (5.90 - >24.8)
[2020-08-20 10:07] LABS: ESTIMATED AVERAGE GLUCOSE 120 mg/dL (70-100); HEMOGLOBIN A1c% 5.8 % (4.27-6.07)
== END 2020-08-20 07:39 | disposition home or self-care (01) ==
LOC: LAB 07:38
PROVIDERS: ATTEND Physician Assistant Medical
DX: E78.5 Hyperlipidemia, unspecified (principal); R53.83 Other fatigue; D63.1 Anemia in chronic kidney disease; R73.02 Impaired glucose tolerance (oral)
CPT/HCPCS: 36415; 80053; 80061; 82607; 82746; 83036; 83721; 84443; 85025

== ENCOUNTER 2020-09-20 14:50 | Outpatient (CLI) | payer MEDICARE, OTHER ==
--- NOTE | 2020-09-20 15:12 | SLEEP CARE CONSULTATION ---
Information from patient questionnaire entered by Flor Borjas. I have reviewed and concur with the information entered by Flor Borjas. This document represents the service I personally performed and the decisions made by , Cydney Prakash ARNP. History of Present Illness Service Date and Time: 09/20/2020 1450 Previous diagnosis: Moderate, Obstructive Sleep Apnea-Hypopnea Syndrome AHI: 23.4 (in 2015) Reason for follow up: annual (last seen ) Equipment type: BiPAP Equipment obtained from: [id number] (wants to switch to [employer]) Mask style: Full face Mask brand: Resmed Backup mask available: Yes (old mask) Last cushion change: 1 month Prior sleep studies: Yes Year and Where: 2015 - [facility]; 2001 - [facility] Type of Sleep Study: Polysomnography HPI additional information: ANDRES VALLADARES was diagnosed to have moderate, AHI 23.4, obstructive sleep apnea- hypopnea syndrome and returned today for BIPAP therapy 11 month, transfer DME follow-up. CPAP Compliance Data - Data Reviewed with Patient Average duration of nightly device use: 6 hr 39 min Compliance rate %: 97.2 (180 days) Current pressure setting (cmH2O): 17/13 Humidity settin Heated hose settin Average residual AHI: 3.3 Average large leak: 9 min 25 sec Subjective Patient concerns: reports: mask leak noise. denies: aerophagia, mask discomfort, air blowing in eyes, condensation in mask/hose, nasal congestion, dry mouth, nose, throat, epistaxis, other Observed to snore while using device: No Current pressure setting perceived as: comfortable On therapy, patient: reports: other (He does not feel more rested with using the BIPAP) Initial [place] Sleepiness Scale score: 20 (in 2008) Current [place] Sleepiness Scale score: 20 Allergies and Home Medications Home medication list reviewed: Yes (no new meds) Review of Systems Review of systems same as previous: No (two eye surgeries) Physical Exam Heart Rate: 54 O2 Saturation: 94 Height: 5 ft 7 in Weight: 199 lb Body Mass Index: 31.1 BMI Classification: Obese Impression and Plan 1. Obstructive Sleep Apnea-Hypopnea Syndrome, moderate, with good treatment compliance and good apnea control. On BIPAP therapy, the patient has better sleep quality and is more rested overall. Patient has no complaints with BiPAP use. He does not like his current DME supplier and would like to change back to [employer] whom he has used in the past. Patient was notified that another DME can be used. I will have my marketing technology coordinator inform of DME options. A DWO prescription will then be made. Patient advised to contact this office if further supply problems. Patient unable to exercise right now due to occasional chest pains that he is having checked out by cardiology. He will get back to exercising to be able to lose weight as soon as he is able. Patient's apnea severity and rationale for treatment to reduce apnea, improve sleep quality and reduce cardiovascular and cerebrovascular events was reviewed. I also reviewed the benefit of consistent device use of BIPAP for hypertension, cardiac disease and migraines. * Continue BIPAP pressure at 17/13 cmH2O * Updates supplies * Transfer DME * Notify me if snoring with mask or feeling that the pressure is too much or too little * Attempt to lose weight when safe to do so * Call this office if any problems using BIPAP * Return for follow up in 1 year, or sooner if concerns arise Counseling Topics: Spare mask, Weight loss health impact Visit Type: In Office Time Spent with Patient (minutes): 12 Provider Statement: I spent 100% of the Face to Face Visit with the patient with greater than 50% spent counseling the patient and coordination of care.
== END 2020-09-20 14:51 | disposition home or self-care (01) ==
LOC: SC 14:50
PROVIDERS: ATTEND Nurse Practitioner Family
DX: G47.33 Obstructive sleep apnea (adult) (pediatric) (principal); E66.9 Obesity, unspecified; Z68.31 Body mass index [BMI] 31.0-31.9, adult
CPT/HCPCS: 99212; G0463

== ENCOUNTER 2020-10-18 08:12 | Outpatient (CLI) | payer MEDICARE, OTHER ==
[2020-10-18 09:06] LABS: BASOPHILS % (AUTO) 0.6 %; EOSINOPHILS # (AUTO) 0.3 10^3/uL (0.0-0.7); HCT - HEMATOCRIT 37.9 % (42.0-52.0); HGB - HEMOGLOBIN 12.9 g/dL (14.0-18.0); LYMPHOCYTES # (AUTO) 1.4 10^3/uL (1.5-3.5); LYMPHOCYTES % (AUTO) 29.3 %; MEAN CORPUSCULAR VOLUME 102.7 fL (80.0-94.0); MEAN PLATELET VOLUME 8.9 fL (7.4-11.4); MONOCYTES # (AUTO) 0.4 10^3/uL (0.0-1.0); MONOCYTES % (AUTO) 8.8 %; NEUTROPHILS # (AUTO) 2.6 10^3/uL (1.5-6.6); NEUTROPHILS % (AUTO) 54.9 %; PLT - PLATELET COUNT 166 10^3/uL (130-450); RED BLOOD COUNT 3.69 10^6/uL (4.70-6.10); WHITE BLOOD COUNT 4.7 x10^3/uL (4.8-10.8)
[2020-10-18 09:15] LABS: CREATININE 2.3 mg/dL (0.6-1.2); MAGNESIUM 2.2 mg/dL (1.7-2.8); POTASSIUM 3.8 mmol/L (3.5-5.0)
[2020-10-18 09:36] LABS: BILIRUBIN,URINE NEGATIVE (NEGATIVE); CLARITY,URINE CLEAR (CLEAR); GLUCOSE, URINE (UA) NEGATIVE (NEGATIVE); KETONES,URINE (UA) NEGATIVE (NEGATIVE); LEUKOCYTE ESTERASE, URINE NEGATIVE (NEGATIVE); NITRITE,URINE NEGATIVE (NEGATIVE); OCCULT BLOOD,URINE NEGATIVE (NEGATIVE); PROTEIN,URINE NEGATIVE (NEGATIVE); UROBILINOGEN,URINE 0.2 (NORMAL) E.U./dL (NORMAL)
[2020-10-18 09:55] LABS: PHOSPHORUS 2.9 mg/dL (2.5-4.6); URIC ACID 7.7 mg/dL (2.6-7.2)
[2020-10-18 09:56] LABS: CREATININE,URINE 80.5 mg/dL; MICROALBUM/CREATININE RATIO,UR 14.9 ug/mg (<30.0); MICROALBUMIN,URINE 1.2 mg/dL (0-300.0)
== END 2020-10-18 08:13 | disposition home or self-care (01) ==
LOC: LAB 08:12
PROVIDERS: ATTEND Internal Medicine Nephrology
DX: N18.4 Chronic kidney disease, stage 4 (severe) (principal)
CPT/HCPCS: 36415; 80048; 81001; 81003; 82043; 82306; 82570; 83735; 83970; 84100; 84550; 85025

== ENCOUNTER 2020-11-01 08:00 | Outpatient (CLI) | payer MEDICARE, OTHER ==
[2020-11-01 18:18] LABS: BASOPHILS % (AUTO) 0.4 %; EOSINOPHILS # (AUTO) 0.2 10^3/uL (0.0-0.7); EOSINOPHILS % (AUTO) 2.5 %; HCT - HEMATOCRIT 38.8 % (42.0-52.0); HGB - HEMOGLOBIN 12.7 g/dL (14.0-18.0); LYMPHOCYTES # (AUTO) 1.5 10^3/uL (1.5-3.5); LYMPHOCYTES % (AUTO) 18.8 %; MEAN CORPUSCULAR HEMOGLOBIN 33.9 pg (27.0-31.0); MEAN CORPUSCULAR HGB CONC 32.7 g/dL (32.0-36.0); MEAN CORPUSCULAR VOLUME 103.5 fL (80.0-94.0); MEAN PLATELET VOLUME 9.2 fL (7.4-11.4); MONOCYTES # (AUTO) 0.8 10^3/uL (0.0-1.0); MONOCYTES % (AUTO) 10.4 %; NEUTROPHILS # (AUTO) 5.4 10^3/uL (1.5-6.6); NEUTROPHILS % (AUTO) 67.4 %; PLT - PLATELET COUNT 167 10^3/uL (130-450); RED BLOOD COUNT 3.75 10^6/uL (4.70-6.10); RED CELL DISTRIBUTION WIDTH 13.1 % (12.0-15.0); WHITE BLOOD COUNT 8.1 x10^3/uL (4.8-10.8)
[2020-11-01 18:41] LABS: ALBUMIN/GLOBULIN RATIO 1.4 (1.0-2.2); BILIRUBIN,TOTAL 1.6 mg/dL (0.2-1.0); CALCIUM 10.2 mg/dL (8.5-10.3); CREATININE 2.8 mg/dL (0.6-1.2); POTASSIUM 4.6 mmol/L (3.5-5.0); TOTAL PROTEIN 6.9 g/dL (6.7-8.2)
== END 2020-11-01 23:59 | disposition home or self-care (01) ==
LOC: LAB.WCP 08:00
PROVIDERS: ATTEND Family Medicine
DX: R10.33 Periumbilical pain (principal)
CPT/HCPCS: 36415; 80053; 85025; 87493

== ENCOUNTER 2020-11-02 05:54 | Emergency (ER) | payer MEDICARE, OTHER ==
[2020-11-02] MEDS ORDERED: ONDANSETRON ODT 4 MG TABLET TL STA (06:14)
--- NOTE | 2020-11-02 06:16 | ED Physician Documentation ---
<Florecita Jones - Last Filed: 11/02/20 06:55> PD HPI ABD PAIN - Stated complaint Stated Complaint: NAUSEA - Chief complaint Chief Complaint: Abd Pain - History obtained from History obtained from: Patient - Additional information Additional information: 85-year-old man with history of coronary artery disease, high blood pressure, hyperlipidemia, presents with sudden onset nausea while here in the emergency department waiting for his to get a medical work-up. Patient states that he has had diarrhea on and off for the past [address] Cm for abdominal pain yesterday and had blood work done. also is supposed to do stool studies. He felt fine this morning but then had a sudden wave of nausea in the ED without any other accompanying symptoms. no diarrhea yet this morning. no vomitus. denies fevers. Review of Systems Ten Systems: 10 systems reviewed and negative Constitutional: denies: Fever, Chills GI: reports: Abdominal Pain, Nausea, Diarrhea : denies: Dysuria PD PAST MEDICAL HISTORY - Past Medical History Past Medical History: Yes Cardiovascular: Hypertension, High cholesterol, Coronary artery disease, [place], Valve disorder Respiratory: Pneumonia, Sleep apnea, CPAP use Neuro: None Endocrine/Autoimmune: None GI: None : Renal insuffiency Psych: None Musculoskeletal: None Derm: Eczema, Psoriasis - Past Surgical History Past Surgical History: Yes General: Cholecystectomy, Appendectomy, Hiatal hernia repair Cardiovascular: CABG, Coronary stent, Other HEENT: Tonsil/Adenoidectomy Derm: Skin cancer surgery - Present Medications Home Medications: Ambulatory Orders Medication Instructions Recorded Confirmed Atorvastatin Calcium [Lipitor] 80 mg PO DAILY 02/02/13 11/02/20 Fluticasone [Flonase] 1 sprays CLARK DAILY 02/02/13 11/02/20 Furosemide [Lasix] 30 mg PO DAILY 02/02/13 11/02/20 Losartan [Cozaar] 25 mg PO DAILY 02/02/13 11/02/20 Isosorbide Mononitrate [Isosorbide 60 mg PO DAILY 03/29/14 11/02/20 Mononitrate ER] Aspirin [[place] Aspirin EC] 81 mg PO DAILY 01/09/18 11/02/20 Cholecalciferol [Vitamin D3] 5,000 unit PO DAILY 01/09/18 11/02/20 Esomeprazole Magnesium [Nexium 40 mg PO BID 01/09/18 11/02/20 24Hr] Folic Acid 2,400 mcg PO DAILY 01/09/18 11/02/20 Nitroglycerin [Nitrostat] 0.4 mg SL Q5MIN PRN 01/09/18 11/02/20 cycloSPORINE [Restasis] 1 each EACHEYE BID 01/09/18 11/02/20 Cetirizine [ZyrTEC] 10 mg PO DAILY 05/22/18 11/02/20 Docusate Sodium 100 mg PO DAILY #15 capsule 05/27/19 11/02/20 Hydrocodone/Acetaminophen [[place] 1 each PO Q6H PRN #15 tablet 05/27/19 11/02/20 5-325 Tablet] Naproxen 375 mg PO BID #15 tablet 05/27/19 11/02/20 Ondansetron Odt [Zofran] 4 mg TL Q6H PRN #10 tablet 11/02/20 levoFLOXacin [Levaquin] 500 mg PO QD #10 tablet 11/02/20 metroNIDAZOLE [Flagyl] 500 mg PO BID #20 tablet 11/02/20 - Allergies Allergies/Adverse Reactions: Allergies Allergy/AdvReac Type Severity Reaction Status Date / Time Penicillins AdvReac Severe passed out Verified 01/14/18 08:33 codeine [Codeine] AdvReac Intermediate gi problems Verified 01/14/18 08:33 onion family Allergy Emesis Uncoded 01/15/18 11:00 - Social History Does the pt smoke?: No Smoking Status: Never smoker Does the pt drink ETOH?: Yes Does the pt have substance abuse?: No - Immunizations Immunizations are current?: No Immunizations: TDAP >10years/unknown - POLST Patient has POLST: No POLST Status: Full Code PD ED PE NORMAL - Vitals Vital signs reviewed: Yes - General General: Alert and oriented X 3, No acute distress, Well developed/nourished, Other (elderly appearing) - HEENT HEENT: Atraumatic, PERRL, EOMI - Neck Neck: Supple, no meningeal sign - Cardiac Cardiac: RRR - Respiratory Respiratory: No respiratory distress, Clear bilaterally - Abdomen Abdomen: Non tender, Non distended - Back Back: No CVA TTP - Derm Derm: Normal color - Extremities Extremities: No deformity - Neuro Neuro: Alert and oriented X 3 - Psych Psych: Normal mood, Normal affect Results - EKG (time done) 0607 Rate: Rate (enter#) (50) Rhythm: Sinus bradycardia Ischemia: Other (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 no acute STEMI) PD MEDICAL DECISION MAKING - ED course ED course: nausea and abdominal pain resolved s/p zofran and morphine. Patient stating, "I feel great!" ekg noncontributory. Patient endorsed to incoming daytime MD, pending CT abdomen. Departure - Departure Disposition: Home, Self Care Clinical Impression: Diverticulitis Condition: Stable Instructions: ED Diverticulitis Prescriptions: metroNIDAZOLE [Flagyl] 500 mg PO BID #20 tablet levoFLOXacin [Levaquin] 500 mg PO QD #10 tablet Ondansetron Odt [Zofran] 4 mg TL Q6H PRN #10 tablet PRN Reason: Nausea / Vomiting Comments: Your CT scan shows an area of inflammation and small area of your bowel that is consistent with a mild bacterial overgrowth. Usually this happens in a small outpouching from your large intestine. Fortunately, this is easily treatable with antibiotics and you have been started on these today. Please continue the antibiotics as directed at home until gone. You may take the nausea medicine as needed, as well. Discharge Date/Time: 11/02/20 09:32 <Daily Lozano - Last Filed: 11/02/20 18:16> Results - Vitals Vitals: Vital Signs - 24 hr 11/02/20 11/02/20 11/02/20 05:55 05:57 08:00 Temperature 37.1 C 37.1 C Heart Rate 63 63 70 Respiratory 14 14 16 Rate Blood Pressure 156/63 H 156/63 H 136/50 H O2 Saturation 95 95 94 11/02/20 09:11 Temperature Heart Rate 69 Respiratory 16 Rate Blood Pressure 124/60 O2 Saturation 95 Oxygen O2 Source [] Room air O2 Source Room air - Labs Labs: Laboratory Tests 11/02/20 11/02/20 06:30 06:30 WBC 6.7 RBC 3.58 L Hgb 12.2 L Hct 37.1 L MCV 103.6 H MCH 34.1 H MCHC 32.9 RDW 13.0 Plt Count 143 MPV 8.8 Neut # (Auto) 4.5 Lymph # (Auto) 1.2 L [place] # (Auto) 0.7 Eos # (Auto) 0.2 Baso # (Auto) 0.0 Absolute Nucleated RBC 0.00 Nucleated RBC % 0.0 Sodium 137 Potassium 4.0 Chloride 104 Carbon Dioxide 25 Anion Gap 8.0 BUN 32 H Creatinine 2.7 H Estimated GFR (MDRD) 23 L Glucose 112 H Calcium 9.7 Total Bilirubin 1.4 H AST 17 ALT 13 Alkaline Phosphatase 119 Total Protein 6.5 L Albumin 3.6 Globulin 2.9 Albumin/Globulin Ratio 1.2 Lipase 35
[2020-11-02] MEDS ORDERED: MORPHINE 2 MG/ML CARPUJECT IVP STA (06:22)
[2020-11-02] MEDS ORDERED: SODIUM CHLORIDE 0.9% 1,000 ML IV STA (06:22)
[2020-11-02] MEDS ORDERED: FAMOTIDINE 20 MG/2 ML VIAL IVP STA (06:23)
[2020-11-02 06:33] LABS: BASOPHILS % (AUTO) 0.3 %; EOSINOPHILS # (AUTO) 0.2 10^3/uL (0.0-0.7); EOSINOPHILS % (AUTO) 3.3 %; HCT - HEMATOCRIT 37.1 % (42.0-52.0); HGB - HEMOGLOBIN 12.2 g/dL (14.0-18.0); LYMPHOCYTES # (AUTO) 1.2 10^3/uL (1.5-3.5); LYMPHOCYTES % (AUTO) 18.2 %; MEAN CORPUSCULAR HEMOGLOBIN 34.1 pg (27.0-31.0); MEAN CORPUSCULAR HGB CONC 32.9 g/dL (32.0-36.0); MEAN CORPUSCULAR VOLUME 103.6 fL (80.0-94.0); MEAN PLATELET VOLUME 8.8 fL (7.4-11.4); MONOCYTES # (AUTO) 0.7 10^3/uL (0.0-1.0); NEUTROPHILS # (AUTO) 4.5 10^3/uL (1.5-6.6); NEUTROPHILS % (AUTO) 67.8 %; PLT - PLATELET COUNT 143 10^3/uL (130-450); RED BLOOD COUNT 3.58 10^6/uL (4.70-6.10); WHITE BLOOD COUNT 6.7 x10^3/uL (4.8-10.8)
[2020-11-02 06:45] LABS: ALBUMIN 3.6 g/dL (3.2-5.5); ALBUMIN/GLOBULIN RATIO 1.2 (1.0-2.2); BILIRUBIN,TOTAL 1.4 mg/dL (0.2-1.0); CALCIUM 9.7 mg/dL (8.5-10.3); CREATININE 2.7 mg/dL (0.6-1.2); TOTAL PROTEIN 6.5 g/dL (6.7-8.2)
[2020-11-02] MEDS ORDERED: levoFLOXacin 250 MG TABLET PO STA (08:53)
[2020-11-02] MEDS ORDERED: metroNIDAZOLE 250 MG TABLET PO STA (08:53)
--- NOTE | 2020-11-02 08:54 | CT Report ---
PROCEDURE: Abdomen/Pelvis WO INDICATIONS: abd pain, diffuse, diarrhea, nausea TECHNIQUE: Noncontrast 5 mm thick sections acquired from the diaphragms to the symphysis. 5 mm coronal and sagi ttal reformats were then performed. For radiation dose reduction, the following was used: automated exposure control, adjustment of mA and/or kV according to patient size. COMPARISON: 05/27/2019 FINDINGS: Image quality: Excellent. ABDOMEN: Lung bases: Lung bases are clear. Coronary artery calcifications, mitral valve prosthesis. Small hia tia hernia. Solid organs: Liver and spleen are normal in size. Gallbladder is surgically absent. Pancreas is n ormal in contours. No adrenal nodules. Kidneys are normal in size, without hydronephrosis or nephro lithiasis. Peritoneum and bowel: Appendectomy clip. No dilated bowel loops. No bowel wall thickening. No free ai r, free fluid, or abscess cavity. Sigmoid diverticulosis without evidence of diverticulitis. Probable prominent diverticuli off a loop of proximal ileum. Reference image 53/3 and image 23/6. Bilateral r enal cysts. Nodes and vessels: No retroperitoneal or mesenteric adenopathy by size criteria. Aortic ectasia with out aneurysm. Diffuse atherosclerotic calcifications. Miscellaneous: No ventral hernias. PELVIS: Genitourinary: Bladder wall thickness is normal. Miscellaneous: No inguinal hernias or adenopathy. Bones: No suspicious bony lesions. No vertebral body compression fractures. IMPRESSION: 1. Sigmoid diverticulosis without evidence of diverticulitis. 2. Probable incidental prominent proximal ileal diverticuli. 3. No evidence of acute abdominal process. 4. Coronary artery disease, remote valve replacement. Reviewed by: Haroon Carlisle MD on 11/02/2020 8:53 AM PDT Approved by: Haroon Carlisle MD on 11/02/2020 8:53 AM PDT Station ID: [id number]
[2020-11-02 09:12] VITALS: BP 124/60
== END 2020-11-02 09:32 | disposition home or self-care (01) ==
LOC: ED 05:54
DX: K57.12 Diverticulitis of small intestine without perforation or abscess without bleeding (principal); I10 Essential (primary) hypertension
CPT/HCPCS: 36415; 74176; 80053; 83690; 85025; 93005; 96361; 96374; 96375; 99284; A9270; Q0162

== ENCOUNTER 2020-11-09 09:19 | Outpatient (CLI) | payer MEDICARE, OTHER | END 2020-11-09 09:20 | disposition home or self-care (01) | LOC: LAB.R 09:19 | PROVIDERS: ATTEND Family Medicine | DX: R10.33 Periumbilical pain (principal) | CPT/HCPCS: 81599; 87045; 87329; 87427; 87449 ==

== ENCOUNTER 2020-11-19 08:00 | Outpatient (CLI) | payer MEDICARE, OTHER ==
[2020-11-19 13:48] LABS: BASOPHILS % (AUTO) 0.3 %; EOSINOPHILS # (AUTO) 0.2 10^3/uL (0.0-0.7); EOSINOPHILS % (AUTO) 2.7 %; HCT - HEMATOCRIT 36.5 % (42.0-52.0); HGB - HEMOGLOBIN 11.8 g/dL (14.0-18.0); LYMPHOCYTES # (AUTO) 1.3 10^3/uL (1.5-3.5); LYMPHOCYTES % (AUTO) 21.1 %; MEAN CORPUSCULAR HEMOGLOBIN 34.6 pg (27.0-31.0); MEAN CORPUSCULAR HGB CONC 32.3 g/dL (32.0-36.0); MEAN PLATELET VOLUME 9.2 fL (7.4-11.4); MONOCYTES # (AUTO) 0.5 10^3/uL (0.0-1.0); MONOCYTES % (AUTO) 7.6 %; NEUTROPHILS # (AUTO) 4.3 10^3/uL (1.5-6.6); NEUTROPHILS % (AUTO) 67.8 %; PLT - PLATELET COUNT 231 10^3/uL (130-450); RED BLOOD COUNT 3.41 10^6/uL (4.70-6.10); RED CELL DISTRIBUTION WIDTH 13.4 % (12.0-15.0); WHITE BLOOD COUNT 6.3 x10^3/uL (4.8-10.8)
[2020-11-19 14:01] LABS: ALBUMIN/GLOBULIN RATIO 1.4 (1.0-2.2); BILIRUBIN,TOTAL 1.1 mg/dL (0.2-1.0); CALCIUM 10.1 mg/dL (8.5-10.3); CREATININE 2.4 mg/dL (0.6-1.2); POTASSIUM 4.3 mmol/L (3.5-5.0); TOTAL PROTEIN 6.9 g/dL (6.7-8.2)
== END 2020-11-19 23:59 | disposition home or self-care (01) ==
LOC: LAB.N 08:00
PROVIDERS: ATTEND Nurse Practitioner
DX: R60.0 Localized edema (principal)
CPT/HCPCS: 36415; 80053; 83880; 85025

== ENCOUNTER 2020-11-19 10:13 | Outpatient (CLI) | payer MEDICARE, OTHER ==
--- NOTE | 2020-11-19 12:55 | XRAY Report ---
PROCEDURE: Chest 2 View X-Ray INDICATIONS: BILAT LEG EDEMA TECHNIQUE: 2 view(s) of the chest. COMPARISON: 01/07/2018 FINDINGS: Surgical changes and devices: None. Lungs and pleura: No pleural effusions or pneumothorax. Lungs are clear. Mediastinum: Mediastinal contours are normal. Heart size is normal. Mitral clips stable. Atheroscl erotic vascular calcification noted in the aortic arch. Bones and chest wall: No suspicious bony abnormalities. Soft tissues appear unremarkable. Mid thor acic compression fractures remain unchanged. Midline sternotomy wires noted. IMPRESSION: No acute cardiopulmonary findings Reviewed by: Daniel Gilmore MD on 11/19/2020 11:54 AM ELEN Approved by: Daniel Gilmore MD on 11/19/2020 11:54 AM AKHELDER Station ID: [id number]
== END 2020-11-19 10:14 | disposition home or self-care (01) ==
LOC: DI.N 10:13
PROVIDERS: ATTEND Nurse Practitioner
DX: R60.0 Localized edema (principal); I50.9 Heart failure, unspecified
CPT/HCPCS: 36415; 80053; 83880; 85025

== ENCOUNTER 2020-12-20 13:52 | Outpatient (CLI) | payer MEDICARE, OTHER | END 2020-12-20 13:53 | disposition critical access hospital (66) | LOC: EMS 13:52 | DX: R07.89 Other chest pain (principal) | CPT/HCPCS: A0425; A0429 ==

== ENCOUNTER 2020-12-20 14:00 | Emergency (ER) | payer MEDICARE, OTHER ==
[2020-12-20 14:15] VITALS: BP 114/82
--- NOTE | 2020-12-20 14:29 | ED Physician Documentation ---
PD HPI CHEST PAIN - Stated complaint Stated Complaint: CHEST PX - Chief complaint Chief Complaint: Cardiac - History obtained from History obtained from: Patient, Family - History of Present Illness Timing - onset during: Emotional event Pain level max: 4 Pain level now: 0 Improved by: Rest Worsened by: No: Exertion, Inspiration, Eating, Movement, Palpation Associated symptoms: No: Shortness of air, Diaphoresis, Nausea, Vomiting, Feeling faint / dizzy, General Weakness, Palpitations Similar symptoms before: Has not had sx before Recently seen: Not recently seen - Additional information Additional information: Patient is an 85-year-old male with an extensive cardiac history he states he had an angiogram on Saturday at the [facility] he is planned for a stent on 31 December. He has a history of multiple cardiac stents and 3 triple bypasses. He states that his fell at home today and he developed chest pain when he saw her on the ground. Resolved after EMS picked her up. Currently feeling better. He states that he has chest pain every day and this is no different than his usual chest pain. He states he was more concerned about his . Currently asymptomatic. He states he has been having this kind of chest pain since 1981. Review of Systems Constitutional: denies: Fever, Chills Cardiac: denies: Palpitations Respiratory: denies: Cough GI: denies: Vomiting, Diarrhea : denies: Dysuria Skin: denies: Rash Musculoskeletal: denies: Neck pain, Back pain Neurologic: denies: Headache PD PAST MEDICAL HISTORY - Past Medical History Cardiovascular: Hypertension, High cholesterol, Coronary artery disease, [place], Valve disorder Respiratory: Pneumonia, Sleep apnea, CPAP use Neuro: None Endocrine/Autoimmune: None GI: None : Renal insuffiency Psych: None Musculoskeletal: None Derm: Eczema, Psoriasis - Past Surgical History Past Surgical History: Yes General: Cholecystectomy, Appendectomy, Hiatal hernia repair Cardiovascular: CABG, Coronary stent, Other HEENT: Tonsil/Adenoidectomy Derm: Skin cancer surgery - Present Medications Home Medications: Ambulatory Orders Medication Instructions Recorded Confirmed Atorvastatin Calcium [Lipitor] 80 mg PO DAILY 02/02/13 11/02/20 Fluticasone [Flonase] 1 sprays CLARK DAILY 02/02/13 11/02/20 Furosemide [Lasix] 30 mg PO DAILY 02/02/13 11/02/20 Losartan [Cozaar] 25 mg PO DAILY 02/02/13 11/02/20 Isosorbide Mononitrate [Isosorbide 60 mg PO DAILY 03/29/14 11/02/20 Mononitrate ER] Aspirin [[place] Aspirin EC] 81 mg PO DAILY 01/09/18 11/02/20 Cholecalciferol [Vitamin D3] 5,000 unit PO DAILY 01/09/18 11/02/20 Esomeprazole Magnesium [Nexium 40 mg PO BID 01/09/18 11/02/20 24Hr] Folic Acid 2,400 mcg PO DAILY 01/09/18 11/02/20 Nitroglycerin [Nitrostat] 0.4 mg SL Q5MIN PRN 01/09/18 11/02/20 cycloSPORINE [Restasis] 1 each EACHEYE BID 01/09/18 11/02/20 Cetirizine [ZyrTEC] 10 mg PO DAILY 05/22/18 11/02/20 Docusate Sodium 100 mg PO DAILY #15 capsule 05/27/19 11/02/20 Hydrocodone/Acetaminophen [[place] 1 each PO Q6H PRN #15 tablet 05/27/19 11/02/20 5-325 Tablet] Naproxen 375 mg PO BID #15 tablet 05/27/19 11/02/20 Ondansetron Odt [Zofran] 4 mg TL Q6H PRN #10 tablet 11/02/20 levoFLOXacin [Levaquin] 500 mg PO QD #10 tablet 11/02/20 metroNIDAZOLE [Flagyl] 500 mg PO BID #20 tablet 11/02/20 - Allergies Allergies/Adverse Reactions: Allergies Allergy/AdvReac Type Severity Reaction Status Date / Time Penicillins AdvReac Severe passed out Verified 01/14/18 08:33 codeine [Codeine] AdvReac Intermediate gi problems Verified 01/14/18 08:33 onion family Allergy Emesis Uncoded 01/15/18 11:00 - Social History Does the pt smoke?: No Smoking Status: Never smoker Does the pt drink ETOH?: Yes Does the pt have substance abuse?: No - Immunizations Immunizations are current?: No Immunizations: TDAP >10years/unknown - POLST Patient has POLST: No POLST Status: Full Code PD ED PE NORMAL - Vitals Vital signs reviewed: Yes - General General: Alert and oriented X 3, No acute distress - HEENT HEENT: Moist mucous membranes, Pharynx benign - Neck Neck: Supple, no meningeal sign - Cardiac Cardiac: RRR - Respiratory Respiratory: No respiratory distress, Clear bilaterally - Abdomen Abdomen: Soft, Non tender, Non distended - Back Back: No CVA TTP, No spinal TTP - Derm Derm: Warm and dry - Extremities Extremities: No edema, No calf tenderness / cord - Neuro Neuro: Alert and oriented X 3 Results - Vitals Vitals: Vital Signs - 24 hr 12/20/20 14:09 Temperature 37.1 C Heart Rate 78 Respiratory 14 Rate Blood Pressure 114/82 H O2 Saturation 95 Oxygen O2 Source [] Room air O2 Source Room air - EKG (time done) 1404 Rate: Rate (enter#) (63) Rhythm: NSR Intervals: RBBB Ischemia: Q waves (III, II, aVF) - Labs Labs: Laboratory Tests 12/20/20 12/20/20 12/20/20 14:50 14:50 14:50 WBC 5.4 RBC 3.53 L Hgb 12.3 L Hct 36.7 L MCV 104.0 H MCH 34.8 H MCHC 33.5 RDW 13.2 Plt Count 161 MPV 8.8 Neut # (Auto) 3.2 Lymph # (Auto) 1.4 L [place] # (Auto) 0.6 Eos # (Auto) 0.3 Baso # (Auto) 0.0 Absolute Nucleated RBC 0.00 Nucleated RBC % 0.0 Sodium 136 Potassium 3.8 Chloride 101 Carbon Dioxide 27 Anion Gap 8.0 BUN 38 H Creatinine 2.4 H Estimated GFR (MDRD) 26 L Glucose 111 H Calcium 10.0 Total Bilirubin 1.1 H AST 21 ALT 16 Alkaline Phosphatase 95 Troponin I High Sens 35.6 H* Total Protein 7.1 Albumin 4.0 Globulin 3.1 Albumin/Globulin Ratio 1.3 Lipase 25 - Rads (name of study) cxr Radiology: Final report received, EMP read contemporaneously, See rad report (No acute cardiopulmonary process demonstrated radiographically. ) PD MEDICAL DECISION MAKING - ED course Complexity details: reviewed results, re-evaluated patient, considered differential (No ST elevation [place], no aortic dissection, no PE, no tension pneumothorax, no aortic aneurysm), d/w patient ED course: 85-year-old male with chest pain when he saw his fall today. Asymptomatic here. He states that this is his usual pain. Does not want a repeat troponin or observation. He feels better now knowing that his is safe. 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 No acute findings on EKG or chest x-ray. Patient counseled regarding signs and symptoms for which I believe and urgent re-evaluation would be necessary. Patient with good understanding of and agreement to plan and is comfortable going home at this time This document was made in part using voice recognition software. While efforts are made to proofread this document, sound alike and grammatical errors may occur. Departure - Departure Disposition: 01 Home, Self Care Clinical Impression: Chest pain Qualifiers: Chest pain type: unspecified Qualified Code(s): R07.9 - Chest pain, unspecified Condition: Good Instructions: ED Heart Disease Risk Factors Follow-Up: your,doctor for reheck later this week [Other] Comments: Return if you worsen. Follow-up with your electrician elevator maintenance as scheduled for your stent. Follow-up with your doctor later this week for recheck.
[2020-12-20 14:57] LABS: BASOPHILS % (AUTO) 0.6 %; EOSINOPHILS # (AUTO) 0.3 10^3/uL (0.0-0.7); EOSINOPHILS % (AUTO) 4.8 %; HCT - HEMATOCRIT 36.7 % (42.0-52.0); HGB - HEMOGLOBIN 12.3 g/dL (14.0-18.0); LYMPHOCYTES # (AUTO) 1.4 10^3/uL (1.5-3.5); LYMPHOCYTES % (AUTO) 25.2 %; MEAN CORPUSCULAR HEMOGLOBIN 34.8 pg (27.0-31.0); MEAN CORPUSCULAR HGB CONC 33.5 g/dL (32.0-36.0); MEAN PLATELET VOLUME 8.8 fL (7.4-11.4); MONOCYTES # (AUTO) 0.6 10^3/uL (0.0-1.0); MONOCYTES % (AUTO) 10.1 %; NEUTROPHILS # (AUTO) 3.2 10^3/uL (1.5-6.6); NEUTROPHILS % (AUTO) 58.7 %; PLT - PLATELET COUNT 161 10^3/uL (130-450); RED BLOOD COUNT 3.53 10^6/uL (4.70-6.10); RED CELL DISTRIBUTION WIDTH 13.2 % (12.0-15.0); WHITE BLOOD COUNT 5.4 x10^3/uL (4.8-10.8)
[2020-12-20 15:07] LABS: ALBUMIN/GLOBULIN RATIO 1.3 (1.0-2.2); BILIRUBIN,TOTAL 1.1 mg/dL (0.2-1.0); CREATININE 2.4 mg/dL (0.6-1.2); POTASSIUM 3.8 mmol/L (3.5-5.0); TOTAL PROTEIN 7.1 g/dL (6.7-8.2)
--- NOTE | 2020-12-20 15:16 | XRAY Report ---
PROCEDURE: Chest 1 View X-Ray INDICATIONS: Chest pain TECHNIQUE: One view of the chest was acquired. COMPARISON: 11/19/2020 FINDINGS: Surgical changes and devices: Median sternotomy changes. Lungs and pleura: No pleural effusions or pneumothorax. Lungs are clear. Mediastinum: Mediastinal contours appear normal. Heart size is normal. Bones and chest wall: No suspicious bony lesions. Overlying soft tissues appear unremarkable. IMPRESSION: No acute cardiopulmonary process demonstrated radiographically. Reviewed by: Stanley Henson MD on 12/20/2020 3:14 PM PDT Approved by: Stanley Henson MD on 12/20/2020 3:14 PM PDT Station ID: [id number]
== END 2020-12-20 15:38 | disposition home or self-care (01) ==
LOC: EDUNIT# → ED 14:00
DX: R07.9 Chest pain, unspecified (principal); I10 Essential (primary) hypertension; Z95.1 Presence of aortocoronary bypass graft; Z79.82 Long term (current) use of aspirin; Z86.79 Personal history of other diseases of the circulatory system; I25.2 Old myocardial infarction
CPT/HCPCS: 36415; 80053; 83690; 84484; 85025; 93005; 99284